=== PATIENT | male | born 2000 | race Caucasian/White ===

== ENCOUNTER 2022-10-27 12:41 | Outpatient (OUT) | payer OTHER, SELFPAY ==
[2022-10-27 12:45] VITALS: BP 128/72; PULSE 91; RESP 18; TEMP 36.8; O2SAT 96
[2022-10-27] MEDS: SODIUM CHLORIDE 0.9% IV (13:22)
[2022-10-27] MEDS: INFLIXIMAB DYYB IV (13:22)
== END 2022-10-27 12:42 | disposition home or self-care (01) ==
DX: K51.90 Ulcerative colitis, unspecified, without complications (principal); K58.9 Irritable bowel syndrome, unspecified
CPT/HCPCS: 36415; 96365; 96366; Q5103

== ENCOUNTER 2023-01-03 08:21 | Outpatient (RCR) | payer OTHER, SELFPAY ==
[2023-01-03 15:03] VITALS: BP 120/80; PULSE 80; RESP 18; TEMP 36.6
[2023-01-03 15:28] LABS: Basophils Percent Auto 0.4 % (0.2-2.0); Eosinophils Absolute Auto 0.1 10^3/uL (0.0-0.7); Eosinophils Percent Auto 1.7 % (0.9-7.0); Hematocrit 44.9 % (42.0-54.0); Hemoglobin 14.9 g/dL (14.0-18.0); Immature Granulocytes Abs Auto 0.01 10^3/uL (0.00-0.03); Immature Granulocytes Pct Auto 0.2 % (0.0-0.5); Lymphocytes Absolute Auto 1.3 10^3/uL (1.2-3.8); Lymphocytes Percent Auto 28.8 % (20.5-60.0); Mean Corpuscular HGB Conc 33.2 g/dL (29.9-35.2); Mean Corpuscular Hemoglobin 30.8 pg (25.9-34.0); Mean Corpuscular Volume 92.8 fL (80.0-94.0); Mean Platelet Volume 11.6 fL (9.5-13.5); Monocytes Absolute Auto 0.4 10^3/uL (0.3-0.8); Monocytes Percent Auto 8.8 % (1.7-12.0); Neutrophils Absolute Auto 2.8 10^3/uL (1.4-6.5); Neutrophils Percent Auto 60.1 % (43.0-75.0); Platelet Count 196 10^3/uL (150-450); Red Blood Count 4.84 10^6/uL (4.70-6.10); Red Cell Distribution Width 11.9 % (11.0-15.0); White Blood Count 4.7 10^3/uL (4.0-11.0)
[2023-01-03] MEDS: INFLIXIMAB DYYB IV (15:30)
[2023-01-03] MEDS: SODIUM CHLORIDE 0.9% IV (15:30)
[2023-01-03 15:34] LABS: Erythrocyte Sedimentation Rate 18 mm/hr (<=15)
--- NOTE | 2023-01-03 15:47 | PC.NURSE ---
patient declines premedication of tylenol, benadryl or solumedrol
[2023-01-03 15:59] VITALS: BP 124/74; PULSE 85; RESP 16; O2SAT 95
--- NOTE | 2023-01-03 16:00 | PC.NURSE ---
1555 tolerating infusion, started at 15ml/hr for vtbi of 3.75, 20 ml/hr vtbi 5ml, 40 ml/hr vtbi 10 ml, 80ml/vtbi 20 ml, 160ml for remainder of infusion. Tolerating well no itching, no shortness of breath. IV site clear.
[2023-01-03 16:06] LABS: Alanine Aminotransferase 30 U/L (16-63); Albumin Level 3.9 g/dL (3.4-5.0); Alkaline Phosphatase 97 U/L (46-116); Aspartate Amino Transferase 19 U/L (15-37); Bilirubin Direct 0.1 mg/dL (0.0-0.2); Bilirubin Total 0.4 mg/dL (0.2-1.0); Globulin 3.9 g/dL; Total Protein 7.8 g/dL (6.4-8.2)
[2023-01-03 16:08] LABS: C Reactive Protein <0.2 mg/dL (<=1.0)
[2023-01-03 16:25] VITALS: BP 119/78; PULSE 80; RESP 16; TEMP 36.3; O2SAT 96
--- NOTE | 2023-01-03 16:26 | PC.NURSE ---
tolerating infusion wihtout s/s of reaction. Eating meal at present
--- NOTE | 2023-01-03 16:41 | PC.NURSE ---
Labs faxed to Dr[facility]. Tolerating transfusion without any s/s of reaction.
--- NOTE | 2023-01-03 17:41 | PC.NURSE ---
Infusion without diffuculty. appears to be resting, eyes closed, respirations with ease
[2023-01-03 18:02] VITALS: BP 124/76; PULSE 76; RESP 16; TEMP 36.6; O2SAT 98
== END 2023-01-16 23:59 | disposition home or self-care (01) ==
LOC: INF 08:21
DX: K51.90 Ulcerative colitis, unspecified, without complications (principal)
CPT/HCPCS: 36415; 80076; 85025; 85652; 86140; 96365; 96366; Q5103

== ENCOUNTER 2023-03-16 07:30 | Outpatient (RCR) | payer OTHER, SELFPAY ==
[2023-03-16 11:04] VITALS: BP 129/71; PULSE 86; RESP 18; TEMP 36.8; O2SAT 96
[2023-03-16] MEDS: INFLIXIMAB DYYB IV (11:08)
[2023-03-16] MEDS: SODIUM CHLORIDE 0.9% IV (11:08)
[2023-03-16 11:11] LABS: Basophils Percent Auto 0.6 % (0.2-2.0); Eosinophils Absolute Auto 0.2 10^3/uL (0.0-0.7); Eosinophils Percent Auto 3.1 % (0.9-7.0); Hematocrit 47.7 % (42.0-54.0); Hemoglobin 15.8 g/dL (14.0-18.0); Immature Granulocytes Abs Auto 0.01 10^3/uL (0.00-0.03); Immature Granulocytes Pct Auto 0.2 % (0.0-0.5); Lymphocytes Absolute Auto 1.7 10^3/uL (1.2-3.8); Lymphocytes Percent Auto 32.4 % (20.5-60.0); Mean Corpuscular HGB Conc 33.1 g/dL (29.9-35.2); Mean Corpuscular Hemoglobin 30.4 pg (25.9-34.0); Mean Corpuscular Volume 91.9 fL (80.0-94.0); Mean Platelet Volume 11.1 fL (9.5-13.5); Monocytes Absolute Auto 0.6 10^3/uL (0.3-0.8); Monocytes Percent Auto 10.8 % (1.7-12.0); Neutrophils Absolute Auto 2.7 10^3/uL (1.4-6.5); Neutrophils Percent Auto 52.9 % (43.0-75.0); Platelet Count 198 10^3/uL (150-450); Red Blood Count 5.19 10^6/uL (4.70-6.10); Red Cell Distribution Width 11.8 % (11.0-15.0); White Blood Count 5.1 10^3/uL (4.0-11.0)
--- NOTE | 2023-03-16 11:14 | PC.NURSE ---
1055 Arrival ambulatory to chair 2. Alert oriented. no complaints offered, offered drink/food/blanket/pillow, patient declines at this time. seated in recliner. Iv initiated rt forearm wiht#22 on 1 attempt tolerated well. labs drawn and sent to lab. 1110 Inflectra initiated utilizing multistep function: step 1 15ml/hr for 15 mins step 2 20 ml/hr for 15 min step 3 40 ml/hr for 15 min step 4 80 ml/hr for 15 min step 5 160ml/hr for remainder of infusion Intructed to call for any type of reaction. Patient declines tylenol and benadry.
[2023-03-16 11:15] LABS: Erythrocyte Sedimentation Rate 14 mm/hr (<=15)
[2023-03-16 11:30] LABS: Alanine Aminotransferase 37 U/L (16-63); Albumin Globulin Ratio 0.9; Albumin Level 3.5 g/dL (3.4-5.0); Alkaline Phosphatase 81 U/L (46-116); Aspartate Amino Transferase 20 U/L (15-37); BUN Creatinine Ratio 10.1; Bilirubin Direct 0.1 mg/dL (0.0-0.2); Bilirubin Total 0.6 mg/dL (0.2-1.0); Calcium 9.2 mg/dL (8.5-10.1); Carbon Dioxide 31.9 mmol/L (21.0-32.0); Chloride 105 mmol/L (98-107); Estimated GFR (African America >60 (>=60); Estimated GFR (Non-African Ame >60 (>=60); Globulin 4.1 g/dL; Glucose 92 mg/dL (74-106); Potassium 3.9 mmol/L (3.5-5.1); Sodium 143 mmol/L (136-145); Total Protein 7.6 g/dL (6.4-8.2)
[2023-03-16 11:31] LABS: C Reactive Protein <0.50 mg/dL (<=0.50)
--- NOTE | 2023-03-16 11:33 | PC.NURSE ---
1130 Tolerating infusion without difficulty. no s/s of rxn
--- NOTE | 2023-03-16 13:44 | PC.NURSE ---
1145 tolerating infusion without any problems, resting quietly in recliner, eyes closed respirations with ease
--- NOTE | 2023-03-16 13:44 | PC.NURSE ---
1200 iv infusion rate is being titrated every 15 mins as documented above. tolerating well
--- NOTE | 2023-03-16 13:46 | PC.NURSE ---
1300 inusion infusing at 160 ml hr, tolerating well, reclined in recliner, eyes shut respirations with ease.
--- NOTE | 2023-03-16 13:46 | PC.NURSE ---
1330 infusion completed. tolerated well with no s/s of reaction. IV site dc'd catheter intact, cotton ball applied, pressure applied. wrapped with coban, patient tolerated well, released ambulatory.
== END 2023-03-18 23:59 | disposition home or self-care (01) ==
LOC: INF 07:30
DX: K58.9 Irritable bowel syndrome, unspecified (principal)
CPT/HCPCS: 36415; 80048; 80076; 85025; 85652; 86140; 96365; 96366; Q5103

== ENCOUNTER 2023-05-21 07:35 | Outpatient (RCR) | payer OTHER, SELFPAY ==
[2023-05-21] MEDS: INFLIXIMAB DYYB IV (09:24)
[2023-05-21] MEDS: SODIUM CHLORIDE 0.9% IV (09:24)
[2023-05-21 09:45] VITALS: BP 124/77; PULSE 82; RESP 16; TEMP 36.6; O2SAT 98
[2023-05-21 10:00] VITALS: BP 124/77; PULSE 92; RESP 14; TEMP 36.4; O2SAT 96
[2023-05-21 10:00] LABS: Basophils Percent Auto 0.6 % (0.2-2.0); Eosinophils Absolute Auto 0.2 10^3/uL (0.0-0.7); Eosinophils Percent Auto 4.4 % (0.9-7.0); Hematocrit 45.7 % (42.0-54.0); Hemoglobin 15.3 g/dL (14.0-18.0); Immature Granulocytes Abs Auto 0.02 10^3/uL (0.00-0.03); Immature Granulocytes Pct Auto 0.4 % (0.0-0.5); Lymphocytes Percent Auto 38.3 % (20.5-60.0); Mean Corpuscular HGB Conc 33.5 g/dL (29.9-35.2); Mean Corpuscular Hemoglobin 30.3 pg (25.9-34.0); Mean Corpuscular Volume 90.5 fL (80.0-94.0); Mean Platelet Volume 11.6 fL (9.5-13.5); Monocytes Absolute Auto 0.6 10^3/uL (0.3-0.8); Monocytes Percent Auto 11.4 % (1.7-12.0); Neutrophils Absolute Auto 2.3 10^3/uL (1.4-6.5); Neutrophils Percent Auto 44.9 % (43.0-75.0); Platelet Count 184 10^3/uL (150-450); Red Blood Count 5.05 10^6/uL (4.70-6.10); Red Cell Distribution Width 12.1 % (11.0-15.0); White Blood Count 5.2 10^3/uL (4.0-11.0)
[2023-05-21 10:09] LABS: Alanine Aminotransferase 26 U/L (16-63); Albumin Globulin Ratio 0.8; Albumin Level 3.4 g/dL (3.4-5.0); Alkaline Phosphatase 85 U/L (46-116); Anion Gap 10.8; Aspartate Amino Transferase 13 U/L (15-37); BUN Creatinine Ratio 10.4; Bilirubin Direct 0.1 mg/dL (0.0-0.2); Bilirubin Total 0.3 mg/dL (0.2-1.0); C Reactive Protein <0.50 mg/dL (<=0.50); Calcium 8.5 mg/dL (8.5-10.1); Carbon Dioxide 31.6 mmol/L (21.0-32.0); Chloride 104 mmol/L (98-107); Estimated GFR (African America >60 (>=60); Estimated GFR (Non-African Ame >60 (>=60); Globulin 4.1 g/dL; Glucose 89 mg/dL (74-106); Potassium 3.4 mmol/L (3.5-5.1); Sodium 143 mmol/L (136-145); Total Protein 7.5 g/dL (6.4-8.2)
[2023-05-21 10:15] VITALS: BP 112/71; PULSE 76; RESP 14; TEMP 36.1; O2SAT 96
[2023-05-21 10:27] LABS: Erythrocyte Sedimentation Rate 14 mm/hr (<=15)
[2023-05-21 10:40] VITALS: BP 124/75; PULSE 92; RESP 14; TEMP 33.3; O2SAT 96
[2023-05-21 11:15] VITALS: BP 127/71; PULSE 85; RESP 16; TEMP 36; O2SAT 98
[2023-05-21 11:40] VITALS: BP 120/74; PULSE 84; RESP 14; TEMP 36.1; O2SAT 98
--- NOTE | 2023-05-21 13:54 | PC.NURSE ---
0855: Pt. to [facility] amb. for Inflectra infusion. Seated in recliner. VSS. #22 gauge IV initiated to right ac on first attempt without difficulty. Blood drawn from IV for ordered labs. Flushes easily without redness or edema. Pt. tolerated without c/o.
--- NOTE | 2023-05-21 14:11 | PC.NURSE ---
0924: IV Inflectra initiated at this time. Pt. given OJ. Declines wanting to eat. 0945: VSS. Denies needs or c/o. 1000: Cont. to tolerate infusion without c/o. VSS. IV site remains clear. 1015: No new changes observed. Pt. resting with eyes closed. VSS. 1100: Pt. awake. Denies c/o or needs. 1140: Infusion completed without s&s of transfusion reaction. IV flushed with saline and d/c'c. 1145: D/c'd amb. to home.
== END 2023-06-17 23:59 | disposition home or self-care (01) ==
LOC: INF 07:35
DX: K58.9 Irritable bowel syndrome, unspecified (principal)
CPT/HCPCS: 36415; 80048; 80076; 85025; 85652; 86140; 96365; 96366; Q5103

== ENCOUNTER 2023-07-19 07:26 | Outpatient (RCR) | payer OTHER, SELFPAY ==
[2023-07-19 10:07] VITALS: BP 129/76; PULSE 100; TEMP 36.6; O2SAT 98
--- NOTE | 2023-07-19 10:15 | PC.NURSE ---
1000 arrival ambulatory to chair 4. alert oriented. iv initiated RACF, labs obtained. 1010 breakfast ordered.
[2023-07-19] MEDS: INFLIXIMAB DYYB IV (10:38)
[2023-07-19] MEDS: SODIUM CHLORIDE 0.9% IV (10:38)
[2023-07-19 10:46] LABS: Basophils Percent Auto 0.5 % (0.2-2.0); Eosinophils Absolute Auto 0.1 10^3/uL (0.0-0.7); Eosinophils Percent Auto 2.5 % (0.9-7.0); Hematocrit 42.9 % (42.0-54.0); Hemoglobin 14.1 g/dL (14.0-18.0); Immature Granulocytes Abs Auto 0.01 10^3/uL (0.00-0.03); Immature Granulocytes Pct Auto 0.2 % (0.0-0.5); Lymphocytes Absolute Auto 1.3 10^3/uL (1.2-3.8); Lymphocytes Percent Auto 32.7 % (20.5-60.0); Mean Corpuscular HGB Conc 32.9 g/dL (29.9-35.2); Mean Corpuscular Hemoglobin 30.2 pg (25.9-34.0); Mean Corpuscular Volume 91.9 fL (80.0-94.0); Mean Platelet Volume 11.5 fL (9.5-13.5); Monocytes Absolute Auto 0.4 10^3/uL (0.3-0.8); Neutrophils Absolute Auto 2.2 10^3/uL (1.4-6.5); Neutrophils Percent Auto 54.1 % (43.0-75.0); Platelet Count 170 10^3/uL (150-450); Red Blood Count 4.67 10^6/uL (4.70-6.10); Red Cell Distribution Width 11.9 % (11.0-15.0)
[2023-07-19 10:59] LABS: Erythrocyte Sedimentation Rate 14 mm/hr (<=15)
[2023-07-19 11:15] LABS: Alanine Aminotransferase 26 U/L (16-63); Albumin Level 3.6 g/dL (3.4-5.0); Alkaline Phosphatase 69 U/L (46-116); Anion Gap 12.6; Aspartate Amino Transferase 15 U/L (15-37); BUN Creatinine Ratio 13.3; Bilirubin Direct 0.2 mg/dL (0.0-0.2); Bilirubin Total 0.8 mg/dL (0.2-1.0); Carbon Dioxide 26.7 mmol/L (21.0-32.0); Chloride 105 mmol/L (98-107); Estimated GFR (African America >60 (>=60); Estimated GFR (Non-African Ame >60 (>=60); Globulin 3.6 g/dL; Glucose 122 mg/dL (74-106); Potassium 3.3 mmol/L (3.5-5.1); Sodium 141 mmol/L (136-145); Total Protein 7.2 g/dL (6.4-8.2)
[2023-07-19 11:20] LABS: C Reactive Protein <0.50 mg/dL (<=0.50)
[2023-07-19 11:32] VITALS: BP 147/79; PULSE 91; TEMP 36.9; O2SAT 98
--- NOTE | 2023-07-19 11:39 | PC.NURSE ---
1115 tolerating infusion without any s/s of rxn. titrated according to MAR.
--- NOTE | 2023-07-19 11:40 | PC.NURSE ---
eats 100% breakfast. ambulated to bathroom
== END 2023-07-20 15:28 | disposition home or self-care (01) ==
LOC: INF 07:26
DX: K51.00 Ulcerative (chronic) pancolitis without complications (principal); K52.9 Noninfective gastroenteritis and colitis, unspecified; D84.9 Immunodeficiency, unspecified
CPT/HCPCS: 80048; 80076; 85025; 85652; 86140; 96365; 96366; Q5103

== ENCOUNTER 2023-08-29 21:12 | Emergency (ER) | payer OTHER, SELFPAY ==
[2023-08-29 21:29] VITALS: BP 134/79; PULSE 91; TEMP 37.2; O2SAT 100; BMI 22.9
--- OUTSIDE RECORDS SUMMARY | 2023-08-29 21:30 | XMS_ITS | CCD ---
Author Organization [facility] Care Team Providers Care Applications Programmer Name Role Phone MISC, DOCTOR Admitting Unavailable MISC, DOCTOR Consulting Unavailable MISC, DOCTOR Attending Unavailable REQUEST, NONE LISTED Primary Care Unavaila ble MISC, DOCTOR Admitting Unavailable MISC, DOCTOR Consulting Unavailable MISC, DOCTOR Attending Unavailable REQUEST, NONE LISTED Primary Care Unavaila ble MISC, DOCTOR Admitting Unavailable MISC, DOCTOR Consulting Unavailable MISC, DOCTOR Attending Unavailable REQUEST, NONE LISTED Primary Care Unavaila ble MISC, DR BELLA Admitting Unavailable MISC, DR BELLA Consulting Unavailable REQUEST, NONE LISTED Primary Care Unavaila ble MISC, DOCTOR Attending Unavailable MISC, DOCTOR Attending Unavailable MISC, DR BELLA Admitting Unavailable MISC, DR BELLA Consulting Unavailable REQUEST, NONE LISTED Primary Care Unavaila ble MISC, DR BELLA Admitting Unavailable MISC, DR BELLA Consulting Unavailable MISC, DOCTOR Attending Unavailable REQUEST, NONE LISTED Primary Care Unavaila ble Juan Srinivasan MD Primary Care Provider JOSI MARIANO Attending Unavailable UNKNOWN Referring Unavailable JUAN SRINIVASAN Primary Care Unavailable JOSI MARIANO Attending Unavailable JUAN SRINIVASAN Primary Care Unavailable JUAN SRINIVASAN Referring Unavailable JOSI MARIANO Attending Unavailable JOSI MARIANO Referring Unavailable JUAN SRINIVASAN Primary Care Unavailable Provider, None Primary Care Unavailable Virginia Llanes PA-C Admitting Unavailable Virginia Llanes PA-C Attending Unavailable Provider, None Primary Care Unavailable NO FAMILY, PHYSICIAN Primary Care Provider Unava ilable DO Garrett Dominguez Jr Attending Provider [phone] DO Chad Wren Attending Provider MD Josué Kimble Referring Provider NO FAMILY, PHYSICIAN Primary Care Unavailable Chad Wren Attending Unavailable Chad Wren Admitting Unavailable NO FAMILY, PHYSICIAN Primary Care Unavailable Garrett Dominguez Jr Attending Unavailable Garrett Dominguez Jr Admitting Unavailable Garrett Dominguez Jr Admitting Unavailable Josué Kimble Referring Unavail able NO FAMILY, PHYSICIAN Primary Care Unavailable Garrett Dominguez Jr Attending Unavailable Allergies Allergy Classification Reported Allergen(s) Allergy Type Date of Onset Reaction(s) Facility (1 source) No Known Medication Allergies; Translations: [No Known Medication Allergies] Propensity to adverse reactions to drug (disorder) [facility] Repository Medications Current Medications Medication Drug Class(es) Dates Sig (Normalized) Sig (Original) inFLIXimab-dyyb 100 mg injection (1 source) Tumor Necrosis Factor Yuri Start: 03-29-2021 inFLIXimab-dyyb (INFLECTRA) 100 MG SOLR injection 400mg IV Infusion every 8 weeks 4 Each 5 03/29/2021 Active Problems Active Problems Problem Classification Problem Date Documented Da te Episodic/Chronic Deficiency and other anemia (1 source) Iron deficiency anemia due to blood loss; Translations: [Iron deficiency anemia secondary to blood loss (chronic)] Onset: 05-05-2015 Resolved: 04-24-2016 04-24-2016 Chronic Immunity disorders (1 source) Immunosuppression; Translations: [Immunodeficiency, unspecified] Onset: 11-04-2015 11-04-2015 Chronic Regional enteritis and ulcerative colitis (5 sources) Ulcerative (chronic) pancolitis without complications; Translations: [Ulcerative pancolitis] Onset: 05-13-2015 Chronic Past or Other Problems Problem Classification Problem Date Documented Da te Episodic/Chronic Abdominal pain (1 source) Abdominal pain; Translations: [Unspecified abdominal pain] Onset: 05-05-2015 Resolved: 05-05-2015 05-05-2015 Episodic Gastrointestinal hemorrhage (2 sources) Hematochezia; Translations: [Melena] Onset: 05-05-2015 Resolved: 05-09-2015 05-09-2015 Episodic Noninfectious gastroenteritis (1 source) Colitis; Translations: [Noninfective gastroenteritis and colitis, unspecified] Onset: 05-06-2015 Resolved: 04-24-2016 04-24-2016 Episodic Results Test Name Value Interpretation Reference Range Facility Alanine aminotransferase [En zymatic activity/volume] in Serum or PlasmaOrdered By: Chad Wren on 03-29-2023 ALT [Catalytic activity/Vol] 18 U/L 7-52 [facility] Albumin [Mass/volume] in Ser um or Plasma by Bromocresol green (BCG) dye binding methoOrdered By: Chad Wren on 03-29-2023 Albumin BCG dye [Mass/Vol] 4.2 g/dL 3.5-5.7 [facility] Alkaline phosphatase [Enzyma tic activity/volume] in Serum or PlasmaOrdered By: Chad Wren on 03-29-2023 ALP [Catalytic activity/Vol] 65 U/L 34-104 [facility] Aspartate aminotransferase [ Enzymatic activity/volume] in Serum or PlasmaOrdered By: Chad Wren on 03-29-2023 AST [Catalytic activity/Vol] 15 U/L 13-39 [facility] Basophils Auto (Bld) [#/Vol] Ordered By: Chad Wren on 03-29-2023 Basophils (Bld) [#/Vol] 0.0 10*3/uL 0.0-0.2 [facility] Basophils/100 WBC Auto (Bld) Ordered By: Chad Wren on 03-29-2023 Basophils/100 WBC (Bld) 0.2 % . [facility] Bilirubin.total [Mass/volume ] in Serum or PlasmaOrdered By: Chad Wren on 03-29-2023 Bilirubin [Mass/Vol] 0.8 mg/dL 0.3-1.0 [facility] Calcium [Mass/volume] in Ser um or PlasmaOrdered By: Chad Wren on 03-29-2023 Calcium [Mass/Vol] 9.4 mg/dL 8.6-10.3 [facility] Carbon dioxide, total [Moles /volume] in Serum or PlasmaOrdered By: Chad Wren on 03-29-2023 CO2 [Moles/Vol] 30.2 mmol/L 21.0-31.0 [facility] Chloride [Moles/volume] in S mitzy or PlasmaOrdered By: Chad Wren on 03-29-2023 Chloride [Moles/Vol] 106 mmol/L 98-107 [facility] Cholesterol [Mass/volume] in Serum or PlasmaOrdered By: Chad Wren on 03-29-2023 Cholesterol [Mass/Vol] 152 mg/dL 140-200 [facility] Comment on above: Chol less than 200 m g/dl low riskChol 201-239 mg/dl borderline riskChol 240 mg/dl and greater high risk Cholesterol in LDL Calc [Mas s/Vol]Ordered By: Chad Wren on 03-29-2023 Cholesterol in LDL [Mass/Vol] 89 mg/dL 0-100 [facility] Comment on above: LDL ATP III CLASSIFI CATIONLDL less than 100 mg/dL OptimalLDL 100-129 mg/dL Near or above optimalLDL 130-159 mg/dL Borderline highLDL 160-189 mg/dL HighLDL greater than 189 mg/dL Very high Cholesterol in VLDL Calc [Ma ss/Vol]Ordered By: Chad Wren on 03-29-2023 Cholesterol in VLDL [Mass/Vol] 13 mg/dL [facility] Complete Blood Count no refl exon 03-29-2023 Basophils (Bld) [#/Vol] 0.0 10*3/uL Normal 0.0-0.2 [facility] Comment on above: Result Comment: PERF ORMED BY: [facility] [address] [place] [address] PATHOLOGIST [employer] ALBERTO AGUIAR M.D. Performed By: #### C MP, CHC CBC, LIPID, TSH3, T4T #### [facility] [address] [place] [address] [place] Basophils/100 WBC (Bld) 0.2 % Normal . [facility] Comment on above: Performed By: #### C MP, CHC CBC, LIPID, TSH3, T4T #### [facility] [address] [place] [id number] [place] Eosinophils (Bld) [#/Vol] 0.1 10*3/uL Normal 0.0-0.45 [facility] Comment on above: Performed By: #### C MP, CHC CBC, LIPID, TSH3, T4T #### [facility] [address] [place] [id number] [place] Eosinophils/100 WBC (Bld) 2.1 % Normal . [facility] Comment on above: Performed By: #### C MP, CHC CBC, LIPID, TSH3, T4T #### [address] Erythrocyte distribution width (RBC) [Ratio] 12.3 % Normal 12.0-14.8 [facility] Comment on above: Performed By: #### C MP, CHC CBC, LIPID, TSH3, T4T #### [address] Hematocrit (Bld) [Volume fraction] 45.7 % Normal 38.8-50.0 [facility] Comment on above: Performed By: #### C MP, CHC CBC, LIPID, TSH3, T4T #### [address] Hemoglobin (Bld) [Mass/Vol] 15.5 g/dL Normal 13.0-17.0 [facility] Comment on above: Performed By: #### C MP, CHC CBC, LIPID, TSH3, T4T #### [address] Lymphocytes (Bld) [#/Vol] 2.2 10*3/uL Normal 1.00-4.8 [facility] Comment on above: Performed By: #### C MP, CHC CBC, LIPID, TSH3, T4T #### [address] Lymphocytes/100 WBC (Bld) 40.9 % Normal . [facility] Comment on above: Performed By: #### C MP, CHC CBC, LIPID, TSH3, T4T #### [address] MCH (RBC) [Entitic mass] 30.7 pg Normal 27.5-35.2 [facility] Comment on above: Performed By: #### C MP, CHC CBC, LIPID, TSH3, T4T #### [address] MCV (RBC) [Entitic vol] 90.5 fL Normal 83.5-101 [facility] Comment on above: Performed By: #### C MP, CHC CBC, LIPID, TSH3, T4T #### [facility] [address] [place] [address] Mean Corpuscular HGB Conc 33.9 g/dL Normal 32.5-35.6 [facility] Comment on above: Performed By: #### C MP, CHC CBC, LIPID, TSH3, T4T #### [address] Monocytes (Bld) [#/Vol] 0.4 10*3/uL Normal 0.0-0.8 [facility] Comment on above: Performed By: #### C MP, CHC CBC, LIPID, TSH3, T4T #### [address] Monocytes/100 WBC (Bld) 8.1 % Normal . [facility] Comment on above: Performed By: #### C MP, CHC CBC, LIPID, TSH3, T4T #### [address] Neutrophils (Bld) [#/Vol] 2.6 10*3/uL Normal 1.8-7.7 [facility] Comment on above: Performed By: #### C MP, CHC CBC, LIPID, TSH3, T4T #### [address] Neutrophils/100 WBC (Bld) 48.7 % Normal . [facility] Comment on above: Performed By: #### C MP, CHC CBC, LIPID, TSH3, T4T #### [place] [address] [place] NRBC% 0.2 /100{WBC} Normal 0-0.5 [facility] Comment on above: Performed By: #### C MP, CHC CBC, LIPID, TSH3, T4T #### [address] Platelet mean volume (Bld) [Entitic vol] 10.5 fL High 6.6-10.1 [facility] Comment on above: Performed By: #### C MP, CHC CBC, LIPID, TSH3, T4T #### [facility] [address] Platelets (Bld) [#/Vol] 188 10*3/uL Normal 150-450 [facility] Comment on above: Performed By: #### C MP, CHC CBC, LIPID, TSH3, T4T #### [facility] [address] RBC (Bld) [#/Vol] 5.05 10*6/uL Normal 3.90-5.60 [facility] Comment on above: Performed By: #### C MP, CHC CBC, LIPID, TSH3, T4T #### [address] WBC (Bld) [#/Vol] 5.4 10*3/uL Normal 4.1-10.5 [facility] Comment on above: Performed By: #### C MP, CHC CBC, LIPID, TSH3, T4T #### [facility] [address] [place] [address] Comprehensive Metabolic Pane rebel 03-29-2023 Albumin [Mass/Vol] 4.2 g/dL Normal 3.5-5.7 [facility] Comment on above: Performed By: #### C MP, CHC CBC, LIPID, TSH3, T4T #### [facility] [address] [place] [address] Albumin/Globulin [Mass ratio] 1.4 {ratio} Normal [facility] Comment on above: Performed By: #### C MP, CHC CBC, LIPID, TSH3, T4T #### [facility] [address] ALP [Catalytic activity/Vol] 65 U/L Normal 34-104 [facility] Comment on above: Performed By: #### C MP, CHC CBC, LIPID, TSH3, T4T #### [facility] [address] ALT [Catalytic activity/Vol] 18 U/L Normal 7-52 [facility] Comment on above: Performed By: #### C MP, CHC CBC, LIPID, TSH3, T4T #### [facility] [address] [place] [address] Anion gap [Moles/Vol] 7.9 mmol/L Normal 6.0-15.0 [facility] Comment on above: Performed By: #### C MP, CHC CBC, LIPID, TSH3, T4T #### [address] AST [Catalytic activity/Vol] 15 U/L Normal 13-39 [facility] Comment on above: Performed By: #### C MP, CHC CBC, LIPID, TSH3, T4T #### [address] Bilirubin [Mass/Vol] 0.8 mg/dL Normal 0.3-1.0 [facility] Comment on above: Performed By: #### C MP, CHC CBC, LIPID, TSH3, T4T #### [address] Calcium [Mass/Vol] 9.4 mg/dL Normal 8.6-10.3 [facility] Comment on above: Performed By: #### C MP, CHC CBC, LIPID, TSH3, T4T #### [address] Chloride [Moles/Vol] 106 mmol/L Normal 98-107 [facility] Comment on above: Performed By: #### C MP, CHC CBC, LIPID, TSH3, T4T #### [address] CO2 [Moles/Vol] 30.2 mmol/L Normal 21.0-31.0 [facility] Comment on above: Performed By: #### C MP, CHC CBC, LIPID, TSH3, T4T #### [address] Creatinine [Mass/Vol] 1.12 mg/dL Normal 0.70-1.30 [facility] Comment on above: Performed By: #### C MP, CHC CBC, LIPID, TSH3, T4T #### [address] GFR/1.73 sq M.predicted MDRD (S/P/Bld) [Vol rate/Area] mL/min/{1.73_m2} Normal [facility] Comment on above: Performed By: #### C MP, CHC CBC, LIPID, TSH3, T4T #### [facility] [address] Globulin (S) [Mass/Vol] 2.9 g/dL Normal [facility] Comment on above: Performed By: #### C MP, CHC CBC, LIPID, TSH3, T4T #### [address] Glucose [Mass/Vol] 84 mg/dL Normal 70-100 [facility] Comment on above: Result Comment: [facility] Glucose Reference Range is dependent on time and content of last meal. Glucose of more than 200 mg/dL in a nonstressed, ambulatory subject supports the diagnosis of Diabetes Mellitus. ADA recommended reference range Performed By: #### C MP, CHC CBC, LIPID, TSH3, T4T #### [address] Potassium [Moles/Vol] 4.1 mmol/L Normal 3.5-5.1 [facility] Comment on above: Performed By: #### C MP, CHC CBC, LIPID, TSH3, T4T #### [address] Protein [Mass/Vol] 7.1 g/dL Normal 6.4-8.9 [facility] Comment on above: Performed By: #### C MP, CHC CBC, LIPID, TSH3, T4T #### [address] Sodium [Moles/Vol] 140 mmol/L Normal 136-145 [facility] Comment on above: Performed By: #### C MP, CHC CBC, LIPID, TSH3, T4T #### [address] [place] [address] [place] Urea nitrogen [Mass/Vol] 13 mg/dL Normal 7-25 [facility] Comment on above: Performed By: #### C MP, CHC CBC, LIPID, TSH3, T4T #### [facility] [address] [place] [id number] [place] Creatinine [Mass/volume] in Serum or PlasmaOrdered By: Chad Wren on 03-29-2023 Creatinine [Mass/Vol] 1.12 mg/dL 0.70-1.30 [facility] Eosinophils Auto (Bld) [#/Vo l]Ordered By: Chad Wren on 03-29-2023 Eosinophils (Bld) [#/Vol] 0.1 10*3/uL 0.0-0.45 [facility] Eosinophils/100 WBC Auto (Bl d)Ordered By: Chad Wren on 03-29-2023 Eosinophils/100 WBC (Bld) 2.1 % . [facility] Erythrocyte distribution wid th Auto (RBC) [Ratio]Ordered By: Chad Wren on 03-29-2023 Erythrocyte distribution width (RBC) [Ratio] 12.3 % 12.0-14.8 [facility] Globulin Calc (S) [Mass/Vol] Ordered By: Chad Wren on 03-29-2023 Globulin (S) [Mass/Vol] 2.9 g/dL [facility] Glucose [Mass/volume] in Ser um or PlasmaOrdered By: Chad Wren on 03-29-2023 Glucose [Mass/Vol] 84 mg/dL 70-100 [facility] Comment on above: ADA recommended refe rence rangeRandom Glucose Reference Range is dependent on time and content of last meal. Glucose of more than 200 mg/dL in a nonstressed, ambulatory subject supports the diagnosis of Diabetes Mellitus. Hematocrit Auto (Bld) [Volum e fraction]Ordered By: Chad Wren on 03-29-2023 Hematocrit (Bld) [Volume fraction] 45.7 % 38.8-50.0 [facility] Hemoglobin [Mass/volume] in BloodOrdered By: Chad Wren on 03-29-2023 Hemoglobin (Bld) [Mass/Vol] 15.5 g/dL 13.0-17.0 [facility] Leukocytes [#/volume] correc ruben for nucleated erythrocytes in Blood by Automated counOrdered By: Chad Wren on 03-29-2023 WBC corrected for nucl RBC Auto (Bld) [#/Vol] 5.4 10*3/uL 4.1-10.5 [facility] Lipid Panelon 03-29-2023 Cholesterol [Mass/Vol] 152 mg/dL Normal 140-200 [facility] Comment on above: Result Comment: Chol less than 200 mg/dl low risk Chol 201-239 mg/dl borderline risk Chol 240 mg/dl and greater high risk Performed By: #### C MP, CHC CBC, LIPID, TSH3, T4T #### [facility] [address] Cholesterol in HDL [Mass/Vol] 50 mg/dL Normal 23-92 [facility] Comment on above: Result Comment: HDL CHOL ATP-III CLASSIFICATION Cardiovascular Risk HDL > or equal to 60 mg/dL LOW HDL < 40 mg/dL HIGH Performed By: #### C MP, CHC CBC, LIPID, TSH3, T4T #### [facility] [address] [place] [address] [facility] Cholesterol.total/Choles terol in HDL [Mass ratio] 3.0 {ratio} Normal <5.0 [facility] Comment on above: Performed By: #### C MP, CHC CBC, LIPID, TSH3, T4T #### [facility] [address] [place] [address] [facility] LDL Cholesterol,Calculated 89 mg/dL Normal 0-100 [facility] Comment on above: Result Comment: LDL ATP III CLASSIFICATION LDL less than 100 mg/dL Optimal LDL 100-129 mg/dL Near or above optimal LDL 130-159 mg/dL Borderline high LDL 160-189 mg/dL High LDL greater than 189 mg/dL Very high Performed By: #### C MP, CHC CBC, LIPID, TSH3, T4T #### [facility] [address] [place] [address] [facility] Triglyceride w/Reflex 65 mg/dL Normal 0-149 [facility] Comment on above: Result Comment: TRIG ATP III CLASSIFICATION TRIG less than 150 mg/dL Normal TRIG 150-199 mg/dL Borderline high TRIG 200-500 mg/dL High TRIG greater than 500 mg/dL Very high Standard traceable to the Center for Disease Conrtrol and Prevention (CDC) test method. Performed By: #### C MP, CHC CBC, LIPID, TSH3, T4T #### [facility] [address] VLDL CHOLESTEROL 13 mg/dL Normal [facility] Comment on above: Performed By: #### C MP, CHC CBC, LIPID, TSH3, T4T #### [facility] [address] Lymphocytes Auto (Bld) [#/Vo l]Ordered By: Chad Wren on 03-29-2023 Lymphocytes (Bld) [#/Vol] 2.2 10*3/uL 1.00-4.8 [facility] Lymphocytes/100 WBC Auto (Bl d)Ordered By: Chad Wren on 03-29-2023 Lymphocytes/100 WBC (Bld) 40.9 % . [facility] MCH Auto (RBC) [Entitic mass ]Ordered By: Chad Wren on 03-29-2023 MCH (RBC) [Entitic mass] 30.7 pg 27.5-35.2 [facility] MCHC Auto (RBC) [Mass/Vol]Or dered By: Chad Wren on 03-29-2023 MCHC (RBC) [Mass/Vol] 33.9 g/dL 32.5-35.6 [facility] MCV Auto (RBC) [Entitic vol] Ordered By: Chad Wren on 03-29-2023 MCV (RBC) [Entitic vol] 90.5 fL 83.5-101 [facility] Monocytes Auto (Bld) [#/Vol] Ordered By: Chad Wren on 03-29-2023 Monocytes (Bld) [#/Vol] 0.4 10*3/uL 0.0-0.8 [facility] Monocytes/100 WBC Auto (Bld) Ordered By: Chad Wren on 03-29-2023 Monocytes/100 WBC (Bld) 8.1 % . [facility] Neutrophils Auto (Bld) [#/Vo l]Ordered By: Chad Wren on 03-29-2023 Neutrophils (Bld) [#/Vol] 2.6 10*3/uL 1.8-7.7 [facility] Neutrophils/100 WBC Auto (Bl d)Ordered By: Chad Wren on 03-29-2023 Neutrophils/100 WBC (Bld) 48.7 % . [facility] No Panel InformationOrdered By: Chad Wren on 03-29-2023 Estimated GFR (CKD-EPI) > 60.0 mL/Min [facility] Creatinine Clearance (Chem N/A [facility] Nucleated erythrocytes [Pres ence] in Blood by Automated countOrdered By: Chad Wren on 03-29-2023 Nucleated RBC Auto Ql (Bld) 0.2 /100{WBC} 0-0.5 [facility] Platelet mean volume Auto (B ld) [Entitic vol]Ordered By: Chad Wren on 03-29-2023 Platelet mean volume (Bld) [Entitic vol] 10.5 fL 6.6-10.1 [facility] Platelets Auto (Bld) [#/Vol] Ordered By: Chad Wren on 03-29-2023 Platelets (Bld) [#/Vol] 188 10*3/uL 150-450 [facility] Potassium [Moles/volume] in Serum or PlasmaOrdered By: Chad Wren on 03-29-2023 Potassium [Moles/Vol] 4.1 mmol/L 3.5-5.1 [facility] Protein [Mass/volume] in Ser um or PlasmaOrdered By: Chad Wren on 03-29-2023 Protein [Mass/Vol] 7.1 g/dL 6.4-8.9 [facility] RBC Auto (Bld) [#/Vol]Ordere d By: Chad Wren on 03-29-2023 RBC (Bld) [#/Vol] 5.05 10*6/uL 3.90-5.60 [facility] Serum or plasma albumin/glob ulin mass ratioOrdered By: Chad Wren on 03-29-2023 Albumin/Globulin [Mass ratio] 1.4 {ratio} [facility] Serum or plasma anion gap de terminationOrdered By: Chad Wren on 03-29-2023 Anion gap [Moles/Vol] 7.9 mmol/L 6.0-15.0 [facility] Serum or plasma high density lipoprotein (HDL) cholesterol measurementOrdered By: Chad Wren on 03-29-2023 Cholesterol in HDL [Mass/Vol] 50 mg/dL 23-92 [facility] Comment on above: HDL CHOL ATP-III CLA SSIFICATION Cardiovascular RiskHDL > or equal to 60 mg/dL LOWHDL < 40 mg/dL HIGH Serum or plasma total choles terol/high density lipoprotein (HDL) cholesterol mass ratOrdered By: Chad Wren on 03-29-2023 Cholesterol.total/Choles terol in HDL [Mass ratio] 3.0 {ratio} <5.0 [facility] Sodium [Moles/volume] in Ser um or PlasmaOrdered By: Chad Wren on 03-29-2023 Sodium [Moles/Vol] 140 mmol/L 136-145 [facility] Thyroid Stimulating Hormoneo n 03-29-2023 TSH Qn 1.37 m[IU]/L Normal 0.45-5.33 [facility] Comment on above: Result Comment: PERF ORMED BY: [place] [address] PATHOLOGIST [employer] AGUIAR M.D. Performed By: #### C MP, CHC CBC, LIPID, TSH3, T4T #### [facility] [address] Thyrotropin [Units/volume] i n Serum or PlasmaOrdered By: Chad Wren on 03-29-2023 TSH Qn 1.37 m[IU]/L 0.45-5.33 [facility] Thyroxine (T4) Totalon 03-29 T4 [Mass/Vol] 7.37 ug/dL Normal 5.39-11.82 [facility] Comment on above: Performed By: #### C MP, CHC CBC, LIPID, TSH3, T4T #### [facility] [address] Thyroxine (T4) [Mass/volume] in Serum or PlasmaOrdered By: Chad Wren on 03-29-2023 T4 [Mass/Vol] 7.37 ug/dL 5.39-11.82 [facility] Triglyceride [Mass/volume] i n Serum or PlasmaOrdered By: Chad Wren on 03-29-2023 Triglyceride [Mass/Vol] 65 mg/dL 0-149 [facility] Comment on above: TRIG ATP III CLASSIF ICATIONTRIG less than 150 mg/dL NormalTRIG 150-199 mg/dL Borderline highTRIG 200-500 mg/dL High TRIG greater than 500 mg/dL Very highStandard traceable to the Center for Disease Conrtrol and Prevention (CDC) test method. Urea nitrogen [Mass/volume] in Serum or PlasmaOrdered By: Chad Wren on 03-29-2023 Urea nitrogen [Mass/Vol] 13 mg/dL 7-25 [facility] WBC Auto (Bld) [#/Vol]Ordere d By: Chad Wren on 03-29-2023 WBC (Bld) [#/Vol] 5.4 10*3/uL 4.1-10.5 [facility] Bilirubin Test strip Ql (U)O rdered By: Garrett Dominguez on 03-28-2023 Bilirubin Ql (U) Negative Negative [facility] Color Auto (U)Ordered By: Sukh Dominguez on 03-28-2023 Color (U) Yellow Yellow [facility] Ketones Auto test strip (U) [Mass/Vol]Ordered By: Garrett Dominguez on 03-28-2023 Ketones (U) [Mass/Vol] Negative Negative [facility] Nitrite Test strip Ql (U)Ord ered By: Garrett Dominguez on 03-28-2023 Nitrite Ql (U) Negative Negative [facility] Protein Auto test strip (U) [Mass/Vol]Ordered By: Garrett Dominguez on 03-28-2023 Protein (U) [Mass/Vol] Negative Negative [facility] Specific gravity Auto test s trip (U) [Rel density]Ordered By: Garrett Dominguez on 03-28-2023 Specific gravity (U) [Rel density] 1.005 1.001-1.030 [facility] Urinalysison 03-28-2023 Appearance (U) Clear Normal Clear [facility] Comment on above: Order Comment: Name Collection Type:: Collection Method Unknown Performed By: #### U A #### [address] Bilirubin,Urine Negative Normal Negative [facility] Comment on above: Order Comment: Name Collection Type:: Collection Method Unknown Performed By: #### U A #### [address] Color (U) Yellow Normal Yellow [facility] Comment on above: Order Comment: Name Collection Type:: Collection Method Unknown Performed By: #### U A #### [address] Glucose Ql (U) Normal Normal Normal [facility] Comment on above: Order Comment: Name Collection Type:: Collection Method Unknown Performed By: #### U A #### [address] Ketones Ql (U) Negative Normal Negative [facility] Comment on above: Order Comment: Name Collection Type:: Collection Method Unknown Performed By: #### U A #### [address] Leukocyte esterase Test strip Ql (U) Negative Normal Negative [facility] Comment on above: Order Comment: Name Collection Type:: Collection Method Unknown Performed By: #### U A #### [place] [address] [place] Nitrite,Urine Negative Normal Negative [facility] Comment on above: Order Comment: Name Collection Type:: Collection Method Unknown Performed By: #### U A #### [address] Occult Blood,Urine Negative Normal Negative [facility] Comment on above: Order Comment: Name Collection Type:: Collection Method Unknown Result Comment: PERF ORMED BY: [address] [place] [address] PATHOLOGIST [employer] MARIO ALBERTO AGUIAR M.D. Performed By: #### U A #### [facility] [address] [place] [address] [place] pH (U) 7.0 [pH] Normal 5.0-9.0 [facility] Comment on above: Order Comment: Name Collection Type:: Collection Method Unknown Performed By: #### U A #### [facility] [address] [place] [address] [place] Protein,Urine Negative Normal Negative [facility] Comment on above: Order Comment: Name Collection Type:: Collection Method Unknown Performed By: #### U A #### [facility] [address] Specificy [place],Urine 1.005 Normal 1.001-1.030 [facility] Comment on above: Order Comment: Name Collection Type:: Collection Method Unknown Performed By: #### U A #### [facility] [address] Urobilinogen,Urine Normal Normal Normal [facility] Comment on above: Order Comment: Name Collection Type:: Collection Method Unknown Performed By: #### U A #### [facility] [address] Urine clarity by refractomet ry automatedOrdered By: Garrett Dominguez on 03-28-2023 Clarity Refractometry automated (U) Clear Clear [facility] Urine glucose measurement by automated test strip (mass/volume)Ordered By: Garrett Dominguez on 03-28-2023 Glucose Auto test strip (U) [Mass/Vol] Normal mg/dL Normal [facility] Urine hemoglobin detection b y automated test stripOrdered By: Garrett Dominguez on 03-28-2023 Hemoglobin Auto test strip Ql (U) Negative Negative [facility] Urine leukocyte esterase det ection by automated test stripOrdered By: Garrett Dominguez on 03-28-2023 Leukocyte esterase Auto test strip Ql (U) Negative Negative [facility] Urobilinogen Auto test strip (U) [Mass/Vol]Ordered By: Garrett Dominguez on 03-28-2023 Urobilinogen (U) [Mass/Vol] Normal mg/dL Normal [facility] XR chest 2V*on 03-28-2023 XR chest 2V* [facility] [place] [address] XRay Report Signed Patient: Bhavesh Kwong MR#: [id number] : 2000 Acct:[id number] Age/Sex: 22 / M ADM Date: 03/28/23 Loc: [place] Room: Type: [facility] REF Attending Dr: Garrett Dominguez Jr, DO Copies to: Garrett Dominguez DO Ordering Provider: Garrett Dominguez DO Date of Service: 03/28/23 XR/XR chest 2V*: employment physical PA AND LATERAL CHEST: CLINICAL HISTORY: Employment physical COMPARISON: None There is no focal parenchymal consolidation, effusion or pneumothorax. The cardiac, hilar and mediastinal silhouettes are within normal limits. There is no vascular congestion. The visualized bony thorax is intact. XR/XR chest 2V* IMPRESSION: NO ACUTE CARDIOPULMONARY ABNORMALITY. Impression dictated by: Merry Richardson M.D.03/28/2023 3:27 PM Dictation Location: [facility]--12 Transcribed By: [facility] 03/28/23 152 Dictated By: Merry Richardson MD 03/28/231526 Signed By: 03/28/23 1527 [facility] pH Auto test strip (U)Ordere d By: Garrett Dominguez on 03-28-2023 pH (U) 7.0 [pH] 5.0-9.0 [facility] Lab - Toxicology Resultson 0 03-27-2023 Lab - Toxicology Results [id number]#1.0 [facility]2023 Miscellaneous [id number] #1.00[facility] Consultation Noteon 01-28-20 Consultation Note [id number] .00TIFF [facility] Progress Noteon 01-26-2023 Audiology Technician Authentication Interface Message Text Subjective: Patient ID: Bhavesh Kwong is a 22 y.o. male - diagnosis IBD (more consistent with UC; 05/06/15) ---History from patient ---Patient last seen 05/10/22 ---Telemedicine Video Visit done today This is not a consultation. He is unaccompanied. No lithograph printer was used. Bhavesh is a 22 y.o. male with ulcerative colitis. Colectomy status: has not had a complete colectomy Past Surgical History Past Surgical History: Procedure Laterality Date ESOPHAGOSCOPY N/A 05/06/2015 ENDOSCOPY (UPPER AND COLONOSCOPY) with biopsies performed by Josi Mariano MD at [facility] OR ESOPHAGOSCOPY N/A 02/07/2016 ENDOSCOPY (UPPER AND COLONOSCOPY) with biopsies performed by Josi Mariano MD at [facility] OR Extent of disease involvement The extent of ulcerative colitis involvement: pancolitis There has not been an episode of severe disease Current symptoms (on the worst day in past 7 days) He reports on the worst day his general well-being is normal. Limitations in daily activities were described as: no limitations. Abdominal pain: none. Stool number on the worst day in past 7 days: 3 . The number of liquid/watery stools per day was 0 . Most of the stools were described as formed. Nocturnal diarrhea: no . He reported no bloody stools . . Extraintestinal manifestations: Fever greater than 38.5C for 3 of last 7 days: no Definite arthritis: no Uveitis: no Erythema nodosum: no Pyoderma gangrenosum: no Current meds/therapies: Current Outpatient Medications: inFLIXimab-dyyb (INFLECTRA) 100 MG SOLR injection, 400mg IV Infusion every 8 weeks, Disp: 4 Each, Rfl: 5 Objective: There were no vitals taken for this visit. Based on current information, my global assessment of current disease status is his disease is quiescent. Bhavesh s growth status is satisfactory. The overall nutritional status is satisfactory. His primary survey compiler will be Josi Mariano MD Remicade: Started 06/01/15 (200mg); increased 09/07/15 to 300mg due to weight gain ---Last - 01/03/23; Now Getting at [facility]; Inflectra ---Next - q8 weeks - 400mg MTX: had stopped - non compliant and did not want to take ---but had been on >1 year previously (with Remicade) ABD pain - No issues Stooling - Doing well ---2-3x per day ---No diarrhea ---No blood ---No waking to stool UO - Doing well N/V - No issues Appetite - Doing well ---eating very well and larger amounts Growth - No weight loss, per patient Activity - Doing well ---Work - Patient has no restrictions; about to finish at [employer] Fevers - No issues Rashes - No issues Joints - No pain or swelling Mouth - No sores Eyes - No pain or swelling Currently: 12/26 (10 = well) ---Last seen = 12/26 (10 = good) Review of Systems Constitutional: Positive for weight gain. Negative for recurrent fevers, weight loss and malaise/fatigue. HENT: Negative for trouble swallowing. Eyes: Positive for wears glasses. Respiratory: Negative for coughing, wheezing and asthma. Cardiovascular: Negative for heart murmur and chest pain. Endocrine: Negative for poor growth (Previously - now resolved). Gastrointestinal: Negative for constipation, soiling underpants, diarrhea, vomiting, heartburn, blood in stool, trouble swallowing, abdominal pain, nausea and liver problems. Hx of UC Genitourinary: Negative for dysuria, hematuria and frequent urination. Neurological: Negative for developmental delays and seizures. Skin: Negative for rash. Allergy/Immune: Positive for immune problems (Immunosuppressed - on Inflectra). Negative for allergies. Hematology: Negative for no easy bleeding, no anemia (+Previously, but now resolved) and no blood transfusions. The patient's past medical, surgical history, family history, and medications were reviewed and updated in EPIC (electronic medical record). There were no vitals filed for this visit. Objective: Physical Exam Constitutional: General: He is active. Appearance: He is well-developed and well-nourished. He is not thin. Eyes: Conjunctiva/sclera: Conjunctivae normal. Pulmonary: Effort: Pulmonary effort is normal. Musculoskeletal: Cervical back: Normal range of motion. Neurological: Mental Status: He is alert. Skin: Coloration: Skin is not pale. Assessment: Bhavesh is a 22yo white male with previous issues of Change in stools - blood in stool; nocturnal BM's, Fever, Decreased appetite with weight loss (7lbs) with also signs of ESR 40, CRP 7.8, Hemoccult + (C diff Negative); with CT of ABD showing diffuse Colitis (on report - CD has been scanned in - reviewed in radiology - no small bowel pathology). ---Patient was admitted after seen on 05/05/15 - EGD/Colonoscopy on 05/06/15 - Visually showed a patchy gastritis with a pancolitis sparing the cecum (but had inflammaiton around appendiceal orrifice as well as ICV; TI was (more content not included)... Normal [facility] CBC AUTO DIFFon 06-07-2022 BASO # 0.0 103/ul Normal 0.0-0.1 [facility] Comment on above: Performed By: #### C RP, LIVER, BMP #### [facility] [address] [address] [address] Raymundo Rodriguez Basophils/100 WBC (Bld) 0.4 % Normal 0.2-2.0 [facility] Comment on above: Performed By: #### C RP, LIVER, BMP #### [facility] [address] [address] [address] Raymundo Rodriguez EO # 0.1 103/ul Normal 0.0-0.7 [facility] Comment on above: Performed By: #### C RP, LIVER, BMP #### [facility] [address] [address] [address] Raymundo Rodriguez Eosinophils/100 WBC (Bld) 1.4 % Normal 0.9-7.0 [facility] Comment on above: Performed By: #### C RP, LIVER, BMP #### [facility] [address] [address] [address] Raymundo Rodriguez Erythrocyte distribution width (RBC) [Ratio] 12.1 % Normal 11.0-15.0 [facility] Comment on above: Performed By: #### C RP, LIVER, BMP #### [facility] [address] [place] [address] Dr. Raymundo Rodriguez Hematocrit (Bld) [Volume fraction] 46.2 % Normal 42.0-54.0 [facility] Comment on above: Performed By: #### C RP, LIVER, BMP #### [facility] [address] [place] [address] Dr. Raymundo Rodriguez Hemoglobin (Bld) [Mass/Vol] 15.6 g/dL Normal 14.0-18.0 [facility] Comment on above: Performed By: #### C RP, LIVER, BMP #### [facility] [address] [place] [address] Dr. Raymnudo Rodriguez IG # 0.01 10e3/ul Normal 0.00-0.03 [facility] Comment on above: Performed By: #### C RP, LIVER, BMP #### [facility] [address] [place] [address] Dr. Raymundo Rodriguez IG % 0.2 % Normal 0.0-0.5 [facility] Comment on above: Performed By: #### C RP, LIVER, BMP #### [facility] [address] [place] [address] Dr. Raymundo Rodriguez LYMPH # 1.0 103/ul Critically low 1.2-3.8 [facility] Comment on above: Performed By: #### C RP, LIVER, BMP #### [facility] [address] [place] [address] Dr. Raymundo Rodriguez Lymphocytes/100 WBC (Bld) 17.4 % Critically low 20.5-60.0 [facility] Comment on above: Performed By: #### C RP, LIVER, BMP #### [facility] [address] [place] [address] Dr. Raymundo Rodriguez MANUAL DIFF REQ NO Normal [facility] Comment on above: Performed By: #### C RP, LIVER, BMP #### [facility] [address] [place] [address] Dr. Raymundo Rodriguez MCH (RBC) [Entitic mass] 30.2 pg Normal 25.9-34.0 [facility] Comment on above: Performed By: #### C RP, LIVER, BMP #### [facility] [address] [place] [address] Dr. Raymundo Rodriguez MCHC (RBC) [Mass/Vol] 33.8 g/dL Normal 29.9-35.2 [facility] Comment on above: Performed By: #### C RP, LIVER, BMP #### [facility] [address] [place] [address] Dr. Raymundo Rodriguez MCV (RBC) [Entitic vol] 89.5 fL Normal 80.0-94.0 [facility] Comment on above: Performed By: #### C RP, LIVER, BMP #### [facility] [address] [place] [address] Dr. Raymundo Rodriguez MONO # 0.5 103/ul Normal 0.3-0.8 [facility] Comment on above: Performed By: #### C RP, LIVER, BMP #### [facility] [address] [place] [address] Dr. Raymundo Rodriguez Monocytes/100 WBC (Bld) 8.8 % Normal 1.7-12.0 [facility] Comment on above: Performed By: #### C RP, LIVER, BMP #### [facility] [address] [place] [address] Dr. Raymundo Rodriguez NEUT # 4.0 103/ul Normal 1.4-6.5 [facility] Comment on above: Performed By: #### C RP, LIVER, BMP #### [facility] [address] [place] [address] Dr. Raymundo Rodriguez Neutrophils/100 WBC (Bld) 71.8 % Normal 43.0-75.0 [facility] Comment on above: Performed By: #### C RP, LIVER, BMP #### [facility] [address] [place] [address] Dr. Raymundo Rodriguez Platelet mean volume (Bld) [Entitic vol] 11.2 fL Normal 9.5-13.5 [facility] Comment on above: Performed By: #### C RP, LIVER, BMP #### [facility] [address] [place] [address] Dr. Raymundo Rodriguez PLT 214 103/ul Normal 150-450 [facility] Comment on above: Performed By: #### C RP, LIVER, BMP #### [facility] [address] [place] [address] Dr. Raymundo Rodriguez RBC 5.16 106/ul Normal 4.70-6.10 [facility] Comment on above: Performed By: #### C RP, LIVER, BMP #### [facility] [address] [place] [address] Dr. Raymundo Rodriguez WBC 5.6 103/ul Normal 4.0-11.0 [facility] Comment on above: Performed By: #### C RP, LIVER, BMP #### [facility] [address] [place] [address] Dr. Raymundo Rodriguez CRPon 06-07-2022 CRP [Mass/Vol] mg/L Normal <=1.0 [facility] Comment on above: Performed By: #### C RP, LIVER, BMP #### [facility] [address] [place] [address] Dr. Raymundo Rodriguez LIVER PROFILEon 06-07-2022 Albumin [Mass/Vol] 3.8 g/dL Normal 3.4-5.0 [facility] Comment on above: Performed By: #### C RP, LIVER, BMP #### [facility] [address] [place] [address] Dr. Raymundo Rodrgiuez Albumin/Globulin [Mass ratio] 1.0 {ratio} Normal [facility] Comment on above: Performed By: #### C RP, LIVER, BMP #### [facility] [address] [place] [address] Dr. Raymundo Rodriguez ALP [Catalytic activity/Vol] 83 U/L Normal 46-116 [facility] Comment on above: Performed By: #### C RP, LIVER, BMP #### [facility] [address] [place] [address] Dr. Raymundo Rodriguez ALT [Catalytic activity/Vol] 32 U/L Normal 16-63 [facility] Comment on above: Performed By: #### C RP, LIVER, BMP #### [facility] [address] [place] [address] Dr. Raymundo Rodriguez AST [Catalytic activity/Vol] 21 U/L Normal 15-37 [facility] Comment on above: Performed By: #### C RP, LIVER, BMP #### [facility] [address] [place] [address] Dr. Raymundo Rodriguez BILI, CONJUGATED 0.1 mg/dL Normal 0.0-0.[address] [facility] Comment on above: Performed By: #### C RP, LIVER, BMP #### [facility] [address] [place] [address] Dr. Raymundo Rodriguez Bilirubin [Mass/Vol] 0.7 mg/dL Normal 0.2-1.0 [facility] Comment on above: Performed By: #### C RP, LIVER, BMP #### [facility] [address] [place] [address] Dr. Raymundo Rodriguez Globulin (S) [Mass/Vol] 3.9 g/dL Normal T [facility] Comment on above: Performed By: #### C RP, LIVER, BMP #### [facility] [address] [place] [address] Dr. Raymundo Rodriguez Protein [Mass/Vol] 7.7 g/dL Normal 6.4-8.2 [facility] Comment on above: Performed By: #### C RP, LIVER, BMP #### [facility] [address] [place] [address] Dr. Raymundo Rodriguez PROF CHEM 8 (BAS METB)on Anion gap [Moles/Vol] 10.8 mmol/L Normal [facility] Comment on above: Performed By: #### C RP, LIVER, BMP #### [facility] [address] [place] [address] Dr. Raymundo Rodriguez Calcium [Mass/Vol] 9.1 mg/dL Normal 8.5-10.1 [facility] Comment on above: Performed By: #### C RP, LIVER, BMP #### [facility] [address] [place] [address] Dr. Raymundo Rodriguez Chloride [Moles/Vol] 103 mmol/L Normal 98-107 [facility] Comment on above: Performed By: #### C RP, LIVER, BMP #### [facility] [address] [address] [address] Raymundo Rodriguez CO2 [Moles/Vol] 32.1 mmol/L Critically high 21.0-32.0 [facility] Comment on above: Performed By: #### C RP, LIVER, BMP #### [facility] [address] [place] [address] Dr. Raymundo Rodriguez Creatinine [Mass/Vol] 1.10 mg/dL Normal 0.70-1.30 [facility] Comment on above: Performed By: #### C RP, LIVER, BMP #### [facility] [address] [place] [address] Dr. Raymundo Rodriguez EGFR-AF ZIMBABWEAN >60 Normal >=[address] [facility] Comment on above: Performed By: #### C RP, LIVER, BMP #### [facility] [address] [place] [address] Dr. Raymundo Rodriguez EGFR-NON AF ZIMBABWEAN >60 Normal >=60 [facility] Comment on above: Performed By: #### C RP, LIVER, BMP #### [facility] [address] [place] [address] Dr. Raymundo Rodriguez Glucose [Mass/Vol] 116 mg/dL Critically high 74-106 [facility] Comment on above: Performed By: #### C RP, LIVER, BMP #### [facility] [address] [place] [address] Dr. Raymundo Rodriguez Potassium [Moles/Vol] 3.9 mmol/L Normal 3.5-5.1 [facility] Comment on above: Performed By: #### C RP, LIVER, BMP #### [facility] [address] [place] [address] Dr. Raymundo Rodriguez Sodium [Moles/Vol] 142 mmol/L Normal 136-145 [facility] Comment on above: Performed By: #### C RP, LIVER, BMP #### [facility] [address] [place] [address] Dr. Raymundo Rodriguez Urea nitrogen [Mass/Vol] 14.0 mg/dL Normal 7.0-18.0 [facility] Comment on above: Performed By: #### C RP, LIVER, BMP #### [facility] [id number] Raymundo Rodriguez Urea nitrogen/Creatinine [Mass ratio] 12.7 mg/mg Normal [facility] Comment on above: Performed By: #### C RP, LIVER, BMP #### [facility] [address] [address] [address] Raymundo [facility] mm/hr Normal <=15 [facility] Comment on above: Performed By: #### C RP, LIVER, BMP #### [facility] [address] [address] [address] Raymundo Rodriguez Consultation Noteon 05-24-19 Consultation Note [id number] .[id number]:127 Normal [facility] Coding Summaryon 05-15-2022 Coding Summary HTMLBase 64 AeleiikkGVv6gCz+PGhlY WQ+DC8KJPGhE29hiCCjlZ 5TD7tGWI2XPLVDHGYADQ4 RLE3xjOI3RWsxK4DwwfHb SowxdZVbCF84ALz1DSN5s KatWNabkL7atLHtX6t9Zv XwLU86zU20DLaxQKRzRiQ 3LjZpbjsgbWFy Y2pnPfKogTCiYia+PHRhY mxlIHdpZHRoPScxMDAlJy EdhZkwMC2yFu6kBKOuBMS vbGxhcHNlOiBj b2kaHSIcVSzoLD8hmIhdS 1JzlVK3XIFrk7r6Rd23qL I+OMUtIPH7xIcbNIigl47 2MyGay2zbHUE5 hBHaFHexESS5W17hq7Q1X WJvEKYiRWT9bLC1sI9bmV dfolbhK9DrfVGgDpD4IXW 3gTLcyN9saYfq bxkbcH2uKhr+V62BAY4IK VNMNG4ZIgc6Y1NzVhtvlJ I+UB80NUXlYS04mSTtkJQ an1yrmQb2IvXq DGMyJHS9nAmiCUnns0SqT QScI53arBEch6E4EAWmkX pujRRhJvMrmUS6rH2aSHj isbsfq9cacflr Zblce6ivbk54oK36D55xN BihTPLoKQM9TBKjJSKopM kywz7ovE8oUk4+VCwjk1l vn5saiYt6AbKd RGVzodUruRxjSDO0h4NkG v20Z4KbwUnhw0PrKoa6li 42bYGlz6E1wZZ3WCrmUIV diY3tMGoiBdN0 ZBEzHtWfmP17eBLkFZnyJ f5xoGbcsDfoYE6tPBIfuw svCDNtdP4qYGVaqAKsfDo iPB1xSSPuexpu i093QhXnDGD1UZOkmOGgN 4McmK0mGyTsLPUmBAAtI9 AatDWkWXjzX452ODjlWmM 9KCXxcgGyP8We OLYegUtcEyA0j0O5Kx6Rz 9AkowsbHKT3EVifSSQlLz D8VpKsWtX7Z3QlHsu2JGR ymYmdWK2jM2Vt WTPhjmtryrkrxRS6USYgQ DLtxO50kVYrROoqLb7nc1 T6g144DHAqJXHodH78Bd6 udDogMTBwdCBU mH1rpecxc0jxknmpYwQgS JUkPFf5FJc6TYFzdUzuQm AoXCH0ZqY9WQI4rSIzbV6 ldAsuhkcbgF2z Oyc+G36qmE8xREJ2MHW6l ohcQHIrimByQF57ZS41Q5 RyPjwvdGFibGU+PGRpdiB unTkgJG6oJnBq w1sgj4OlHTbqR7VzDXRmY IjsHej8ADOwFBG3aBZ6jY 2kOFNlQEgnm7Z4cUY1W9C lqzQywy1at8dn OYGbPJouT82cuYWhl8Z6N FRknBL9PRMxjNcrTtSwdN 93Oyc+ZGRrhQult4RqEuq cf1cql4awcHz4 CyGmLBFyxbStwOvpDZV6r 0SqOx34S75qALnkBOSqZX TpKVQeJFXxqIfcro0qyS3 wIi8+PGNvbCB3 nNS0gE9yYSCaGwG7YSfeN 594TmSprEDbJkcmy8rcu1 kcbMg2ZmArVCPbgfIywGx iMPO1i4RtGs86 T65mMWfhAYFlVLDqSLEbA DMpuBpvvc2zaN8uLt7+PC 6gt8dfyf05vL86cVO+PHR uMGU4gNueKGnq RESjuR8jBBfoAaB9YZTpN gIjtT83sBVnPXhkTc3pkJ txlZwuCU0xWKDkwumrf68 9MmDwi6cqXPBy pZCkHSygCPG2Y15ud2X4H WGhUGQaMCB7mLH8rT4yyS lnbjogbGVmdDsgdmVydGl sJWovITtmC030 IHRvcDsnPlBhdGllbnQgT eEpRZt0J3GcPpo0CYHzdA fyDR5swDQeMAzhRk0fdDz rrZadGX6nYXDi xscfl517DjVyl9fuTHLyj GBdXRxkIUY1Q28jb2Y1KJ JeWEZuZDP0kKH9lH9iyYi nbjogbGVmdDsg ruYgrIsrNWmrRLccF757F HRvcDsnPkJpcnRoIERhdG Z4ZO60QG62tRPix5W4yHY 4R8NlBVOlumje oanibVJ0ZIPuGJLawS54O x4hbVyhWf9hBIAfESG0ER RvfVOdG9TvxR0fEgNiUBT cEMDxP6CplHCy JBznI265WTnaKiS3TTMaz rUzD5FbFRZxvAasHtQ8a0 N4Oe7CP9N2DB50FZ18jIE ka2C9tCM4D0Tg PHTfqdpexybuqOG3FBBwG ZRhuW22Ls2ajFidEj2qVA ScLBU3CLYoqCYdE7DmqV8 yOiAjMDAwMDAw P9WirVUjBGgjK255PIxwI aJ7MGWfrwKtW6DiVRCneZ gfEdP1w9E0Kj1CEQd9FG0 0IA86nSJqx2K8 eNS8I9LbMVAjicuezczwn PI2QDZoNQGezW19Bk0dsJ kbBd5rACLjJOI7TQJpwCE eS2NdkE3yVtOc FRYeGKZiA6XbvMIaJCxlK 764IUuoAfR7ZBSqvmHkB5 UjYCFyhLroVwT4g0D7Lb0 KTASaPM67BVH5 vHK8CD50MM15J7CyPkdgh GFibGU+PHRhYmxlIHdpZH RoPScxMDAlJyBzdHlsZT0 oYa7zPPYvGLAk wTbwjWZtQcJft4onLAIyN WxiBU6qrHuzU9ZebGZ0XP Gbc7m0Mk40X39hM7ElmOI +PRMkcDT1kVW8 mY2tOcFuSgH9KTwaT931A pLimTDlThdnt3zlf7jrbL q2FmR5WERaslDwmMnhDFF 6l5WsFx96Q22c IHdpZHRoPSIxNSUiIHZhb Obrua7gcI4iVh2+PGNvbC Y8gJF8vT9vLaXcQlQ2MUe zO543CcWtnWBo Klhyt2lio8fktFr2GeMrK SQrkoKawCkhCVZ4a8FhQs 54W4XfnPobp4HdHdy0ks6 4hPNtj4J0lTR6 B4SeGNPzssmkpACyiPegJ Y6dEPCwqjakSVMrlT1tNC EnY3o9ToEuXwT5EPrbA3Y haqB9SLGynXLc UTjkHEY8N02vt6Q3LIEjD NMgMHJ1vIQ3gM1etRojhi ogbGVmdDsgdmVydGljYWw zQExsS157MFKb hFgjVLIgsQ6xWWMmxRBtx UkdQJ3sOUBydnwpAjDMGK dBQiwgQlJBWURFTiBTVEF LVMFPWE59TG71 dSVlt8C3nLZ2Q9LrNJFsg yffshfvySF8ORCwUPUxhN 65oNRyLSflHx5dl2A6f91 8ZNJdIEMjkA63 Jo1vvBtvXEAdvHGKcI4ir jzzf3npczoxAjJfBODmTB z6RUa1PDWxxVndAjAmKVR 0VaP5PWD0tOVw gO0orDvoavsakE9vKov+M DEvMTcvMjAwMzwvdGQ+PH IkCEU3bBsyIUwiCEYtcA3 jMGZaN2z7XxXc RdL9QAlnH9KfBURsljetJ o75rJ1tOqKfRtH7YWggO0 XcjbM5EMTjfMDnOIiaVCP 6J32th9L7JDJo AASmUPR6gLK3mW2aeJycj jogbGVmdDsgdmVydGljYW ygLGutM184EYResOdnHrE vJGudDUWxNQ15 FE27aGJtj0D5nMF4O1FwF CGryzygvqsewMB3ZYCbMY QdkT43pDZzNMkzIi0of4V 7a883LKGeAYZx rZ81Zi4taVpnOJAbiKOUs A4nhtrza5fnxwemHjLeTU UpTNi0VBy6UVZrpRgoOuT aAIY4WdA5YSZ0 jNJodS9ggHkcummxeA9yL yc+TUFMRTwvdGQ+PHRkIH F9mAwrWIkiFCJtqU0fYJD xV1i7AuRmUeX2 TLopA0EwPSSgmsvyOg64k H2gNoOqBmB2FDjyQ4Boez N4MLTxfUAmLGbaKWL7U00 fb5K5ONWkZFJa GVA7xMU0lX5grIidvxaqw GVmdDsgdmVydGljYWwtYW piU891TOYeeNoxRt0IVF5 5AI39N7BcOiay dGFibGU+PHRhYmxlIHdpZ HRoPScxMDAlJyBzdHlsZT 7pRh5tAIXnKUJskJnqkQD dNbBov2chUDIf IAygJZ4hkUtjE7ZezFO5C ZQys5x8Kd60P37zA3HzwI A+CKXhmHD6uJJ8oI9yAjT kSkS3NHrzV080 EnZjqAGaYcajx3nfu0guk Rt3QxPrQYHzbfFtoHipSK V7d1JmUo42M14qZUxzWEM oPSIyMCUiIHZh rPujsb6caL9uUv7+PGNvb OU4wXS8mN0vXpCvBgL0VM loC304UgFofAEyTadeP32 hZ5YzcGZ+PHRy Xie4BEGteUbgBC5miEYwC KyvPr2oNQY1IdXqVoZnST xkS9SuZIDwywkazahqdYI 7FQXzWHQlnX30 Kj1ykFeeNg8wHNYbZBE4M TPmrAGsT7HxoZ7wYrCoKI DfDQRqF3HijUPtKIdiR77 0LNnaGtF9WIEh tzNuC9VfFURkfWhcZnV0f 7Z7Iz1CxGtjbAQlQM6qWi FtBBh8B0YtLrs1EGOefOc dDU2thGLnQBzs Iv2rkYavrAznPE0hWOTyf ptag855CdGpk5hdJLWrjQ UbAZozENP3H42ma5N1QSX bVFGvLJD6uOE3 eX8puPtaszumjYVqqLggd yGsiGftWWmsGCkxM946CS AlwAvkQaWNAao9V3UfFfj 8BKFdqGfgZR6j qTGfSGvaFo8tuObtoRthQ W3nEEYsxqgtd751UbMcg8 mzEDEcqLXoWTbaINL9R32 hg9V3GCIzOIFz NUL1vYW8tS1dxNsybmspu GVmdDsgdmVydGljYWwtYW mzP617YQFozVpqQc5DKqh 5M7ToUok8GGPh mMbhVX7htWMuFFtlOb5cb MzojFkfXS3uGGAoobqjv5 62EeJbt4zkJOLiqXRjMBv aEUR6H19vg2N0 XWPeEEWcKAB3uUC0wL2xk GlnbjogbGVmdDsgdmVydG jeCUreTAgbO513KYKwaBw nPlBheWVyOjwv dGQ+LP69gt46W4OrVlqvG ta4NWGsYFW3iEK2lM2wTX CnUAcih4V0xXH9X3UkstX [id number] ZTo (more content not included)... Normal [facility] ED Clinical Summaryon 2022 ED Clinical Summary [facility] ? Urgent Care [address] [place] [address] Clinical Summary PERSON INFORMATION Name: BHAVESH KWONG Age: 22 Years Sex: MALE : 2000 MRN: Acct#: Visit Reason: UC - Ear Problem; LEFT EAR PROBLEM Arrival: 05/12/2022 10:40:34 Discharge: 05/12/2022 12:08:00 LOS: 000 01:28 Check In: 05/12/2022 10:40:34 Checkout: 05/12/2022 12:08:00 Address: [address] [place] [id number] PCP: Provider, None PROVIDER INFORMATION Provider Role Assigned Unassigned Virginia Llanes PA-C, ED 05/12/2022 10:45:10 Mandeep RN, Sindy Perkins ED Nurse 05/12/2022 10:57:29 VITALS INFORMATION Vital Sign Triage Latest Temperature Tympanic Temperature Temporal Artery Pulse Rate O2 Sat 97 % 97 % Respiratory Rate Blood Pressure /73 mmHg /73 mmHg MEDICAL INFORMATION Medications Given: Allergy Information: No Known Medication Allergies PHYSICIAN DOCUMENTATION Patient: BHAVESH KWONG Age: 22 years Sex: MALE : 2000 Associated Diagnoses: Impacted cerumen of both ears Author: Virginia Llanes PA-C Basic Information Time seen: Date & time 05/12/2022 11:02:00. History source: Patient. Arrival mode: Private vehicle. History limitation: None. History of Present Illness 22-year-old male presents with left ear discomfort for the past 4 days. Denies fever or upper respiratory symptoms. Review of Systems Additional review of systems information: All other systems reviewed and otherwise negative. Health Status Allergies: No active allergies have been recorded.. Past Medical/ Family/ Social History Medical history: No active or resolved past medical history items have been selected or recorded.. Surgical history: No active procedure history items have been selected or recorded.. Family history: No family history items have been selected or recorded.. Social history: Social & Psychosocial Habits No Data Available . Problem list: No qualifying data available . Physical Examination Vital Signs Vital Signs 05/12/2022 10:52 EST Temperature Oral 37 DegC Peripheral Pulse Rate 87 bpm Respiratory Rate 14 br/min Systolic Blood Pressure 134 mmHg Diastolic Blood Pressure 73 mmHg SpO2 97 % Oxygen Therapy Room air BP Method Automatic . General: Alert, no acute distress. Skin: Warm, dry, intact. Head: Normocephalic, atraumatic. Neck: Supple, trachea midline. Eye: Extraocular movements are intact. Ears, nose, mouth and throat: Oral mucosa moist, Bilateral cerumen impaction. Cardiovascular Respiratory: Respirations are non-labored, Symmetrical chest wall expansion. Musculoskeletal: Normal ROM. Neurological: Alert and oriented to person, place, time, and situation, normal speech observed. Psychiatric: Cooperative, appropriate mood & affect. Medical Decision Making Rationale: Bilateral ear irrigation for cerumen impaction. He did require me to personally use a curette in his right ear. Successful irrigation and he can follow-up with family doctor. Afebrile, not tachycardic, tolerating PO and ambulating at baseline and hemodynamically stable at time of discharge. educated on when to return to ER. if any new or worsening sx, needs rechecked. answered all questions. pt in agreement with tx.. Orders Launch Orders Patient Care: Ear Lavage (Order): 05/12/2022 11:03 EST, b/l. Impression and Plan Diagnosis Impacted cerumen of both ears ([id number] H61.23, Discharge, Medical) Plan Condition: Stable. Disposition: Discharged: Time 05/12/2022 12:04:00, to home. Patient was given the following educational materials: Earwax Buildup, Adult, Earwax Buildup, Adult. Follow up with: ; Follow up with primary care provider Within 2 to 4 days Return if symptoms worsen Call for follow up appointment. Counseled: Patient, Regarding diagnosis, Regarding treatment plan, Patient indicated understanding of instructions. DISCHARGE INFORMATION: Discharge Disposition: Home Discharge Location: Home PATIENT EDUCATION INFORMATION Instructions: Earwax Buildup, Adult Follow-Up: With: Address: When: Follow up with primary care provider Within 2 to 4 days Comments: Return if symptoms worsen Call for follow up appointment DIAGNOSIS: Impacted cerumen of both ears Patient Understands: Yes - Patient/family/caregi bhakti verbalizes understanding of instructions given Comment: [facility] ED Note - Provideron 023 ED Note - Provider Patient: BHAVESH KWONG Age: 22 years Sex: MALE : 2000 Associated Diagnoses: Impacted cerumen of both ears Author: Virginia Llanes PA-C Basic Information Time seen: Date & time 05/12/2022 11:02:00. History source: Patient. Arrival mode: Private vehicle. History limitation: None. History of Present Illness 22-year-old male presents with left ear discomfort for the past 4 days. Denies fever or upper respiratory symptoms. Review of Systems Additional review of systems information: All other systems reviewed and otherwise negative. Health Status Allergies: No active allergies have been recorded.. Past Medical/ Family/ Social History Medical history: No active or resolved past medical history items have been selected or recorded.. Surgical history: No active procedure history items have been selected or recorded.. Family history: No family history items have been selected or recorded.. Social history: Social & Psychosocial Habits No Data Available . Problem list: No qualifying data available . Physical Examination Vital Signs Vital Signs 05/12/2022 10:52 EST Temperature Oral 37 DegC Peripheral Pulse Rate 87 bpm Respiratory Rate 14 br/min Systolic Blood Pressure 134 mmHg Diastolic Blood Pressure 73 mmHg SpO2 97 % Oxygen Therapy Room air BP Method Automatic . General: Alert, no acute distress. Skin: Warm, dry, intact. Head: Normocephalic, atraumatic. Neck: Supple, trachea midline. Eye: Extraocular movements are intact. Ears, nose, mouth and throat: Oral mucosa moist, Bilateral cerumen impaction. Cardiovascular Respiratory: Respirations are non-labored, Symmetrical chest wall expansion. Musculoskeletal: Normal ROM. Neurological: Alert and oriented to person, place, time, and situation, normal speech observed. Psychiatric: Cooperative, appropriate mood & affect. Medical Decision Making Rationale: Bilateral ear irrigation for cerumen impaction. He did require me to personally use a curette in his right ear. Successful irrigation and he can follow-up with family doctor. Afebrile, not tachycardic, tolerating PO and ambulating at baseline and hemodynamically stable at time of discharge. educated on when to return to ER. if any new or worsening sx, needs rechecked. answered all questions. pt in agreement with tx.. Orders Launch Orders Patient Care: Ear Lavage (Order): 05/12/2022 11:03 EST, b/l. Impression and Plan Diagnosis Impacted cerumen of both ears ([id number] H61.23, Discharge, Medical) Plan Condition: Stable. Disposition: Discharged: Time 05/12/2022 12:04:00, to home. Patient was given the following educational materials: Earwax Buildup, Adult, Earwax Buildup, Adult. Follow up with: ; Follow up with primary care provider Within 2 to 4 days Return if symptoms worsen Call for follow up appointment. Counseled: Patient, Regarding diagnosis, Regarding treatment plan, Patient indicated understanding of instructions. [Electronically Signed on: 05/12/2022 12:05 EST] Virginia Llanes PA-C [Verified on: 05/12/2022 12:05 EST] Virginia Llanes PA-C Normal [facility] ED Patient Summaryon 023 ED Patient Summary [facility] ? Urgent Care [address] [place] [id number] PATIENT DISCHARGE INSTRUCTIONS Patient Information Name: BHAVESH KWONG Age: 22 Years Date of : 2000 Reason For Visit: UC - Ear Problem; LEFT EAR PROBLEM Arrival Time: 05/12/2022 10:40:34 Primary Care Physician: Marino, Yael Attending Physician: Virginia Llanes PA-C Comment: Patient Education With: Address: When: Follow up with primary care provider Within 2 to 4 days Comments: Return if symptoms worsen Call for follow up appointment Earwax Buildup, Adult The ears produce a substance called earwax that helps keep bacteria out of the ear and protects the skin in the ear canal. Occasionally, earwax can build up in the ear and cause discomfort or hearing loss. What are the causes? This condition is caused by a buildup of earwax. Ear canals are self-cleaning. Ear wax is made in the outer part of the ear canal and generally falls out in small amounts over time. When the self-cleaning mechanism is not working, earwax builds up and can cause decreased hearing and discomfort. Attempting to clean ears with cotton swabs can push the earwax deep into the ear canal and cause decreased hearing and pain. What increases the risk? This condition is more likely to develop in people who: ? Clean their ears often with cotton swabs. ? Pick at their ears. ? Use earplugs or in-ear headphones often, or wear hearing aids. The following factors may also make you more likely to develop this condition: ? Being male. ? Being of older age. ? Naturally producing more earwax. ? Having narrow ear canals. ? Having earwax that is overly thick or sticky. ? Having excess hair in the ear canal. ? Having eczema. ? Being dehydrated. What are the signs or symptoms? Symptoms of this condition include: ? Reduced or muffled hearing. ? A feeling of fullness in the ear or feeling that the ear is plugged. ? Fluid coming from the ear. ? Ear pain or an itchy ear. ? Ringing in the ear. ? Coughing. ? Balance problems. ? An obvious piece of earwax that can be seen inside the ear canal. How is this diagnosed? This condition may be diagnosed based on: ? Your symptoms. ? Your medical history. ? An ear exam. During the exam, your health care provider will look into your ear with an instrument called an otoscope. You may have tests, including a hearing test. How is this treated? This condition may be treated by: ? Using ear drops to soften the earwax. ? Having the earwax removed by a health care provider. The health care provider may: ? Flush the ear with water. ? Use an instrument that has a loop on the end (curette). ? Use a suction device. ? Having surgery to remove the wax buildup. This may be done in severe cases. Follow these instructions at home: ? Take [id number] and prescription medicines only as told by your health care provider. ? Do not put any objects, including cotton swabs, into your ear. You can clean the opening of your ear canal with a washcloth or facial tissue. ? Follow instructions from your health care provider about cleaning your ears. Do not overclean your ears. ? Drink enough fluid to keep your urine pale yellow. This will help to thin the earwax. ? Keep all follow-up visits as told. If earwax builds up in your ears often or if you use hearing aids, consider seeing your health care provider for routine, preventive ear cleanings. Ask your health care provider how often you should schedule your cleanings. ? If you have hearing aids, clean them according to instructions from the manager of school and your health care provider. Contact a health care provider if: ? You have ear pain. ? You develop a fever. ? You have pus or other fluid coming from your ear. ? You have hearing loss. ? You have ringing in your ears that does not go away. ? You feel like the room is spinning (vertigo). ? Your symptoms do not improve with treatment. Get help right away if: ? You have bleeding from the affected ear. ? You have severe ear pain. Summary ? Earwax can build up in the ear and cause discomfort or hearing loss. ? The most common symptoms of this condition include reduced or muffled hearing, a feeling of fullness in the ear, or feeling that the ear is plugged. ? This condition may be diagnosed based on your symptoms, your medical history, and an ear exam. ? This condition may be treated by using ear drops to soften the earwax or by having the earwax removed by a health care provider. ? Do not put any objects, including cotton swabs, into your ear. You can clean the opening of your ear canal with a washcloth or facial tissue. This information is not intended to replace advice given to you by your health care provider. Make sure you discuss any questions you have with your health care provider. (more content not included)... Normal [facility] Urgent Care [address] 023 Urgent Care Record [facility] ? Urgent Care [address] [place] [address] PATIENT DISCHARGE INSTRUCTIONS Patient Information Name: BHAVESH KWONG Age: 22 Years Date of : 2000 Reason For Visit: UC - Ear Problem; LEFT EAR PROBLEM Arrival Time: 05/12/2022 10:40:34 Primary Care Physician: Provider, None Attending Physician: Virginia Llanes PA-C Comment: Visit Diagnosis: Diagnoses This Visit Impacted cerumen of both ears (H61.23) UC - Ear Problem ([id number]) If you received any narcotics, sedation, or any other medication that causes drowsiness for the next 24 hours, unless otherwise directed: ? Do not drive a car. ? Do not operate machinery such as power tools, lawn mowers, drills, sewing machines, or stoves ? Avoid alcoholic beverages and drugs for allergies, nerves, or sleep ? Do not make important personal or business decisions or sign any legal documents With: Address: When: Follow up with primary care provider Within 2 to 4 days Comments: Return if symptoms worsen Call for follow up appointment Medication Information: The exam and treatment you received today in the [facility] were for an urgent problem and are not intended as complete care. It is important for you to follow up with a doctor, nurse practitioner, or physician?s patient care assistant for ongoing care. If your symptoms become worse or you do not improve as expected and you are unable to reach your usual health care provider, you should return to the Emergency Department, we are available 24 hours a day. For those patients who have received Radiology results, the interpretation of your X-ray as given to you by our Urgent Care physician is only a preliminary report. The Radiologist will review your films and if there is a change in the diagnosis you will be notified by phone. Please make sure you have provided a working phone number so we can reach you if necessary. In the event that you had a lab culture while you were a patient in the Urgent Care, you will be notified by phone if there is a need to change your antibiotic. Please make sure you have provided a working phone number so we can reach you if necessary. [facility] has provided you with a complete list of medications post discharge. Please inform your apprenticeship representative/provider of your visit and for further instruction on these medications. Any specific questions regarding your chronic medications and dosages should be discussed with your primary care physician(s) and/or pharmacist. Additional medications on your home medication list not specifically addressed. Please contact the ordering physician if you have questions about these medications. inFLIXimab (Inflectra 100 mg additive) Visit Information Allergies: Substance Reaction Symptoms Type Comments No Known Medication Allergies Drug Vital Signs: Vitals and Measurements this Visit (last charted value for your 05/12/2022 visit) Vital Signs This Visit Temperature Oral: 37 DegC Peripheral Pulse Rate: 87 bpm Respiratory Rate: 14 br/min Systolic Blood Pressure: 134 mmHg Diastolic Blood Pressure: 73 mmHg SpO2: 97 % Oxygen Therapy: Room air Blood Pressure Method: Automatic Measurements This Visit Height/Length Measured: 175.26 cm Weight Measured: 68.04 kg Body Mass Index: 22.15 kg/m2 BSA Measured: 1.82 m2 Problems List: Problem Onset Comments No Problems found Patient Education Earwax Buildup, Adult The ears produce a substance called earwax that helps keep bacteria out of the ear and protects the skin in the ear canal. Occasionally, earwax can build up in the ear and cause discomfort or hearing loss. What are the causes? This condition is caused by a buildup of earwax. Ear canals are self-cleaning. Ear wax is made in the outer part of the ear canal and generally falls out in small amounts over time. When the self-cleaning mechanism is not working, earwax builds up and can cause decreased hearing and discomfort. Attempting to clean ears with cotton swabs can push the earwax deep into the ear canal and cause decreased hearing and pain. What increases the risk? This condition is more likely to develop in people who: ? Clean their ears often with cotton swabs. ? Pick at their ears. ? Use earplugs or in-ear headphones often, or wear hearing aids. The following factors may also make you more likely to develop this condition: ? Being male. ? Being of older age. ? Naturally producing more earwax. ? Having narrow ear canals. ? Having earwax that is overly thick or sticky. ? Having excess hair in the ear canal. ? Having eczema. ? Being dehydrated. What are the signs or symptoms? Symptoms of this condition include: ? Reduced or muffled hearing. ? A feeling of fullness in the ear or feeling that the ear is plugged. ? Fluid coming from the ear. ? Ear pain or an itchy (more content not included)... [facility] Progress Noteon 05-10-2022 Audiology Technician Authentication Interface Message Text Subjective: Patient ID: Bhavesh Kwong is a 22 y.o. male - diagnosis IBD (more consistent with UC; 05/06/15) ---History mainly from patient, but also from parent (mother) ---Patient last seen 04/14/21 (Telemedicine) This is not a consultation. He is accompanied by his mother. No lithograph printer was used. Bhavesh is a 22 y.o. male with ulcerative colitis. Colectomy status: has not had a complete colectomy Past Surgical History Past Surgical History: Procedure Laterality Date ESOPHAGOSCOPY N/A 05/06/2015 ENDOSCOPY (UPPER AND COLONOSCOPY) with biopsies performed by Josi Mariano MD at [facility] OR ESOPHAGOSCOPY N/A 02/07/2016 ENDOSCOPY (UPPER AND COLONOSCOPY) with biopsies performed by Josi Mariano MD at [facility] OR Extent of disease involvement The extent of ulcerative colitis involvement: pancolitis There has not been an episode of severe disease Current symptoms (on the worst day in past 7 days) He reports on the worst day his general well-being is . Limitations in daily activities were described as: . Abdominal pain: . Stool number on the worst day in past 7 days: . The number of liquid/watery stools per day was . Most of the stools were described as . Nocturnal diarrhea: . He . . Extraintestinal manifestations: Fever greater than 38.5C for 3 of last 7 days: Definite arthritis: Uveitis: Erythema nodosum: Pyoderma gangrenosum: Current meds/therapies: Current Outpatient Medications: inFLIXimab-dyyb (INFLECTRA) 100 MG SOLR injection, 400mg IV Infusion every 8 weeks, Disp: 4 Each, Rfl: 5 REMICADE 100 MG injection, INFUSE 400 MG EVERY 8 WEEKS (DISCARD UNUSED PORTION) (Patient not taking: Reported on 05/10/2022), Disp: 4 Each, Rfl: 5 REMICADE 100 MG injection, 400mg, IV infusion, every 8 weeks (Patient not taking: Reported on 05/10/2022), Disp: 4 mL, Rfl: 2 Objective: Temp 36.2 C (97.2 F) (Temporal) Ht 175.6 cm Wt 67.3 kg BMI 21.83 kg/m Based on current information, my global assessment of current disease status is his disease is . Bhavesh s growth status is . The overall nutritional status is . His primary survey compiler will be Remicade: Started 06/01/15 (200mg); increased 09/07/15 to 300mg due to weight gain ---Last - ? Early Mar 2022; Now Getting at [facility]; Inflectra ---Next - q8 weeks - 400mg (? next week) MTX: had stopped - non compliant and did not want to take ---but had been on >1 year previously (with Remicade) ABD pain - No issues Stooling - Doing well ---1-2x per day ---No diarrhea ---No blood ---No waking to stool UO - Doing well N/V - No issues Appetite - Doing well ---eating very well and larger amounts Growth - No weight loss ---BMI - 21.8 Activity - Doing well ---Work - [employer] Fevers - No issues Rashes - No issues Joints - No pain or swelling Mouth - No sores Eyes - No pain or swelling Currently: 12/26 (10 = well) ---Last seen = 12/26 (10 = good) Review of Systems Constitutional: Positive for weight gain. Negative for recurrent fevers, weight loss and malaise/fatigue. HENT: Negative for trouble swallowing. Eyes: Positive for wears glasses. Respiratory: Negative for coughing, wheezing and asthma. Cardiovascular: Negative for heart murmur and chest pain. Endocrine: Negative for poor growth (Previously - now resolved). Gastrointestinal: Negative for constipation, soiling underpants, diarrhea, vomiting, heartburn, blood in stool, trouble swallowing, abdominal pain, nausea and liver problems. Hx of UC Genitourinary: Negative for dysuria, hematuria and frequent urination. Neurological: Negative for developmental delays and seizures. Skin: Negative for rash. Allergy/Immune: Positive for immune problems (Immunosuppressed - on Inflectra). Negative for allergies. Hematology: Negative for no easy bleeding, no anemia (+Previously, but now resolved) and no blood transfusions. The patient's past medical, surgical history, family history, and medications were reviewed and updated in EPIC (electronic medical record). Vitals: 05/10/22 1640 Temp: 36.2 C (97.2 F) TempSrc: Temporal Weight: 67.3 kg Height: 175.6 cm Objective: Physical Exam Vitals reviewed. Constitutional: General: He is active. Appearance: He is well-developed and well-nourished. He is not overweight and not thin. HENT: Mouth/Throat: Mouth: Mucous membranes are moist. Eyes: Conjunctiva/sclera: Conjunctivae normal. Cardiovascular: Heart sounds: No murmur heard. Pulmonary: Effort: Pulmonary effort is normal. Breath sounds: Normal breath sounds. Abdominal: General: Bowel sounds are normal. There is no distension. Palpations: Abdomen is soft. Abdomen is not rigid. There is no hepatosplenomegaly. Tenderness: There is no abdominal tenderness. There is no CVA tenderness, guarding or rebound. Musculoskeletal: Cervical back: Normal range of motion. Neurological: Ment (more content not included)... Normal [facility] CBC AUTO DIFFon 03-16-2022 BASO # 0.0 103/ul Normal 0.0-0.1 [facility] Comment on above: Performed By: #### C RP, LIVER, BMP #### [facility] [address] [place] [address] Dr. Raymundo Rodriguez Basophils/100 WBC (Bld) 0.5 % Normal 0.2-2.0 [facility] Comment on above: Performed By: #### C RP, LIVER, BMP #### [facility] [address] [place] [address] Dr. Raymundo Rodriguez EO # 0.1 103/ul Normal 0.0-0.7 [facility] Comment on above: Performed By: #### C RP, LIVER, BMP #### [facility] [address] [place] [address] Dr. Raymundo Rodriguez Eosinophils/100 WBC (Bld) 2.5 % Normal 0.9-7.0 [facility] Comment on above: Performed By: #### C RP, LIVER, BMP #### [facility] [address] [place] [address] Dr. Raymundo Rodriguez Erythrocyte distribution width (RBC) [Ratio] 11.9 % Normal 11.0-15.0 [facility] Comment on above: Performed By: #### C RP, LIVER, BMP #### [facility] [address] [place] [address] Dr. Raymundo Rodriguez Hematocrit (Bld) [Volume fraction] 45.4 % Normal 42.0-54.0 [facility] Comment on above: Performed By: #### C RP, LIVER, BMP #### [facility] [address] [place] [address] Dr. Raymundo Rodriguez Hemoglobin (Bld) [Mass/Vol] 15.3 g/dL Normal 14.0-18.0 [facility] Comment on above: Performed By: #### C RP, LIVER, BMP #### [facility] [address] [place] [address] Dr. Raymundo Rodriguez IG # 0.01 10e3/ul Normal 0.00-0.03 [facility] Comment on above: Performed By: #### C RP, LIVER, BMP #### [facility] [address] [address] [address] Raymundo Rodriguez IG % 0.3 % Normal 0.0-0.5 [facility] Comment on above: Performed By: #### C RP, LIVER, BMP #### [facility] [address] [place] [address] Dr. Raymundo Rodriguez LYMPH # 1.2 103/ul Normal 1.2-3.8 [facility] Comment on above: Performed By: #### C RP, LIVER, BMP #### [facility] [address] [place] [address] Dr. Raymundo Rodriguez Lymphocytes/100 WBC (Bld) 29.1 % Normal 20.5-60.0 [facility] Comment on above: Performed By: #### C RP, LIVER, BMP #### [facility] [address] [place] [address] Dr. Raymundo Rodriguez MANUAL DIFF REQ NO Normal [facility] Comment on above: Performed By: #### C RP, LIVER, BMP #### [facility] [address] [place] [address] Dr. Raymundo Rodriguez MCH (RBC) [Entitic mass] 30.3 pg Normal 25.9-34.0 [facility] Comment on above: Performed By: #### C RP, LIVER, BMP #### [facility] [address] [place] [address] Dr. Raymundo Rodriguez MCHC (RBC) [Mass/Vol] 33.7 g/dL Normal 29.9-35.2 [facility] Comment on above: Performed By: #### C RP, LIVER, BMP #### [facility] [address] [place] [address] Dr. Raymundo Rodriguez MCV (RBC) [Entitic vol] 89.9 fL Normal 80.0-94.0 [facility] Comment on above: Performed By: #### C RP, LIVER, BMP #### [facility] [address] [place] [address] Dr. Raymundo Rodriguez MONO # 0.4 103/ul Normal 0.3-0.8 [facility] Comment on above: Performed By: #### C RP, LIVER, BMP #### [facility] [address] [place] [address] Dr. Raymundo Rodriguez Monocytes/100 WBC (Bld) 9.5 % Normal 1.7-12.0 [facility] Comment on above: Performed By: #### C RP, LIVER, BMP #### [facility] [address] [place] [address] Dr. Raymundo Rodriguez NEUT # 2.3 103/ul Normal 1.4-6.5 [facility] Comment on above: Performed By: #### C RP, LIVER, BMP #### [facility] [address] [place] [address] Dr. Raymundo Rodriguez Neutrophils/100 WBC (Bld) 58.1 % Normal 43.0-75.0 [facility] Comment on above: Performed By: #### C RP, LIVER, BMP #### [facility] [address] [place] [address] Dr. Raymundo Rodriguez Platelet mean volume (Bld) [Entitic vol] 11.0 fL Normal 9.5-13.5 [facility] Comment on above: Performed By: #### C RP, LIVER, BMP #### [facility] [address] [place] [address] Dr. Raymundo Rodriguez PLT 179 103/ul Normal 150-450 [facility] Comment on above: Performed By: #### C RP, LIVER, BMP #### [facility] [address] [place] [address] Dr. Raymundo Rodriguez RBC 5.05 106/ul Normal 4.70-6.10 [facility] Comment on above: Performed By: #### C RP, LIVER, BMP #### [facility] [address] [place] [address] Dr. Raymundo Rodriguez WBC 4.0 103/ul Normal 4.0-11.0 [facility] Comment on above: Performed By: #### C RP, LIVER, BMP #### [facility] [address] [place] [address] [address] Raymundo Rodriguez CRPon 03-16-2022 CRP [Mass/Vol] mg/L Normal <=1.[address] [facility] Comment on above: Performed By: #### C RP, LIVER, BMP #### [facility] [address] [place] [address] [address] Raymundo Rodriguez LIVER PROFILEon 03-16-2022 Albumin [Mass/Vol] 3.5 g/dL Normal 3.4-5.0 [facility] Comment on above: Performed By: #### C RP, LIVER, BMP #### [facility] [address] [place] [address] [address] Rayumndo Rodriguez Albumin/Globulin [Mass ratio] 0.9 {ratio} Normal [facility] Comment on above: Performed By: #### C RP, LIVER, BMP #### [facility] [address] [place] [address] Dr. Raymundo Rodriguez ALP [Catalytic activity/Vol] 77 U/L Normal 46-116 [facility] Comment on above: Performed By: #### C RP, LIVER, BMP #### [facility] [address] [place] [address] [address] Raymundo Rodriguez ALT [Catalytic activity/Vol] 21 U/L Normal 16-63 [facility] Comment on above: Performed By: #### C RP, LIVER, BMP #### [facility] [address] [place] [address] [address] Raymundo Rodriguez AST [Catalytic activity/Vol] 18 U/L Normal 15-37 [facility] Comment on above: Performed By: #### C RP, LIVER, BMP #### [facility] [address] [place] [address] Dr. Raymundo Rodriguez BILI, CONJUGATED 0.1 mg/dL Normal 0.0-0.[address] [facility] Comment on above: Performed By: #### C RP, LIVER, BMP #### [facility] [address] [place] [address] [address] Raymundo Rodriguez Bilirubin [Mass/Vol] 0.6 mg/dL Normal 0.2-1.0 [facility] Comment on above: Performed By: #### C RP, LIVER, BMP #### [facility] [address] [place] [address] [address] Raymundo Rodriguez Globulin (S) [Mass/Vol] 3.8 g/dL Normal [facility] Comment on above: Performed By: #### C RP, LIVER, BMP #### [facility] [address] [place] [address] Dr. Raymundo Rodriguez Protein [Mass/Vol] 7.3 g/dL Normal 6.4-8.2 [facility] Comment on above: Performed By: #### C RP, LIVER, BMP #### [facility] [address] [place] [address] Dr. Raymundo Rodriguez PROF CHEM 8 (BAS METB)on Anion gap [Moles/Vol] 9.3 mmol/L Normal [facility] Comment on above: Performed By: #### C RP, LIVER, BMP #### [facility] [address] [place] [address] Dr. Raymundo Rodriguez Calcium [Mass/Vol] 8.7 mg/dL Normal 8.5-10.1 [facility] Comment on above: Performed By: #### C RP, LIVER, BMP #### [facility] [address] [place] [address] Dr. Raymundo Rodriguez Chloride [Moles/Vol] 102 mmol/L Normal 98-107 [facility] Comment on above: Performed By: #### C RP, LIVER, BMP #### [facility] [address] [place] [address] Dr. Raymundo Rodriguez CO2 [Moles/Vol] 32.3 mmol/L Critically high 21.0-32.0 [facility] Comment on above: Performed By: #### C RP, LIVER, BMP #### [facility] [address] [place] [address] Dr. Raymunod Rodriguez Creatinine [Mass/Vol] 1.14 mg/dL Normal 0.70-1.30 [facility] Comment on above: Performed By: #### C RP, LIVER, BMP #### [facility] [address] [place] [address] [address] Raymundo Rodriguez EGFR-AF ZIMBABWEAN >60 Normal >=60 [facility] Comment on above: Performed By: #### C RP, LIVER, BMP #### [facility] [address] [place] [address] [address] Raymundo Rodriguez EGFR-NON AF ZIMBABWEAN >60 Normal >=60 [facility] Comment on above: Performed By: #### C RP, LIVER, BMP #### [facility] [address] [place] [address] [address] Raymundo Rodriguez Glucose [Mass/Vol] 92 mg/dL Normal 74-106 [facility] Comment on above: Performed By: #### C RP, LIVER, BMP #### [facility] [address] [place] [address] Dr. Raymundo Rodriguez Potassium [Moles/Vol] 3.6 mmol/L Normal 3.5-5.1 [facility] Comment on above: Performed By: #### C RP, LIVER, BMP #### [facility] [address] [place] [address] Dr. Raymundo Rodriguez Sodium [Moles/Vol] 140 mmol/L Normal 136-145 [facility] Comment on above: Performed By: #### C RP, LIVER, BMP #### [facility] [address] [place] [address] Dr. Raymundo Rodriguez Urea nitrogen [Mass/Vol] 14.0 mg/dL Normal 6.4-19.3 [facility] Comment on above: Performed By: #### C RP, LIVER, BMP #### [facility] [address] [place] [address] Dr. Raymundo Rodriguez Urea nitrogen/Creatinine [Mass ratio] 12.3 mg/mg Normal [facility] Comment on above: Performed By: #### C RP, LIVER, BMP #### [facility] [address] [place] [address] Dr. Raymundo Rodrgiuez SED RATE [facility] 2021 SED RATE 11 mm/hr Normal <=15 [facility] Comment on above: Performed By: #### S EDR #### [facility] [address] [place] [address] Dr. Raymundo Rodriguez CBC AUTO DIFFon 01-12-2022 BASO # 0.0 103/ul Normal 0.0-0.1 [facility] Comment on above: Performed By: #### C RP, LIVER, BMP #### [facility] [address] [place] [address] Dr. Raymundo Rodriguez Basophils/100 WBC (Bld) 0.6 % Normal 0.2-2.0 [facility] Comment on above: Performed By: #### C RP, LIVER, BMP #### [facility] [address] [place] [address] Dr. Raymundo Rodriguez EO # 0.1 103/ul Normal 0.0-0.7 [facility] Comment on above: Performed By: #### C RP, LIVER, BMP #### [facility] [address] [place] [address] Dr. Raymundo Rodriguez Eosinophils/100 WBC (Bld) 2.6 % Normal 0.9-7.0 [facility] Comment on above: Performed By: #### C RP, LIVER, BMP #### [facility] [address] [place] [address] Dr. Raymundo Rodriguez Erythrocyte distribution width (RBC) [Ratio] 12.4 % Normal 11.0-15.0 [facility] Comment on above: Performed By: #### C RP, LIVER, BMP #### [facility] [address] [place] [address] Dr. Raymundo Rodriguez Hematocrit (Bld) [Volume fraction] 45.0 % Normal 42.0-54.0 [facility] Comment on above: Performed By: #### C RP, LIVER, BMP #### [facility] [address] [place] [address] Dr. Ramyundo Rodriguez Hemoglobin (Bld) [Mass/Vol] 15.3 g/dL Normal 14.0-18.0 [facility] Comment on above: Performed By: #### C RP, LIVER, BMP #### [facility] [address] [place] [address] Dr. Raymundo Rodriguez IG # 0.02 10e3/ul Normal 0.00-0.03 [facility] Comment on above: Performed By: #### C RP, LIVER, BMP #### [facility] [address] [place] [address] Dr. Raymundo Rodriguez IG % 0.4 % Normal 0.0-0.5 [facility] Comment on above: Performed By: #### C RP, LIVER, BMP #### [facility] [address] [place] [address] Dr. Raymundo Rodriguez LYMPH # 1.3 103/ul Normal 1.2-3.8 [facility] Comment on above: Performed By: #### C RP, LIVER, BMP #### [facility] [address] [place] [address] Dr. Raymundo Rodriguez Lymphocytes/100 WBC (Bld) 23.7 % Normal 20.5-60.0 [facility] Comment on above: Performed By: #### C RP, LIVER, BMP #### [facility] [address] [place] [address] Dr. Raymundo Rodriguez MANUAL DIFF REQ NO Normal [facility] Comment on above: Performed By: #### C RP, LIVER, BMP #### [facility] [address] [place] [address] Dr. Raymundo Rodriguez MCH (RBC) [Entitic mass] 30.5 pg Normal 25.9-34.0 [facility] Comment on above: Performed By: #### C RP, LIVER, BMP #### [facility] [address] [place] [address] Dr. Raymundo Rodriguez MCHC (RBC) [Mass/Vol] 34.0 g/dL Normal 29.9-35.2 [facility] Comment on above: Performed By: #### C RP, LIVER, BMP #### [facility] [address] [place] [address] Dr. Raymundo Rodriguez MCV (RBC) [Entitic vol] 89.6 fL Normal 80.0-94.0 [facility] Comment on above: Performed By: #### C RP, LIVER, BMP #### [facility] [address] [place] [address] Dr. Raymundo Rodriguez MONO # 0.5 103/ul Normal 0.3-0.8 [facility] Comment on above: Performed By: #### C RP, LIVER, BMP #### [facility] [address] [place] [address] Dr. Raymundo Rodriguez Monocytes/100 WBC (Bld) 9.0 % Normal 1.7-12.0 [facility] Comment on above: Performed By: #### C RP, LIVER, BMP #### [facility] [address] [place] [address] Dr. Raymundo Rodriguez NEUT # 3.4 103/ul Normal 1.4-6.5 [facility] Comment on above: Performed By: #### C RP, LIVER, BMP #### [facility] [address] [place] [address] Dr. Raymundo Rodriguez Neutrophils/100 WBC (Bld) 63.7 % Normal 43.0-75.0 [facility] Comment on above: Performed By: #### C RP, LIVER, BMP #### [facility] [address] [place] [address] Dr. Raymundo Rodriguez Platelet mean volume (Bld) [Entitic vol] 11.9 fL Normal 9.5-13.5 [facility] Comment on above: Performed By: #### C RP, LIVER, BMP #### [facility] [address] [place] [address] Dr. Raymundo Rodriguez PLT 184 103/ul Normal 150-450 [facility] Comment on above: Performed By: #### C RP, LIVER, BMP #### [facility] [address] [place] [address] Dr. Raymundo Rodriguez RBC 5.02 106/ul Normal 4.70-6.10 [facility] Comment on above: Performed By: #### C RP, LIVER, BMP #### [facility] [address] [place] [address] Dr. Raymundo Rodriguez WBC 5.3 103/ul Normal 4.0-11.0 [facility] Comment on above: Performed By: #### C RP, LIVER, BMP #### [facility] [address] [place] [address] [address] Raymundo Rodriguez CRPon 01-12-2022 CRP [Mass/Vol] mg/L Normal <=1.[address] [facility] Comment on above: Performed By: #### C RP, LIVER, BMP #### [facility] [address] [place] [address] [address] Raymundo Rodriguez LIVER PROFILEon 01-12-2022 Albumin [Mass/Vol] 3.4 g/dL Normal 3.4-5.0 [facility] Comment on above: Performed By: #### C RP, LIVER, BMP #### [facility] [address] [place] [address] [address] Raymundo Rodriguez Albumin/Globulin [Mass ratio] 0.9 {ratio} Normal [facility] Comment on above: Performed By: #### C RP, LIVER, BMP #### [facility] [address] [place] [address] [address] Raymundo Rodriguez ALP [Catalytic activity/Vol] 95 U/L Normal 46-116 [facility] Comment on above: Performed By: #### C RP, LIVER, BMP #### [facility] [address] [place] [address] Dr. Raymundo Rodriguez ALT [Catalytic activity/Vol] 25 U/L Normal 16-63 [facility] Comment on above: Performed By: #### C RP, LIVER, BMP #### [facility] [address] [place] [address] [address] Raymundo Rodriguez AST [Catalytic activity/Vol] 23 U/L Normal 15-37 [facility] Comment on above: Performed By: #### C RP, LIVER, BMP #### [facility] [address] [place] [address] [address] Raymundo Rodriguez BILI, CONJUGATED 0.1 mg/dL Normal 0.0-0.[address] [facility] Comment on above: Performed By: #### C RP, LIVER, BMP #### [facility] [address] [place] [address] [address] Raymundo Rodriguez Bilirubin [Mass/Vol] 0.5 mg/dL Normal 0.2-1.0 [facility] Comment on above: Performed By: #### C RP, LIVER, BMP #### [facility] [address] [place] [address] Dr. Raymundo Rodriguez Globulin (S) [Mass/Vol] 3.8 g/dL Normal T [facility] Comment on above: Performed By: #### C RP, LIVER, BMP #### [facility] [address] [place] [address] Dr. Raymundo Rodriguez Protein [Mass/Vol] 7.2 g/dL Normal 6.4-8.2 [facility] Comment on above: Performed By: #### C RP, LIVER, BMP #### [facility] [address] [place] [address] Dr. Raymundo Rodriguez PROF CHEM 8 (BAS METB)on Anion gap [Moles/Vol] 11.5 mmol/L Normal [facility] Comment on above: Performed By: #### C RP, LIVER, BMP #### [facility] [address] [place] [address] Dr. Raymundo Rodriguez Calcium [Mass/Vol] 8.4 mg/dL Critically low 8.5-10.1 [facility] Comment on above: Performed By: #### C RP, LIVER, BMP #### [facility] [address] [place] [address] Dr. Raymundo Rodriguez Chloride [Moles/Vol] 106 mmol/L Normal 98-107 [facility] Comment on above: Performed By: #### C RP, LIVER, BMP #### [facility] [address] [place] [address] Dr. Raymundo Rodriguez CO2 [Moles/Vol] 28.3 mmol/L Normal 21.0-32.[address] [facility] Comment on above: Performed By: #### C RP, LIVER, BMP #### [facility] [address] [place] [address] Dr. Raymundo Rodriguez Creatinine [Mass/Vol] 1.01 mg/dL Normal 0.70-1.30 [facility] Comment on above: Performed By: #### C RP, LIVER, BMP #### [facility] [address] [address] [address] Raymundo Rodriguez EGFR-AF ZIMBABWEAN >60 Normal >=60 [facility] Comment on above: Performed By: #### C RP, LIVER, BMP #### [facility] [address] [address] [address] Raymundo Rodriguez EGFR-NON AF ZIMBABWEAN >60 Normal >=60 [facility] Comment on above: Performed By: #### C RP, LIVER, BMP #### [facility] [address] [address] [address] Raymundo Rodriguez Glucose [Mass/Vol] 80 mg/dL Normal 74-106 [facility] Comment on above: Performed By: #### C RP, LIVER, BMP #### [facility] [address] [address] [address] Raymundo Rodriguez Potassium [Moles/Vol] 3.8 mmol/L Normal 3.5-5.1 [facility] Comment on above: Performed By: #### C RP, LIVER, BMP #### [facility] [address] [address] [address] Raymundo Rodriguez Sodium [Moles/Vol] 142 mmol/L Normal 136-145 [facility] Comment on above: Performed By: #### C RP, LIVER, BMP #### [facility] [address] [address] [address] Raymundo Rodriguez Urea nitrogen [Mass/Vol] 12.0 mg/dL Normal 6.4-19.3 [facility] Comment on above: Performed By: #### C RP, LIVER, BMP #### [facility] [address] [address] [address] Raymundo Rodriguez Urea nitrogen/Creatinine [Mass ratio] 11.9 mg/mg Normal [facility] Comment on above: Performed By: #### C RP, LIVER, BMP #### [facility] [address] [address] [address] Raymundo Rodriguez SED RATE [facility] 2021 SED RATE 11 mm/hr Normal <=15 [facility] Comment on above: Performed By: #### C RP, LIVER, BMP #### [facility] [address] [address] [address] Raymundo Rodriguez CBC AUTO DIFFon 11-10-2021 BASO # 0.0 103/ul Normal 0.0-0.1 [facility] Comment on above: Performed By: #### C BC #### [facility] [address] [address] [address] Raymundo Rodriguez Basophils/100 WBC (Bld) 0.5 % Normal 0.2-2.0 [facility] Comment on above: Performed By: #### C BC #### [facility] [address] [place] [address] Dr. Raymundo Rodriguez EO # 0.1 103/ul Normal 0.0-0.7 [facility] Comment on above: Performed By: #### C BC #### [facility] [address] [place] [address] Dr. Raymundo Rodriguez Eosinophils/100 WBC (Bld) 2.3 % Normal 0.9-7.0 [facility] Comment on above: Performed By: #### C BC #### [facility] [address] [place] [address] Dr. Raymundo Rodriguez Erythrocyte distribution width (RBC) [Ratio] 11.8 % Normal 11.0-15.0 [facility] Comment on above: Performed By: #### C BC #### [facility] [address] [place] [address] Dr. Raymundo Rodriguez Hematocrit (Bld) [Volume fraction] 45.2 % Normal 42.0-54.0 [facility] Comment on above: Performed By: #### C BC #### [facility] [address] [place] [address] Dr. Raymundo Rodriguez Hemoglobin (Bld) [Mass/Vol] 15.3 g/dL Normal 14.0-18.0 [facility] Comment on above: Performed By: #### C BC #### [facility] [address] [place] [address] Dr. Raymundo Rodriguez IG # 0.01 10e3/ul Normal 0.00-0.03 [facility] Comment on above: Performed By: #### C BC #### [facility] [address] [place] [address] Dr. Raymundo Rodriguez IG % 0.2 % Normal 0.0-0.5 [facility] Comment on above: Performed By: #### C BC #### [facility] [address] [place] [address] Dr. Raymundo Rodriguez LYMPH # 1.6 103/ul Normal 1.2-3.8 [facility] Comment on above: Performed By: #### C BC #### [facility] [address] [place] [address] Dr. Raymundo Rodriguez Lymphocytes/100 WBC (Bld) 36.2 % Normal 20.5-60.0 [facility] Comment on above: Performed By: #### C BC #### [facility] [address] [place] [address] Dr. Raymundo Rodriguez MANUAL DIFF REQ NO Normal [facility] Comment on above: Performed By: #### C BC #### [facility] [address] [place] [address] Dr. Raymundo Rodriguez MCH (RBC) [Entitic mass] 30.9 pg Normal 25.9-34.0 [facility] Comment on above: Performed By: #### C BC #### [facility] [address] [place] [address] Dr. Raymundo Rodriguez MCHC (RBC) [Mass/Vol] 33.8 g/dL Normal 29.9-35.2 [facility] Comment on above: Performed By: #### C BC #### [facility] [address] [place] [address] Dr. Raymundo Rodriguez MCV (RBC) [Entitic vol] 91.3 fL Normal 80.0-94.0 [facility] Comment on above: Performed By: #### C BC #### [facility] [address] [place] [address] Dr. Raymundo Rodriguez MONO # 0.4 103/ul Normal 0.3-0.8 [facility] Comment on above: Performed By: #### C BC #### [facility] [address] [place] [address] Dr. Raymundo Rodriguez Monocytes/100 WBC (Bld) 8.9 % Normal 1.7-12.0 [facility] Comment on above: Performed By: #### C BC #### [facility] [address] [place] [address] Dr. Raymundo Rodriguez NEUT # 2.3 103/ul Normal 1.4-6.5 [facility] Comment on above: Performed By: #### C BC #### [facility] [address] [place] [address] Dr. Raymundo Rodriguez Neutrophils/100 WBC (Bld) 51.9 % Normal 43.0-75.0 [facility] Comment on above: Performed By: #### C BC #### [facility] [address] [place] [address] Dr. Raymundo Rodriguez Platelet mean volume (Bld) [Entitic vol] 11.5 fL Normal 9.5-13.5 [facility] Comment on above: Performed By: #### C BC #### [facility] [address] [place] [address] Dr. Raymundo Rodriguez PLT 157 103/ul Normal 150-450 [facility] Comment on above: Performed By: #### C BC #### [facility] [address] [place] [address] Dr. Raymundo Rodriguez RBC 4.95 106/ul Normal 4.70-6.10 [facility] Comment on above: Performed By: #### C BC #### [facility] [address] [place] [address] Dr. Raymundo Rodriguez WBC 4.4 103/ul Normal 4.0-11.0 [facility] Comment on above: Performed By: #### C BC #### [facility] [address] [place] [address] Dr. Raymundo Rodriguez CRPon 11-10-2021 CRP [Mass/Vol] mg/L Normal <=1.[address] [facility] Comment on above: Performed By: #### C RP, LIVER, BMP #### [facility] [address] [address] [address] Raymundo Rodriguez LIVER PROFILEon 11-10-2021 Albumin [Mass/Vol] 3.5 g/dL Normal 3.4-5.0 [facility] Comment on above: Performed By: #### C RP, LIVER, BMP #### [facility] [address] [address] [address] Raymundo Rodriguez Albumin/Globulin [Mass ratio] 1.0 {ratio} Normal [facility] Comment on above: Performed By: #### C RP, LIVER, BMP #### [facility] [address] [address] [address] Raymundo Rodriguez ALP [Catalytic activity/Vol] 83 U/L Normal 46-116 [facility] Comment on above: Performed By: #### C RP, LIVER, BMP #### [facility] [address] [place] [address] Dr. Raymundo Rodriguez ALT [Catalytic activity/Vol] 22 U/L Normal 16-63 [facility] Comment on above: Performed By: #### C RP, LIVER, BMP #### [facility] [address] [address] [address] Raymundo Rodriguez AST [Catalytic activity/Vol] 16 U/L Normal 15-37 [facility] Comment on above: Performed By: #### C RP, LIVER, BMP #### [facility] [address] [address] [address] Raymundo Rodriguez BILI, CONJUGATED 0.1 mg/dL Normal 0.0-0.[address] [facility] Comment on above: Performed By: #### C RP, LIVER, BMP #### [facility] [address] [address] [address] Raymundo Rodriguez Bilirubin [Mass/Vol] 0.3 mg/dL Normal 0.2-1.0 [facility] Comment on above: Performed By: #### C RP, LIVER, BMP #### [facility] [address] [address] [address] Raymundo Rodriguez Globulin (S) [Mass/Vol] 3.5 g/dL Normal T [facility] Comment on above: Performed By: #### C RP, LIVER, BMP #### [facility] [address] [address] [address] Raymundo Rodriguez Protein [Mass/Vol] 7.0 g/dL Normal 6.4-8.2 [facility] Comment on above: Performed By: #### C RP, LIVER, BMP #### [facility] [address] [address] [address] Raymundo Rodriguez PROF CHEM 8 (BAS METB)on Anion gap [Moles/Vol] 11.8 mmol/L Normal [facility] Comment on above: Performed By: #### C RP, LIVER, BMP #### [facility] [address] [place] [address] Dr. Raymundo Rodriguez Calcium [Mass/Vol] 8.5 mg/dL Normal 8.5-10.1 [facility] Comment on above: Performed By: #### C RP, LIVER, BMP #### [facility] [address] [place] [address] Dr. Raymundo Rodirguez Chloride [Moles/Vol] 106 mmol/L Normal 98-107 [facility] Comment on above: Performed By: #### C RP, LIVER, BMP #### [facility] [address] [place] [address] Dr. Raymundo Rodriguez CO2 [Moles/Vol] 27.9 mmol/L Normal 21.0-32.0 [facility] Comment on above: Performed By: #### C RP, LIVER, BMP #### [facility] [address] [place] [address] Dr. Raymundo Rodriguez Creatinine [Mass/Vol] 1.22 mg/dL Normal 0.70-1.30 [facility] Comment on above: Performed By: #### C RP, LIVER, BMP #### [facility] [address] [place] [address] Dr. Raymundo Rodriguez EGFR-AF ZIMBABWEAN >60 Normal >=60 [facility] Comment on above: Performed By: #### C RP, LIVER, BMP #### [facility] [address] [place], [place] [id number] Dr. Raymundo Rodriguez EGFR-NON AF ZIMBABWEAN >60 Normal >=60 [facility] Comment on above: Performed By: #### C RP, LIVER, BMP #### [facility] [address] [place] [address] Dr. Raymundo Rodriguez Glucose [Mass/Vol] 108 mg/dL Critically high 74-106 T [facility] Comment on above: Performed By: #### C RP, LIVER, BMP #### [facility] [address] [place] [address] Dr. Raymundo Rodriguez Potassium [Moles/Vol] 3.7 mmol/L Normal 3.5-5.1 [facility] Comment on above: Performed By: #### C RP, LIVER, BMP #### [facility] [address] [place] [address] Dr. Raymundo Rodriguez Sodium [Moles/Vol] 142 mmol/L Normal 136-145 [facility] Comment on above: Performed By: #### C RP, LIVER, BMP #### [facility] [address] [place] [address] Dr. Raymundo Rodriguez Urea nitrogen [Mass/Vol] 15.0 mg/dL Normal 6.4-19.3 [facility] Comment on above: Performed By: #### C RP, LIVER, BMP #### [facility] [address] [place] [address] Dr. Raymundo Rodriguez Urea nitrogen/Creatinine [Mass ratio] 12.3 mg/mg Normal [facility] Comment on above: Performed By: #### C RP, LIVER, BMP #### [facility] [address] [place] [address] Dr. Raymundo Rodriguez SED RATE WESTERGRENon 2021 SED RATE 8 mm/hr Normal <=15 [facility] Comment on above: Performed By: #### S EDR #### [facility] [address] [place] [address] Dr. Raymundo Rodriguez CBC AUTO DIFFon 09-08-2021 BASO # 0.0 103/ul Normal 0.0-0.1 [facility] Comment on above: Performed By: #### C RP, LIVER, BMP #### [facility] [address] [place] [address] Dr. Raymundo Rodriguez Basophils/100 WBC (Bld) 0.5 % Normal 0.2-2.0 [facility] Comment on above: Performed By: #### C RP, LIVER, BMP #### [facility] [address] [place] [address] Dr. Raymundo Rodriguez EO # 0.1 103/ul Normal 0.0-0.7 [facility] Comment on above: Performed By: #### C RP, LIVER, BMP #### [facility] [address] [place] [address] Dr. Raymundo Rodriguez Eosinophils/100 WBC (Bld) 1.6 % Normal 0.9-7.0 [facility] Comment on above: Performed By: #### C RP, LIVER, BMP #### [facility] [address] [place] [address] Dr. Raymundo Rodriguez Erythrocyte distribution width (RBC) [Ratio] 12.4 % Normal 11.0-15.0 [facility] Comment on above: Performed By: #### C RP, LIVER, BMP #### [facility] [address] [place] [address] Dr. Raymundo Rodriguez Hematocrit (Bld) [Volume fraction] 49.0 % Normal 42.0-54.0 [facility] Comment on above: Performed By: #### C RP, LIVER, BMP #### [facility] [address] [place] [address] Dr. Raymundo Rodriguez Hemoglobin (Bld) [Mass/Vol] 16.1 g/dL Normal 14.0-18.0 [facility] Comment on above: Performed By: #### C RP, LIVER, BMP #### [facility] [address] [place] [address] Dr. Raymundo Rodriguez IG # 0.01 10e3/ul Normal 0.00-0.03 [facility] Comment on above: Performed By: #### C RP, LIVER, BMP #### [facility] [address] [place] [address] Dr. Raymundo Rodriguez IG % 0.2 % Normal 0.0-0.5 [facility] Comment on above: Performed By: #### C RP, LIVER, BMP #### [facility] [address] [place] [address] Dr. aRymundo Rodriguez LYMPH # 0.9 103/ul Critically low 1.2-3.[address] [facility] Comment on above: Performed By: #### C RP, LIVER, BMP #### [facility] [address] [place] [address] Dr. Raymundo Rodriguez Lymphocytes/100 WBC (Bld) 20.9 % Normal 20.5-60.0 [facility] Comment on above: Performed By: #### C RP, LIVER, BMP #### [facility] [address] [place] [address] Dr. Raymundo Rodriguez MANUAL DIFF REQ NO Normal [facility] Comment on above: Performed By: #### C RP, LIVER, BMP #### [facility] [address] [place] [address] Dr. Raymundo Rodriguez MCH (RBC) [Entitic mass] 30.7 pg Normal 25.9-34.0 [facility] Comment on above: Performed By: #### C RP, LIVER, BMP #### [facility] [address] [place] [address] Dr. Raymundo Rodriguez MCHC (RBC) [Mass/Vol] 32.9 g/dL Normal 29.9-35.2 [facility] Comment on above: Performed By: #### C RP, LIVER, BMP #### [facility] [address] [place] [address] Dr. Raymundo Rodriguez MCV (RBC) [Entitic vol] 93.5 fL Normal 80.0-94.0 [facility] Comment on above: Performed By: #### C RP, LIVER, BMP #### [facility] [address] [place] [address] Dr. Raymundo Rodriguez MONO # 0.5 103/ul Normal 0.3-0.8 [facility] Comment on above: Performed By: #### C RP, LIVER, BMP #### [facility] [address] [address] [address] Raymundo Rodriguez Monocytes/100 WBC (Bld) 11.2 % Normal 1.7-12.0 [facility] Comment on above: Performed By: #### C RP, LIVER, BMP #### [facility] [address] [address] [address] Ramyundo Rodriguez NEUT # 2.9 103/ul Normal 1.4-6.5 [facility] Comment on above: Performed By: #### C RP, LIVER, BMP #### [facility] [address] [place] [address] Dr. Raymundo Rodriguez Neutrophils/100 WBC (Bld) 65.6 % Normal 43.0-75.0 [facility] Comment on above: Performed By: #### C RP, LIVER, BMP #### [facility] [address] [place] [address] Dr. Raymundo Rodriguez Platelet mean volume (Bld) [Entitic vol] 11.2 fL Normal 9.5-13.5 [facility] Comment on above: Performed By: #### C RP, LIVER, BMP #### [facility] [address] [place] [address] Dr. Raymundo Rodriguez PLT 174 103/ul Normal 150-450 [facility] Comment on above: Performed By: #### C RP, LIVER, BMP #### [facility] [address] [place] [address] Dr. Raymundo Rodriguez RBC 5.24 106/ul Normal 4.70-6.10 [facility] Comment on above: Performed By: #### C RP, LIVER, BMP #### [facility] [address] [place] [address] Dr. Raymundo Rodriguez WBC 4.4 103/ul Normal 4.0-11.0 [facility] Comment on above: Performed By: #### C RP, LIVER, BMP #### [facility] [address] [place] [address] Dr. Raymundo Rodriguez CRPon 09-08-2021 CRP [Mass/Vol] mg/L Normal <=1.[address] [facility] Comment on above: Performed By: #### C RP, LIVER, BMP #### [facility] [address] [place] [address] Dr. Raymundo Rodriguez LIVER PROFILEon 09-08-2021 Albumin [Mass/Vol] 4.0 g/dL Normal 3.4-5.0 [facility] Comment on above: Performed By: #### C RP, LIVER, BMP #### [facility] [address] [place] [address] Dr. Raymundo Rodriguez Albumin/Globulin [Mass ratio] 1.0 {ratio} Normal [facility] Comment on above: Performed By: #### C RP, LIVER, BMP #### [facility] [address] [place] [address] Dr. Raymundo Rodriguez ALP [Catalytic activity/Vol] 104 U/L Normal 46-116 [facility] Comment on above: Performed By: #### C RP, LIVER, BMP #### [facility] [address] [place] [address] Dr. Raymundo Rodriguez ALT [Catalytic activity/Vol] 33 U/L Normal 16-63 [facility] Comment on above: Performed By: #### C RP, LIVER, BMP #### [facility] [address] [place] [address] Dr. Raymundo Rodriguez AST [Catalytic activity/Vol] 19 U/L Normal 15-37 [facility] Comment on above: Performed By: #### C RP, LIVER, BMP #### [facility] [address] [place] [address] Dr. Raymundo Rodriguez BILI, CONJUGATED 0.1 mg/dL Normal 0.0-0.[address] [facility] Comment on above: Performed By: #### C RP, LIVER, BMP #### [facility] [address] [place] [address] Dr. Raymundo Rodriguez Bilirubin [Mass/Vol] 0.4 mg/dL Normal 0.2-1.0 [facility] Comment on above: Performed By: #### C RP, LIVER, BMP #### [facility] [address] [place] [address] Dr. Raymundo Rodriguez Globulin (S) [Mass/Vol] 3.9 g/dL Normal T [facility] Comment on above: Performed By: #### C RP, LIVER, BMP #### [facility] [address] [place] [address] Dr. Raymundo Rodriguez Protein [Mass/Vol] 7.9 g/dL Normal 6.4-8.2 [facility] Comment on above: Performed By: #### C RP, LIVER, BMP #### [facility] [address] [address] [address] Raymundo Rodriguez PROF CHEM 8 (BAS METB)on Anion gap [Moles/Vol] 12.9 mmol/L Normal [facility] Comment on above: Performed By: #### C RP, LIVER, BMP #### [facility] [address] [place] [address] Dr. Raymundo Rodriguez Calcium [Mass/Vol] 9.1 mg/dL Normal 8.5-10.1 [facility] Comment on above: Performed By: #### C RP, LIVER, BMP #### [facility] [address] [place] [address] Dr. Raymundo Rodriguez Chloride [Moles/Vol] 106 mmol/L Normal 98-107 [facility] Comment on above: Performed By: #### C RP, LIVER, BMP #### [facility] [address] [place] [address] Dr. Raymundo Rodriguez CO2 [Moles/Vol] 27.9 mmol/L Normal 21.0-32.[address] [facility] Comment on above: Performed By: #### C RP, LIVER, BMP #### [facility] [address] [place] [address] Dr. Raymundo Rodriguez Creatinine [Mass/Vol] 1.20 mg/dL Normal 0.70-1.30 [facility] Comment on above: Performed By: #### C RP, LIVER, BMP #### [facility] [address] [place] [address] Dr. Raymundo Rodriguez EGFR-AF ZIMBABWEAN >60 Normal >=60 [facility] Comment on above: Performed By: #### C RP, LIVER, BMP #### [facility] [address] [address] [address] Raymundo Rodriguez EGFR-NON AF ZIMBABWEAN >60 Normal >=60 [facility] Comment on above: Performed By: #### C RP, LIVER, BMP #### [facility] [address] [address] [address] Raymundo Rodriguez Glucose [Mass/Vol] 64 mg/dL Critically low 74-106 [facility] Comment on above: Performed By: #### C RP, LIVER, BMP #### [facility] [address] [address] [address] Raymundo Rodriguez Potassium [Moles/Vol] 3.8 mmol/L Normal 3.5-5.1 [facility] Comment on above: Performed By: #### C RP, LIVER, BMP #### [facility] [address] [place] [address] Dr. Raymundo Rodriguez Sodium [Moles/Vol] 143 mmol/L Normal 136-145 [facility] Comment on above: Performed By: #### C RP, LIVER, BMP #### [facility] [address] [address] [address] Raymundo Rodriguez Urea nitrogen [Mass/Vol] 13.0 mg/dL Normal 6.4-19.3 [facility] Comment on above: Performed By: #### C RP, LIVER, BMP #### [facility] [address] [place] [address] Dr. Raymundo Rodriguze Urea nitrogen/Creatinine [Mass ratio] 10.8 mg/mg Normal [facility] Comment on above: Performed By: #### C RP, LIVER, BMP #### [facility] [address] [place] [address] Dr. Raymundo Rodriguez SED RATE [facility] 2021 SED RATE 6 mm/hr Normal <=15 [facility] Comment on above: Performed By: #### C RP, LIVER, BMP #### [facility] [address] [place] [address] Dr. Raymundo Rodriguez BILIRUBIN CONJUGATED (DIRECT )on 07-07-2021 BILI, CONJUGATED 0.1 mg/dL Normal 0.0-0.[address] [facility] Comment on above: Performed By: #### C RP, LIVER, BMP #### [facility] [address] [place] [address] Dr. Raymundo Rodriguez CBC AUTO DIFFon 07-07-2021 BASO # 0.0 103/ul Normal 0.0-0.1 [facility] Comment on above: Performed By: #### C BC #### [facility] [address] [place] [address] Dr. Raymundo Rodriguez Basophils/100 WBC (Bld) 0.4 % Normal 0.2-2.0 [facility] Comment on above: Performed By: #### C BC #### [facility] [address] [place] [address] Dr. Raymundo Rodriguez EO # 0.1 103/ul Normal 0.0-0.7 [facility] Comment on above: Performed By: #### C BC #### [facility] [address] [place] [address] Dr. Raymundo Rodriguez Eosinophils/100 WBC (Bld) 1.1 % Normal 0.9-7.0 [facility] Comment on above: Performed By: #### C BC #### [facility] [address] [place] [address] Dr. Raymundo Rodriguez Erythrocyte distribution width (RBC) [Ratio] 12.2 % Normal 11.0-15.0 [facility] Comment on above: Performed By: #### C BC #### [facility] [address] [place] [address] Dr. Raymundo Rodriguez Hematocrit (Bld) [Volume fraction] 46.7 % Normal 42.0-54.0 [facility] Comment on above: Performed By: #### C BC #### [facility] [address] [place] [address] Dr. Raymundo Rodriguez Hemoglobin (Bld) [Mass/Vol] 15.5 g/dL Normal 14.0-18.0 [facility] Comment on above: Performed By: #### C BC #### [facility] [address] [place] [address] Dr. Raymundo Rodriguez IG # 0.01 10e3/ul Normal 0.00-0.03 [facility] Comment on above: Performed By: #### C BC #### [facility] [address] [place] [address] Dr. Raymundo Rodriguez IG % 0.2 % Normal 0.0-0.5 [facility] Comment on above: Performed By: #### C BC #### [facility] [address] [place] [address] Dr. Raymundo Rodriguez LYMPH # 0.9 103/ul Critically low 1.2-3.[address] [facility] Comment on above: Performed By: #### C BC #### [facility] [address] [place] [address] Dr. Raymundo Rodriguez Lymphocytes/100 WBC (Bld) 17.2 % Critically low 20.5-60.0 [facility] Comment on above: Performed By: #### C BC #### [facility] [address] [place] [address] Dr. Raymundo Rodriguez MANUAL DIFF REQ NO Normal [facility] Comment on above: Performed By: #### C BC #### [facility] [address] [place] [address] Dr. Raymundo Rodriguez MCH (RBC) [Entitic mass] 30.7 pg Normal 25.9-34.0 [facility] Comment on above: Performed By: #### C BC #### [facility] [address] [place] [address] Dr. Raymundo Rodriguez MCHC (RBC) [Mass/Vol] 33.2 g/dL Normal 29.9-35.2 [facility] Comment on above: Performed By: #### C BC #### [facility] [address] [place] [address] Dr. Raymundo Rodriguez MCV (RBC) [Entitic vol] 92.5 fL Normal 80.0-94.0 [facility] Comment on above: Performed By: #### C BC #### [facility] [address] [place] [address] Dr. Raymundo Rodriguez MONO # 0.5 103/ul Normal 0.3-0.8 [facility] Comment on above: Performed By: #### C BC #### [facility] [address] [place] [address] Dr. Raymundo Rodriguez Monocytes/100 WBC (Bld) 9.1 % Normal 1.7-12.0 [facility] Comment on above: Performed By: #### C BC #### [facility] [address] [place] [address] Dr. Raymundo Rodriguez NEUT # 3.9 103/ul Normal 1.4-6.5 [facility] Comment on above: Performed By: #### C BC #### [facility] [address] [place] [address] Dr. Raymundo Rodriguez Neutrophils/100 WBC (Bld) 72.0 % Normal 43.0-75.0 [facility] Comment on above: Performed By: #### C BC #### [facility] [address] [place] [address] Dr. Raymundo Rodriguez Platelet mean volume (Bld) [Entitic vol] 11.2 fL Normal 9.5-13.5 [facility] Comment on above: Performed By: #### C BC #### [facility] [address] [place] [address] Dr. Raymundo Rodriguez PLT 179 103/ul Normal 150-450 [facility] Comment on above: Performed By: #### C BC #### [facility] [address] [place] [address] Dr. Raymundo Rodriguez RBC 5.05 106/ul Normal 4.70-6.10 [facility] Comment on above: Performed By: #### C BC #### [facility] [address] [place] [address] Dr. Raymundo Rodriguez WBC 5.4 103/ul Normal 4.0-11.0 [facility] Comment on above: Performed By: #### C BC #### [facility] [address] [place] [address] Dr. Raymundo Rodriguez CRPon 07-07-2021 CRP [Mass/Vol] mg/L Normal <=1.[address] [facility] Comment on above: Performed By: #### C RP, LIVER, BMP #### [facility] [address] [address] [address] Raymundo Rodriguez PROF 14(COMP METB)on 022 Albumin [Mass/Vol] 3.6 g/dL Normal 3.4-5.0 [facility] Comment on above: Performed By: #### C RP, LIVER, BMP #### [facility] [address] [address] [address] Raymundo Rodriguez Albumin/Globulin [Mass ratio] 1.0 {ratio} Normal [facility] Comment on above: Performed By: #### C RP, LIVER, BMP #### [facility] [address] [place] [address] Dr. Raymundo Rodriguez ALP [Catalytic activity/Vol] 97 U/L Normal 46-116 [facility] Comment on above: Performed By: #### C RP, LIVER, BMP #### [facility] [address] [place] [address] Dr. Raymundo Rodriguez ALT [Catalytic activity/Vol] 26 U/L Normal 16-63 [facility] Comment on above: Performed By: #### C RP, LIVER, BMP #### [facility] [address] [place] [address] Dr. Raymundo Rodriguez Anion gap [Moles/Vol] 12.4 mmol/L Normal [facility] Comment on above: Performed By: #### C RP, LIVER, BMP #### [facility] [address] [place] [address] Dr. Raymundo Rodriguez AST [Catalytic activity/Vol] 17 U/L Normal 15-37 [facility] Comment on above: Performed By: #### C RP, LIVER, BMP #### [facility] [address] [place] [address] Dr. Raymundo Rodriguez Bilirubin [Mass/Vol] 0.3 mg/dL Normal 0.2-1.3 [facility] Comment on above: Performed By: #### C RP, LIVER, BMP #### [facility] [address] [place] [address] Dr. Raymundo Rodriguez Calcium [Mass/Vol] 8.4 mg/dL Critically low 8.5-10.1 [facility] Comment on above: Performed By: #### C RP, LIVER, BMP #### [facility] [address] [address] [address] Raymundo Rodriguez Chloride [Moles/Vol] 104 mmol/L Normal 98-107 [facility] Comment on above: Performed By: #### C RP, LIVER, BMP #### [facility] [address] [address] [address] Raymundo Rodriguez CO2 [Moles/Vol] 29.9 mmol/L Normal 22.0-30.[address] [facility] Comment on above: Performed By: #### C RP, LIVER, BMP #### [facility] [address] [place] [address] Dr. Raymundo Rodriguez Creatinine [Mass/Vol] 1.16 mg/dL Normal 0.66-1.25 [facility] Comment on above: Performed By: #### C RP, LIVER, BMP #### [facility] [address] [place] [address] Dr. Raymundo Rodriguez EGFR-AF ZIMBABWEAN >60 Normal >=[address] [facility] Comment on above: Performed By: #### C RP, LIVER, BMP #### [facility] [address] [place] [address] Dr. Raymundo Rodriguez EGFR-NON AF ZIMBABWEAN >60 Normal >=60 [facility] Comment on above: Performed By: #### C RP, LIVER, BMP #### [facility] [address] [place] [address] Dr. Raymundo Rodriguez Globulin (S) [Mass/Vol] 3.6 g/dL Normal [facility] Comment on above: Performed By: #### C RP, LIVER, BMP #### [facility] [address] [address] [address] Raymundo Rodriguez Glucose [Mass/Vol] 88 mg/dL Normal 74-106 [facility] Comment on above: Performed By: #### C RP, LIVER, BMP #### [facility] [address] [address] [address] Raymundo Rodriguez Potassium [Moles/Vol] 4.3 mmol/L Normal 3.4-5.0 [facility] Comment on above: Performed By: #### C RP, LIVER, BMP #### [facility] [address] [place] [address] Dr. Raymundo Rodriguez Protein [Mass/Vol] 7.2 g/dL Normal 6.1-8.2 [facility] Comment on above: Performed By: #### C RP, LIVER, BMP #### [facility] [address] [address] [address] Raymundo Rodriguez Sodium [Moles/Vol] 142 mmol/L Normal 137-145 [facility] Comment on above: Performed By: #### C RP, LIVER, BMP #### [facility] [address] [address] [address] Raymundo Rodriguez Urea nitrogen [Mass/Vol] 15.0 mg/dL Normal 6.4-19.3 [facility] Comment on above: Performed By: #### C RP, LIVER, BMP #### [facility] [address] [address] [address] Raymundo Rodriguez Urea nitrogen/Creatinine [Mass ratio] 12.9 mg/mg Normal [facility] Comment on above: Performed By: #### C RP, LIVER, BMP #### [facility] [address] [place] [address] Dr. Raymundo Rodriguez SED RATE [facility] 2021 SED RATE 5 mm/hr Normal <=15 [facility] Comment on above: Performed By: #### C RP, LIVER, BMP #### [facility] [address] [place] [address] Dr. Raymundo Rodriguez Encounters Encounter Date Encounter Type Care Provider Facility Start: 03-30-2023 End: 03-30-2023 ambulatory Garrett Dominguez Jr Facility:[facility] Start: 03-30-2023 End: 03-30-2023 ambulatory PHYSICIAN JOSE ALEXANDRE [facility] Work Phone: Start: 03-30-2023 End: 03-30-2023 Departed Referred PHYSICIAN NO [facility] Work Phone: Start: 03-29-2023 End: 03-29-2023 ambulatory PHYSICIAN NO FAMILY Facility:[facility] Start: 03-29-2023 End: 03-29-2023 ambulatory PHYSICIAN NO [facility] Work Phone: Start: 03-29-2023 End: 03-29-2023 Departed Referred PHYSICIAN NO [facility] [address] Work Phone: Start: 03-28-2023 End: 03-28-2023 ambulatory PHYSICIAN NO FAMILY Facility:[facility] Start: 03-28-2023 End: 03-28-2023 ambulatory PHYSICIAN NO [facility] Work Phone: Start: 03-28-2023 End: 03-28-2023 Departed Referred PHYSICIAN NO [facility] [address] Work Phone: Start: 03-26-2023 End: 03-27-2023 ambulatory None Provider Facility:[facility] Start: 03-15-2023 End: 03-16-2023 ambulatory [facility] Start: 03-15-2023 End: 03-15-2023 Subsequent hospital visit by physician Josi Mariano MD Work Phone: [facility] Comment on above: Arrived Start: 01-26-2023 End: 01-26-2023 ambulatory JOSI Samayoa [facility] Start: 06-07-2022 End: 06-07-[address] DOCTOR WILKINS Facility:[facility] Start: 05-12-2022 End: 05-12-2022 ambulatory None Provider Facility:[facility] Start: 05-10-2022 End: 05-10-2022 ambulatory JOSI Samayoa [facility] Start: 03-15-2022 End: 03-16-[address] DOCTOR WILKINS Facility:[facility] Start: 01-12-2022 End: 01-12-[address] DOCTOR WILKINS Facility:[facility] Start: 11-10-2021 End: 11-10-[address] DOCTOR WILKINS Facility:[facility] Start: 09-08-2021 End: 09-08-[address] DOCTOR WILKINS Facility:[facility] Start: 07-07-2021 End: 07-07-[address] DOCTOR WILKINS Facility:[facility] Procedures Date Procedure Procedure Detail Performing Clinician Start: 03-28-2023 Plain chest X-ray PHYSI MONTY NO FAMILY Plan of Treatment Date Care Activity Detail Author Start: 11-17-2022 FLU (#1) FLU (#1) [facility] Start: 2020 Hearing Screening Hearing Screening [facility] Start: 2020 PATH Education 18+ Years PATH Educat ion 18+ Years [facility] Start: 2018 MenB (1 of 2 - MenB 2-Dose Series Bexsero) MenB (1 of 2 - MenB 2-Dose Series Bexsero) [facility] Start: 2017 PATH Education 15-17 + Years PATH Education 15-17+ Years [facility] Start: 2017 Vision Screening Vision Screening [facility] Start: 2014 PATH Education 12-14 + Years PATH Education 12-14+ Years [facility] Start: 2014 PATH Transitional Assessment PATH Transitional Assessment [facility] Start: 2013 HPV (1 - Male 2-dose series) HPV (1 - Male 2-dose series) [facility] Start: 2009 Tetanus Diphtheria a nd Pertussis Vaccines (1 - Tdap) Tetanus Diphtheria and Pertussis Vaccines (1 - Tdap) [facility] Start: 2007 COVID-19 (#1) COVID-19 (#1) [facility] Start: 2003 MMR (1 of 1 - Standa rd series) MMR (1 of 1 - Standard series) [facility] Start: 2003 Varicella (1 of 2 - 2-dose childhood series) Varicella (1 of 2 - 2-dose childhood series) [facility] Start: 2002 Hepatitis B (1 of 3 - 3-dose series) Hepatitis B (1 of 3 - 3-dose series) [facility] End: 03-15-2023 Genetic Sendout Genetic Sendout Lab Routine For lab collect this frequency defaults to the next routine lab draw time. Routine times: 0600; 1100; 1400; 1900; 2200 for 1 Occurrences starting 03/15/2023 until 03/15/2023 [facility] Work Phone: Comment on above: For lab collect this frequency defaults to the next routine lab draw time. Routine times: 0600; 1100; 1400; 1900; 2200 for 1 Occurrences starting 03/15/2023 until 03/15/2023 Genetic Sendout: Genetic Sendout : Lab Routine 03/15/2023 12:00 PM EST [facility] Payers Date Payer Category Payer Self-pay 2015 Private Health Insurance [employer] A ETNA CHOICE POS [id number] 2015-Present [address] [place] [address] [id number] 2002 Unknown [id number]. 2.593 2002 Unknown [id number] [id number]. 2.593 2002 Unknown [id number] 2.16.840.1.173715.3.579. 2.593 2002 Unknown [id number] 2.16.840.1.945845.3.579. 2.593 2002 Unknown [id number] 2.16.840.1.653380.3.579. 2.593 2002 Unknown [id number] 2.16.840.1.671577.3.579. 2.593 2002 Unknown [id number] 2.16.840.1.383591.3.579. 2.479 2002 Unknown [id number] 2.16.840.1.217609.3.579. 2.479 2002 Unknown [id number] 2.16.840.1.684006.3.579. 2.718 1974 Unknown [id number] 2.16.840.1.635173.3.579. 2.479 1959 Private Health Insurance [id number] Private Health Insurance [employer] [id number] Unknown [id number] [id number]. 2.531 Unknown [id number] 2.16.840.1.575411.3.579. 2.531 Unknown [id number] 2.16.840.1.798011.3.579. 2.531 Social History Date Type Detail Facility [facility] Start: 01-23-2019 Tobacco use and exposure Smokeless tobacco non-user [facility] Start: 01-26-2023 Alcohol intake Current non-dr resistance brazer of alcohol (finding) [facility] Start: 01-26-2023 Alcohol intake [facility] Start: 01-26-2023 Tobacco use panel [facility] Start: 2002 Sex Assigned At Not on file A [facility] Start: 2002 Sex Assigned At Male F [facility] Procedure note 03-30-2023 Note Date & Type Note Facility 03-30-2023 Procedure note [facility] Clinical Note 05-12-2022 Note Date & Type Note Facility 05-12-2022 Note Patient Education Ma terials Follows: Earwax Buildup, Adult The ears produce a substance called earwax that helps keep bacteria out of the ear and protects the skin in the ear canal. Occasionally, earwax can build up in the ear and cause discomfort or hearing loss. What are the causes? This condition is caused by a buildup of earwax. Ear canals are self-cleaning. Ear wax is made in the outer part of the ear canal and generally falls out in small amounts over time. When the self-cleaning mechanism is not working, earwax builds up and can cause decreased hearing and discomfort. Attempting to clean ears with cotton swabs can push the earwax deep into the ear canal and cause decreased hearing and pain. What increases the risk? This condition is more likely to develop in people who: ? Clean their ears often with cotton swabs. ? Pick at their ears. ? Use earplugs or in-ear headphones often, or wear hearing aids. The following factors may also make you more likely to develop this condition: ? Being male. ? Being of older age. ? Naturally producing more earwax. ? Having narrow ear canals. ? Having earwax that is overly thick or sticky. ? Having excess hair in the ear canal. ? Having eczema. ? Being dehydrated. What are the signs or symptoms? Symptoms of this condition include: ? Reduced or muffled hearing. ? A feeling of fullness in the ear or feeling that the ear is plugged. ? Fluid coming from the ear. ? Ear pain or an itchy ear. ? Ringing in the ear. ? Coughing. ? Balance problems. ? An obvious piece of earwax that can be seen inside the ear canal. How is this diagnosed? This condition may be diagnosed based on: ? Your symptoms. ? Your medical history. ? An ear exam. During the exam, your health care provider will look into your ear with an instrument called an otoscope. You may have tests, including a hearing test. How is this treated? This condition may be treated by: ? Using ear drops to soften the earwax. ? Having the earwax removed by a health care provider. The health care provider may: ? Flush the ear with water. ? Use an instrument that has a loop on the end (curette). ? Use a suction device. ? Having surgery to remove the wax buildup. This may be done in severe cases. Follow these instructions at home: ? Take rxox-feh-lsxkses and prescription medicines only as told by your health care provider. ? Do not put any objects, including cotton swabs, into your ear. You can clean the opening of your ear canal with a washcloth or facial tissue. ? Follow instructions from your health care provider about cleaning your ears. Do not overclean your ears. ? Drink enough fluid to keep your urine pale yellow. This will help to thin the earwax. ? Keep all follow-up visits as told. If earwax builds up in your ears often or if you use hearing aids, consider seeing your health care provider for routine, preventive ear cleanings. Ask your health care provider how often you should schedule your cleanings. ? If you have hearing aids, clean them according to instructions from the manager of school and your health care provider. Contact a health care provider if: ? You have ear pain. ? You develop a fever. ? You have pus or other fluid coming from your ear. ? You have hearing loss. ? You have ringing in your ears that does not go away. ? You feel like the room is spinning (vertigo). ? Your symptoms do not improve with treatment. Get help right away if: ? You have bleeding from the affected ear. ? You have severe ear pain. Summary ? Earwax can build up in the ear and cause discomfort or hearing loss. ? The most common symptoms of this condition include reduced or muffled hearing, a feeling of fullness in the ear, or feeling that the ear is plugged. ? This condition may be diagnosed based on your symptoms, your medical history, and an ear exam. ? This condition may be treated by using ear drops to soften the earwax or by having the earwax removed by a health care provider. ? Do not put any objects, including cotton swabs, into your ear. You can clean the opening of your ear canal with a washcloth or facial tissue. This information is not intended to replace advice given to you by your health care provider. Make sure you discuss any questions you have with your health care provider. Document Revised: 06/22/2020 Document Reviewed: 06/22/2020 Elsevier Patient Education ? 2021 [employer] [facility] Evaluation note Note Date & Type Note Facility Evaluation note No assessment information availa [facility] Work Phone: Summary Purpose Family History No Family History Records FoundNo Family History Records FoundNo Family History Records FoundNo Family History Records FoundNo Family History Records Found Advance Directives No Advanced Directives Records FoundNo Advanced Directives Records FoundNo Advanced Directives Records FoundNo Advanced Directives Records FoundNo Advanced Directives Records Found Chief Complaint and Reason for Visit Chief Complaint [place] police/ff pre emp pe Chief Complaint [place] police/ff pre emp pe pre emp labs Chief Complaint [place] police/ff pre emp pe pre emp labs FF/Police pre emp [facility] Additional Source Comments (unrecognized sect ion and content) No Status Records FoundNo Status Records FoundNo Status Records FoundNo Status Records FoundNo Status Records Found INFORMATION SOURCE (unrecogn ized section and content) DATE CREATED AUTHOR 06/24/2022 [facility] DATE CREATED AUTHOR AUTHOR'S ORGANIZ ATION 01/28/2023 [facility] DATE CREATED AUTHOR AUTHOR'S ORGANIZ ATION 03/20/2023 [facility] DATE CREATED AUTHOR AUTHOR'S ORGANIZ ATION 03/27/2023 [facility] DATE CREATED AUTHOR AUTHOR'S ORGANIZ ATION 04/01/2023 [facility] Care Teams (unrecognized sec tion and content) Applications Programmer Relationship Specialty Start Date End Date Juan Srinivasan MD [address] [place], [place] [address] [place] [address] [place] [address] PCP - General Pediatrics 05/04/15 Team Status: Active Member Role Status Dates PHYSICIAN NO FAMILY Primary Care Provider Active Team Status: Inactive Member Role Status Dates PHYSICIAN NO FAMILY Primary Care Provider Active Garrett Dominguez Jr, DO Attending Provider Active Team Status: Inactive Member Role Status Dates PHYSICIAN NO FAMILY Primary Care Provider Active Chad Wren DO [facility] Attending Provider Active Team Status: Inactive Member Role Status Dates Garrett Dominguez Jr, DO Attending Provider Active Josué Kimble MD Referring Provider Active PHYSICIAN NO FAMILY Primary Care Provider Active Goals (unrecognized section and content) Goals may be documented in a n alternate sectionGoals may be documented in an alternate sectionGoals may be documented in an alternate section FOR RECORDS PERTAINING TO PATIENTS WHO ARE OR HAVE BEEN ENROLLED IN A CHEMICAL DEPENDENCY/SUBSTANCEABUSE PROGRAM, SOME INFORMATION MAY BE OMITTED. This clinical summary was aggregated from multiple sources. Caution should be exercised in using it in the provision of clinical care. This summary normalizes information from multiple sources, and as a consequence, information in this document may materially change the coding, format and clinical context of patient data. In addition, data may be omitted in some cases. CLINICAL DECISIONS SHOULD BE BASED ON THE PRIMARY CLINICAL RECORDS. [facility] [employer] [facility]. provides no warranty or guarantee of the accuracy or completeness of information in this document.
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
--- NOTE | 2023-08-29 22:29 | PC.NURSE ---
Pain to left knee, slight swelling to area. Skin to left leg pink and warm and pulses present.
[2023-08-29] MEDS: IBUPROFEN 600 MG TABLET PO (22:50)
[2023-08-29] MEDS: ACETAMINOPHEN 325 MG TABLET 650 MG PO (22:51)
[2023-08-29] MEDS: ADACEL DIPH,PERTUSS(ACELL),TET VAC/PF 0.5 ML ADULT SYRINGE IM (22:51)
== END 2023-08-29 23:43 | disposition home or self-care (01) ==
PROVIDERS: Emergency Provider Emergency Medicine
DX: S83.92XA Sprain of unspecified site of left knee, initial encounter (principal); S70.312A Abrasion, left thigh, initial encounter; S80.212A Abrasion, left knee, initial encounter; S80.12XA Contusion of left lower leg, initial encounter; V27.49XA Other motorcycle driver injured in collision with fixed or stationary object in traffic accident, initial encounter; Z23 Encounter for immunization
CPT/HCPCS: 73552; 73564; 90471; 90715; 99283

== ENCOUNTER 2023-09-28 07:21 | Outpatient (RCR) | payer OTHER, SELFPAY ==
[2023-09-28 12:05] VITALS: BP 138/83; PULSE 89; TEMP 37; O2SAT 98
[2023-09-28] MEDS: INFLIXIMAB DYYB IV (12:20)
[2023-09-28] MEDS: SODIUM CHLORIDE 0.9% IV (12:20)
--- NOTE | 2023-09-28 12:27 | PC.NURSE ---
1205: Pt. to [facility] amb. Seated in recliner. VSS. IV initiated to right AC, see documentation. Pt. tolerated without c/o. Blood drawn from IV for ordered labs. 1220: IV Inflectra initiated at this time. Pt. declines wanting food or beverage.
[2023-09-28 12:39] VITALS: BP 138/83; PULSE 86; TEMP 36.6; O2SAT 98
--- NOTE | 2023-09-28 12:40 | PC.NURSE ---
1235: Pt. tolerating infusion without c/o. VSS. Denies needs.
[2023-09-28 12:48] LABS: Basophils Percent Auto 0.6 % (0.2-2.0); Eosinophils Absolute Auto 0.2 10^3/uL (0.0-0.7); Eosinophils Percent Auto 3.6 % (0.9-7.0); Hematocrit 45.5 % (42.0-54.0); Hemoglobin 15.5 g/dL (14.0-18.0); Immature Granulocytes Abs Auto 0.01 10^3/uL (0.00-0.03); Immature Granulocytes Pct Auto 0.2 % (0.0-0.5); Lymphocytes Absolute Auto 1.5 10^3/uL (1.2-3.8); Lymphocytes Percent Auto 31.6 % (20.5-60.0); Mean Corpuscular HGB Conc 34.1 g/dL (29.9-35.2); Mean Corpuscular Hemoglobin 30.7 pg (25.9-34.0); Mean Corpuscular Volume 90.1 fL (80.0-94.0); Mean Platelet Volume 11.8 fL (9.5-13.5); Monocytes Absolute Auto 0.5 10^3/uL (0.3-0.8); Monocytes Percent Auto 11.3 % (1.7-12.0); Neutrophils Absolute Auto 2.5 10^3/uL (1.4-6.5); Neutrophils Percent Auto 52.7 % (43.0-75.0); Platelet Count 187 10^3/uL (150-450); Red Blood Count 5.05 10^6/uL (4.70-6.10); White Blood Count 4.8 10^3/uL (4.0-11.0)
[2023-09-28 12:50] VITALS: BP 128/90; PULSE 89; O2SAT 99
--- NOTE | 2023-09-28 12:51 | PC.NURSE ---
1250: Pt. without change. VSS. Denies needs or c/o.
[2023-09-28 13:04] VITALS: BP 122/88; PULSE 83; TEMP 36.6; O2SAT 99
[2023-09-28 13:20] VITALS: BP 119/70; PULSE 80; O2SAT 99
--- NOTE | 2023-09-28 13:21 | PC.NURSE ---
1320: Pt. without change. VSS. IV site clear. Denies needs.
--- NOTE | 2023-09-28 14:07 | PC.NURSE ---
Cont.to decline food or drink. Tolerating infusion without c/o.
[2023-09-28 14:12] LABS: Erythrocyte Sedimentation Rate 17 mm/hr (<=15)
[2023-09-28 14:32] LABS: Alanine Aminotransferase 23 U/L (16-63); Albumin Level 3.7 g/dL (3.4-5.0); Alkaline Phosphatase 111 U/L (46-116); Anion Gap 13.8; Aspartate Amino Transferase 11 U/L (15-37); BUN Creatinine Ratio 15.2; Bilirubin Direct 0.1 mg/dL (0.0-0.2); Bilirubin Total 0.2 mg/dL (0.2-1.0); C Reactive Protein <0.50 mg/dL (<=0.50); Carbon Dioxide 27.2 mmol/L (21.0-32.0); Chloride 105 mmol/L (98-107); Estimated GFR (African America >60 (>=60); Estimated GFR (Non-African Ame >60 (>=60); Globulin 3.8 g/dL; Glucose 70 mg/dL (74-106); Sodium 142 mmol/L (136-145); Total Protein 7.5 g/dL (6.4-8.2)
--- NOTE | 2023-09-28 14:47 | PC.NURSE ---
1447: Inflectra infusion maintained and pt. without c/o. IV site clear. Denies needs.
[2023-09-28 14:58] VITALS: BP 117/70; PULSE 91; TEMP 37.3; O2SAT 99
--- NOTE | 2023-09-28 15:03 | PC.NURSE ---
1458: Infusion complete without s&s of adverse reaction. IV d/c'd pressure to site. VSS. 1501: Pt. d/c'd amb. to home.
== END 2023-09-28 16:30 | disposition home or self-care (01) ==
LOC: INF 07:21
PROVIDERS: Visit Provider Pediatrics
DX: K51.90 Ulcerative colitis, unspecified, without complications (principal)
CPT/HCPCS: 36415; 80048; 80076; 85025; 85652; 86140; 96365; 96366; Q5103

== ENCOUNTER 2023-12-07 07:33 | Outpatient (RCR) | payer OTHER, SELFPAY ==
[2023-12-07 12:00] VITALS: BP 110/72; PULSE 72; TEMP 36.4; O2SAT 99
[2023-12-07 12:40] LABS: Basophils Percent Auto 0.7 % (0.2-2.0); Eosinophils Absolute Auto 0.2 10^3/uL (0.0-0.7); Hematocrit 47.6 % (42.0-54.0); Hemoglobin 16.4 g/dL (14.0-18.0); Immature Granulocytes Abs Auto 0.01 10^3/uL (0.00-0.03); Immature Granulocytes Pct Auto 0.2 % (0.0-0.5); Lymphocytes Absolute Auto 1.7 10^3/uL (1.2-3.8); Lymphocytes Percent Auto 29.2 % (20.5-60.0); Mean Corpuscular HGB Conc 34.5 g/dL (29.9-35.2); Mean Corpuscular Hemoglobin 30.7 pg (25.9-34.0); Mean Platelet Volume 11.7 fL (9.5-13.5); Monocytes Absolute Auto 0.6 10^3/uL (0.3-0.8); Monocytes Percent Auto 10.7 % (1.7-12.0); Neutrophils Absolute Auto 3.1 10^3/uL (1.4-6.5); Neutrophils Percent Auto 55.2 % (43.0-75.0); Platelet Count 222 10^3/uL (150-450); Red Blood Count 5.35 10^6/uL (4.70-6.10); Red Cell Distribution Width 11.7 % (11.0-15.0); White Blood Count 5.7 10^3/uL (4.0-11.0)
[2023-12-07] MEDS: SODIUM CHLORIDE 0.9% IV (12:42)
[2023-12-07] MEDS: INFLIXIMAB DYYB IV (12:42)
[2023-12-07 12:52] LABS: Anion Gap 9.5; BUN Creatinine Ratio 12.1; Calcium 9.1 mg/dL (8.5-10.1); Carbon Dioxide 30.6 mmol/L (21.0-32.0); Chloride 103 mmol/L (98-107); Estimated GFR (African America >60 (>=60); Estimated GFR (Non-African Ame >60 (>=60); Glucose 90 mg/dL (74-106); Potassium 4.1 mmol/L (3.5-5.1); Sodium 139 mmol/L (136-145)
[2023-12-07 12:53] LABS: Erythrocyte Sedimentation Rate 15 mm/hr (<=15)
[2023-12-07 12:55] LABS: Alanine Aminotransferase 32 U/L (16-63); Albumin Level 3.8 g/dL (3.4-5.0); Alkaline Phosphatase 84 U/L (46-116); Aspartate Amino Transferase 18 U/L (15-37); Bilirubin Direct 0.1 mg/dL (0.0-0.2); Bilirubin Total 0.7 mg/dL (0.2-1.0); Globulin 3.8 g/dL; Total Protein 7.6 g/dL (6.4-8.2)
[2023-12-07 13:01] LABS: C Reactive Protein <0.50 mg/dL (<=0.50)
--- NOTE | 2023-12-19 07:56 | PC.NURSE ---
Tolerated infusion without any issues. see mar for titration
== END 2023-12-17 23:59 | disposition home or self-care (01) ==
LOC: INF 07:33
DX: K51.00 Ulcerative (chronic) pancolitis without complications (principal)
CPT/HCPCS: 36415; 80048; 80053; 80076; 85025; 85652; 86140; 96365; 96366; Q5103

== ENCOUNTER 2024-02-13 07:39 | Outpatient (RCR) | payer OTHER, SELFPAY ==
[2024-02-13 11:44] VITALS: PULSE 96; TEMP 36.7; O2SAT 98
[2024-02-13 12:13] LABS: Basophils Percent Auto 0.7 % (0.2-2.0); Eosinophils Absolute Auto 0.2 10^3/uL (0.0-0.7); Eosinophils Percent Auto 3.3 % (0.9-7.0); Hematocrit 44.6 % (42.0-54.0); Hemoglobin 14.8 g/dL (14.0-18.0); Immature Granulocytes Abs Auto 0.01 10^3/uL (0.00-0.03); Immature Granulocytes Pct Auto 0.2 % (0.0-0.5); Lymphocytes Absolute Auto 1.4 10^3/uL (1.2-3.8); Lymphocytes Percent Auto 30.4 % (20.5-60.0); Mean Corpuscular HGB Conc 33.2 g/dL (29.9-35.2); Mean Corpuscular Hemoglobin 30.2 pg (25.9-34.0); Mean Platelet Volume 11.2 fL (9.5-13.5); Monocytes Absolute Auto 0.5 10^3/uL (0.3-0.8); Monocytes Percent Auto 10.8 % (1.7-12.0); Neutrophils Absolute Auto 2.5 10^3/uL (1.4-6.5); Neutrophils Percent Auto 54.6 % (43.0-75.0); Platelet Count 192 10^3/uL (150-450); Red Cell Distribution Width 11.9 % (11.0-15.0); White Blood Count 4.5 10^3/uL (4.0-11.0)
[2024-02-13] MEDS: SODIUM CHLORIDE 0.9% IV (12:13)
[2024-02-13] MEDS: INFLIXIMAB DYYB IV (12:13)
[2024-02-13 12:26] LABS: Erythrocyte Sedimentation Rate 5 mm/hr (<=15)
[2024-02-13 12:34] LABS: Alanine Aminotransferase 29 U/L (16-63); Albumin Globulin Ratio 0.9; Albumin Level 3.2 g/dL (3.4-5.0); Alkaline Phosphatase 90 U/L (46-116); Anion Gap 12.6; Aspartate Amino Transferase 12 U/L (15-37); BUN Creatinine Ratio 9.5; Bilirubin Direct 0.1 mg/dL (0.0-0.2); Bilirubin Total 0.4 mg/dL (0.2-1.0); Calcium 9.1 mg/dL (8.5-10.1); Chloride 106 mmol/L (98-107); Estimated GFR (African America >60 (>=60 mL/min/1.73m^2); Estimated GFR (Non-African Ame >60 (>=60 mL/min/1.73m^2); Globulin 3.5 g/dL; Glucose 92 mg/dL (74-106); Potassium 3.6 mmol/L (3.5-5.1); Sodium 143 mmol/L (136-145); Total Protein 6.7 g/dL (6.4-8.2)
[2024-02-13 12:39] LABS: C Reactive Protein <0.50 mg/dL (<=0.50)
== END 2024-02-13 14:18 | disposition home or self-care (01) ==
LOC: INF 07:39
PROVIDERS: Visit Provider Pediatrics
DX: K51.00 Ulcerative (chronic) pancolitis without complications (principal)
CPT/HCPCS: 36415; 80048; 80076; 85025; 85652; 86140; 96365; 96366; Q5103

== ENCOUNTER 2024-12-22 09:11 | Outpatient (OUT) | payer OTHER, SELFPAY ==
--- OUTSIDE RECORDS SUMMARY | 2024-12-22 09:29 | XMS_ITS | CCD ---
Author Organization [facility] Care Team Providers Care Linux Architect Name Role Phone MISC, DOCTOR Admitting Unavailable MISC, DOCTOR Consulting Unavailable MISC, DOCTOR Attending Unavailable REQUEST, DR NONE LISTED Primary Care Unavaila ble MISC, DOCTOR Admitting Unavailable MISC, DOCTOR Consulting Unavailable MISC, DOCTOR Attending Unavailable REQUEST, NONE LISTED Primary Care Unavaila ble MISC, DOCTOR Admitting Unavailable MISC, DR BELLA Consulting Unavailable [...] Unavaila ble MISC, DOCTOR Admitting Unavailable MISC, DR BELLA Consulting Unavailable MISC, DOCTOR Attending Unavailable REQUEST, NONE LISTED Primary Care Unavaila ble Juan Pierre MD Primary Care Provider [phone] Provider, None Primary Care Unavailable Shraddha PA-C, Virginia E Admitting Unavailable Shraddha PA-C, Virginia E Attending Unavailable Provider, None Primary Care Unavailable NO FAMILY, PHYSICIAN Primary Care Provider Unava ilable DO Garrett Dominguez Jr Attending Provider DO Chad Wren Attending Provider MD Josué Kimble Referring Provider NO FAMILY, PHYSICIAN Primary Care Unavailable Chad Wren Attending Unavailable Chad Wren Admitting Unavailable NO FAMILY, PHYSICIAN Primary Care Unavailable Garrett Dominguez Jr Attending Unavailable Garrett Dominguez Jr Admitting Unavailable Garrett Dominguez Jr Admitting Unavailable Josué Kimble Referring Unavail able NO FAMILY, PHYSICIAN Primary Care Unavailable Garrett Dominguez Jr Attending Unavailable Juan Pierre MD Primary Care Provider JOSI MARIANO Attending Unavailable REFERRED, SELF Referring Unavailable JUAN PIERRE Primary Care Unavailable JOSI MARIANO Attending Unavailable REFERRED, SELF Referring Unavailable JUAN PIERRE Primary Care Unavailable JOSI MARIANO Attending Unavailable JOSI MARIANO Referring Unavailable JUAN PIERRE Primary Care Unavailable Allergies Allergy Classification Reported Allergen(s) Allergy Type Date of Onset Reaction(s) Facility (1 source) No Known Medication Allergies; Translations: [No Known Medication Allergies] Propensity to adverse reactions to drug (disorder) Repository Medications Current Medications Medication Drug Class(es) Dates Sig (Normalized) Sig (Original) inFLIXimab-dyyb 100 mg injection (2 sources) Tumor Necrosis Factor Yuri Start: 07-29-2024 inFLIXimab-dyyb (INFLECTRA) 100 MG SOLR injection 700mg IV Infusion every 8 weeks 7 Each 5 07/29/2024 Active Start: 03-29-2021 inFLIXimab-dyy b (INFLECTRA) 100 MG SOLR injection 400mg IV Infusion every 8 weeks 4 Each 5 03/29/2021 Active Problems Active Problems Problem Classification Problem Date Documented Date Episodic/Chronic Deficiency and other anemia (2 sources) Iron deficiency anemia due to blood loss; Translations: [Iron deficiency anemia secondary to blood loss (chronic)] Onset: 05-05-2015 Resolved: 04-24-2016 04-24-2016 Chronic Immunity disorders (3 sources) Immunosuppression; Translations: [Immunodeficiency, unspecified] Onset: 11-04-2015 11-04-2015 Chronic Noninfectious gastroenteritis (3 sources) Colitis; Translations: [Noninfective gastroenteritis and colitis, unspecified] Onset: 05-06-2015 Resolved: 04-24-2016 04-24-2016 Episodic Regional enteritis and ulcerative colitis (7 sources) Ulcerative (chronic) pancolitis without complications; Translations: [Ulcerative pancolitis] Onset: 05-13-2015 Chronic Past or Other Problems Problem Classification Problem Date Documented Da te Episodic/Chronic Abdominal pain (2 sources) Abdominal pain; Translations: [Unspecified abdominal pain] Onset: 05-05-2015 Resolved: 05-05-2015 05-05-2015 Episodic Gastrointestinal hemorrhage (4 sources) Hematochezia; Translations: [Melena] Onset: 05-05-2015 Resolved: 05-09-2015 05-09-2015 Episodic Results Test Name Value Interpretation Reference Range Facility BASIC METABOLIC PANELon 10-17 Calcium [Mass/Vol] 9.5 mg/dL Normal 7.6-11.0 [facility] Comment on above: Order Comment: Relea se to patient->Automatic Result Comment: Veri fied By: [id number] Chloride [Moles/Vol] 104 mmol/L Normal 96-108 [facility] Comment on above: Order Comment: Relea se to patient->Automatic Result Comment: Veri fied By: [id number] CO2 [Moles/Vol] 26.6 mmol/L Normal 22.0-29.0 [facility] Comment on above: Order Comment: Relea se to patient->Automatic Result Comment: Veri fied By: [id number] Creatinine [Mass/Vol] 1.08 mg/dL Normal 0.70-1.20 [facility] Comment on above: Order Comment: Relea se to patient->Automatic Result Comment: Veri fied By: [id number] GFR/1.73 sq M.predicted among non-blacks MDRD (S/P/Bld) [Vol rate/Area] mL/min/{1.73_m2} Normal >=60 [facility] Comment on above: Order Comment: Relea se to patient->Automatic Glucose [Mass/Vol] 84 mg/dL Normal 70-99 [facility] Comment on above: Order Comment: Relea se to patient->Automatic Result Comment: Sparkle muñoz for Diagnosis of Diabetes: Fasting Specimen (no caloric intake for at least 8 hours): <100 mg/dL Normal 100-125 mg/dL Increased risk for Diabetes >125 mg/dL Diagnostic for Diabetes Random Glucose (any time of day without regard to last meal): > or = 200 mg/dL plus Classic Symptoms of Diabetes Verified By: [id number] Potassium [Moles/Vol] 4.2 mmol/L Normal 3.3-5.1 [facility] Comment on above: Order Comment: Relea se to patient->Automatic Result Comment: Veri fied By: [id number] Sodium [Moles/Vol] 141 mmol/L Normal 133-145 [facility] Comment on above: Order Comment: Relea se to patient->Automatic Result Comment: Veri fied By: [id number] Urea nitrogen [Mass/Vol] 10 mg/dL Normal - [facility] Comment on above: Order Comment: Relea se to patient->Automatic Result Comment: Veri fied By: [id number] Basic Metabolic Panelon 10-17 Calcium [Mass/Vol] 9.5 mg/dL 7.6 - 11. 0 mg/dL [facility] Comment on above: Verified By: [id number] Chloride [Moles/Vol] 104 mmol/L 96 - 10 8 mmol/L [facility] Comment on above: Verified By: [id number] Creatinine [Mass/Vol] 1.08 mg/dL 0.70 - 1.20 mg/dL [facility] Comment on above: Verified By: [id number] eGFR - PINF [facility] Glucose [Mass/Vol] 84 mg/dL 70 - 99 mg/dL [facility] Comment on above: Criteria for Diagnos is of Diabetes: Fasting Specimen (no caloric intake for at least 8 hours): <100 mg/dL Normal 100-125 mg/dL Increased risk for Diabetes >125 mg/dL Diagnostic for Diabetes Random Glucose (any time of day without regard to last meal): > or = 200 mg/dL plus Classic Symptoms of Diabetes Verified By: [id number] HCO3 (P) [Moles/Vol] 26.6 mmol/L 22.0 - 29.0 mmol/L [facility] Comment on above: Verified By: [id number] Potassium (BldA) [Moles/Vol] 4.2 mmol/L 3.3 - 5.1 mmol/L [facility] Comment on above: Verified By: [id number] Sodium [Moles/Vol] 141 mmol/L 133 - 145 mmol/L [facility] Comment on above: Verified By: [id number] Urea nitrogen [Mass/Vol] 10 mg/dL 4 - 19 mg/dL [facility] Comment on above: Verified By: [id number] C-REACTIVE PROTEINon 025 CRP [Mass/Vol] mg/L Normal <=1.0 [facility] Comment on above: Order Comment: Relea se to patient->Automatic Result Comment: CRP determinations in neonates should be interpreted with caution. CRP may be elevated in circumstances not associated with inflammation (e.g. difficult delivery, pneumothorax). In premature neonates CRP levels may not rise to abnormal levels even if sepsis is present; some speculate that immature liver function decreases the ability to generate a CRP response. Verified By: [id number] C-reactive proteinon CRP [Mass/Vol] [facility] Comment on above: CRP determinations i n neonates should be interpreted with caution. CRP may be elevated in circumstances not associated with inflammation (e.g. difficult delivery, pneumothorax). In premature neonates CRP levels may not rise to abnormal levels even if sepsis is present; some speculate that immature liver function decreases the ability to generate a CRP response. Verified By: [id number] COMPLETE BLOOD COUNT WITHOUT DIFFERENTIALon 11-04-2024 Erythrocyte distribution width (RBC) [Ratio] 12.6 % Normal 11.9-13.5 [facility] Comment on above: Order Comment: Relea se to patient->Automatic Hematocrit (Bld) [Volume fraction] 46.6 % Normal 40.6-50.2 [facility] Comment on above: Order Comment: Relea se to patient->Automatic Hemoglobin (Bld) [Mass/Vol] 15.9 g/dL Normal 13.5-17.0 [facility] Comment on above: Order Comment: Relea se to patient->Automatic MCH (RBC) [Entitic mass] 30.5 pg Normal 27.3-31.2 [facility] Comment on above: Order Comment: Relea se to patient->Automatic MCHC 34.1 % Normal 32.1-34.8 [facility] Comment on above: Order Comment: Relea se to patient->Automatic MCV (RBC) [Entitic vol] 89.4 fL Normal 80.0-100.0 [facility] Comment on above: Order Comment: Relea se to patient->Automatic Nucleated RBC/100 WBC (Bld) [Ratio] 0.0 % Normal 0.0-0.0 [facility] Comment on above: Order Comment: Relea se to patient->Automatic Platelet mean volume (Bld) [Entitic vol] 11.9 fL High 9.6-11.8 [facility] Comment on above: Order Comment: Relea se to patient->Automatic Platelets 189 10E3/???L Normal 150-400 [facility] Comment on above: Order Comment: Relea se to patient->Automatic RBC 5.21 10E6/???L Normal 4.59-5.58 [facility] Comment on above: Order Comment: Relea se to patient->Automatic WBC 7.1 10E3/???L Normal 4.5-9.6 [facility] Comment on above: Order Comment: Relea se to patient->Automatic Complete Blood Count without Differential (Hemogram)Ordered By: Zoila Haynes on 11-04-2024 Erythrocyte distribution width (RBC) [Ratio] 12.6 % 11.9 - 13.5 % [facility] Hematocrit (Bld) [Volume fraction] 46.6 % 40.6 - 50.2 % [facility] Hemoglobin (Bld) [Mass/Vol] 15.9 g/dL 13.5 - 17.0 g/dL [facility] Interpretation and review of laboratory results Abnormal [facility] MCH (RBC) [Entitic mass] 30.5 pg 27.3 - 31.2 pg [facility] MCHC (RBC) [Mass/Vol] 34.1 % 32.1 - 34.8 % [facility] MCV (RBC) [Entitic vol] 89.4 fL 80.0 - 100.0 fL [facility] Nucleated RBC/100 WBC (Bld) [Ratio] 0.0 % 0.0 - 0.0 % [facility] Platelet mean volume (Bld) [Entitic vol] 11.9 fL High 9.6 - 11.8 fL [facility] Platelets (Bld) [#/Vol] 189 10*3/uL [facility] RBC (Bld) [#/Vol] 5.21 10*6/uL [facility] WBC (Bld) [#/Vol] 7.1 10*3/uL [facility] GGTon 11-04-2024 Gamma glutamyl transferase [Catalytic activity/Vol] 36 U/L 7 - 51 U/L [facility] Interpretation and review of laboratory results Normal [facility] Gamma glutamyl transferase [Catalytic activity/Vol] 36 U/L Normal 7-51 [facility] Comment on above: Order Comment: Relea se to patient->Automatic HEPATIC FUNCTION PANELon Albumin [Mass/Vol] 4.3 g/dL Normal 3.5-5.0 [facility] Comment on above: Order Comment: Relea se to patient->Automatic Result Comment: Veri fied By: [id number] ALP [Catalytic activity/Vol] 95 U/L Normal 40-129 [facility] Comment on above: Order Comment: Relea se to patient->Automatic Result Comment: Veri fied By: [id number] ALT [Catalytic activity/Vol] 49 U/L High <=46 [facility] Comment on above: Order Comment: Relea se to patient->Automatic Result Comment: Veri fied By: [id number] AST [Catalytic activity/Vol] 41 U/L High <=37 [facility] Comment on above: Order Comment: Relea se to patient->Automatic Result Comment: Veri fied By: [id number] BILI,TOTAL 0.3 mg/dL Normal <=1.0 [facility] Comment on above: Order Comment: Relea se to patient->Automatic Result Comment: Veri fied By: [id number] Bilirubin.indirect [Mass/Vol] mg/dL Normal <=0.7 [facility] Comment on above: Order Comment: Relea se to patient->Automatic Result Comment: Veri fied By: [id number] Protein [Mass/Vol] 7.6 g/dL Normal 5.9-8.4 [facility] Comment on above: Order Comment: Relea se to patient->Automatic Result Comment: Veri fied By: [id number] HEPATITIS ACUTE PANELon 10-17 Hep B Core Ab, IgM Non-Reactive Normal NonReactive [facility] Comment on above: Order Comment: Relea se to patient->Automatic Result Comment: Refe rence value: Non-reactive IgM antibodies to HBc were not detected. Does not exclude the possibility of exposure to HBV. Verified By: [id number] Hepatitis A Ab, IgM Non-Reactive Normal NonReactive [facility] Comment on above: Order Comment: Relea se to patient->Automatic Result Comment: Refe rence value: Non-reactive Result does not exclude the possibility of exposure to Hepatitis A virus. Antibody level during early infection stage may be below the limit of detection of the assay. Verified By: [id number] Hepatitis B Surface AG Non-Reactive Normal NonReactive [facility] Comment on above: Order Comment: Relea se to patient->Automatic Result Comment: Refe rence value: Non-reactive HBsAg not detected. Does not exclude the possibility of exposure to HBV. Verified By: [id number] Hepatitis C Ab Non-Reactive Normal NonReactive [facility] Comment on above: Order Comment: Relea se to patient->Automatic Result Comment: Refe rence value: Non-reactive Antibodies to HCV were not detected. Does not exclude the possibility of exposure to HCV. Verified By: [id number] Hepatic function panelon Albumin BCG dye [Mass/Vol] 4.3 g/dL 3.5 - 5.0 g/dL [facility] Comment on above: Verified By: [id number] ALP [Catalytic activity/Vol] 95 U/L 40 - 129 U/L [facility] Comment on above: Verified By: [id number] ALT With P-5'-P [Catalytic activity/Vol] 49 U/L High [facility] - 46 U/L [facility] Comment on above: Verified By: [id number] AST With P-5'-P [Catalytic activity/Vol] 41 U/L High [facility] - 37 U/L [facility] Comment on above: Verified By: [id number] Bilirubin [Mass/Vol] 0.3 mg/dL [facility] - 1.0 mg/dL [facility] Comment on above: Verified By: [id number] Bilirubin.direct [Mass/Vol] mg/dL NINF - 0.7 mg/dL [facility] Comment on above: Verified By: [id number] Interpretation and review of laboratory results Abnormal [facility] Protein [Mass/Vol] 7.6 g/dL 5.9 - 8.4 g/dL [facility] Comment on above: Verified By: [id number] Hepatitis Acute Panelon 10-17 HAV IgM Ql (S) Non-Reactive NonReactive [facility] Comment on above: Reference value: Non -reactive Result does not exclude the possibility of exposure to Hepatitis A virus. Antibody level during early infection stage may be below the limit of detection of the assay. Verified By: [id number] HBV core IgM IA Ql Non-Reactive NonReactive [facility] Comment on above: Reference value: Non -reactive IgM antibodies to HBc were not detected. Does not exclude the possibility of exposure to HBV. Verified By: [id number] HBV surface Ag Ql (S) Non-Reactive NonReactive [facility] Comment on above: Reference value: Non -reactive HBsAg not detected. Does not exclude the possibility of exposure to HBV. Verified By: [id number] HCV Ab Ql (S) Non-Reactive NonReactive [facility] Comment on above: Reference value: Non -reactive Antibodies to HCV were not detected. Does not exclude the possibility of exposure to HCV. Verified By: [id number] Interpretation and review of laboratory results Normal [facility] No Panel Informationon 11-04 Interpretation and review of laboratory results Normal [facility] Progress Noteon 11-04-2024 Work Order Clerk Authentication Interface Message Text Assessment Bhavesh is a 24 y.o. 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 ---Last seen 06/24/24 ---History from patient and parent ---Patient was admitted 05/05/15 - EGD/Colonoscopy on 05/06/15 - Visually showed a patchy gastritis with a pancolitis sparing the cecum (but had inflammaiton around appendiceal orrifice as well as ICV; TI was normal appearing). Biopsies confirm gastritis (no granulomas), as well as Chronic Colitis from Rectum through Transverse Colon (but biopsies from TI, Cecum and Ascending colon were negative); no granulomas. Findings more consistent with IC/UC. ---Patient was started on Remicade and MTX VZV immune. Hep B immune. TB test placed on 05/06/15 and read on 04/28/15 as being negative. TPMT Genetics - normal enzyme activity. Remicade: Started 06/01/15 (200mg); increased 09/07/15 to 300mg due to weight gain ---Last - Jan 2024; Now Getting at [facility]; Inflectra ---Next - ?; q8 weeks - 700mg; Overdue now MTX: Has been off for years, now Remicade Levels ([facility]): 09/01/15: Infliximab 8.9; Negative (0) Antibodies Remicade Levels ([place], 1st Gen); 06/07/18 - 7.0; Antibodies not checked due to levels >5 ---Increased to 400mg (from 300mg) Remicade Levels ([facility]): 05/31/19: Infliximab 22; Negative (0) Antibodies ---Kept at 400mg q8 weeks ---Had multiple issues trying to get levels done at outside infusion center for some time Remicade Levels ([facility]): Feb 2023: Infliximab 3.9; Negative (0) Antibodies ---Increased to 700mg q8 weeks Repeat EGD/Colon on 02/07/16 (8 months after start of Remicade) - didn't really show any active disease (other than mild in rectum) 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 IBD (inflammatory bowel disease) 3. Immunosuppressed status Currently - Overall, patient has been having mild GI issues - intermittent ABD pain and change in stool. Patient was ordered to re-start infusions, but then ? related to insurance issues, has been overdue now for infusion for about 9 months. Plan Reviewed labs From June 2024 IBD is a chronic medical condition that if not kept under control/In Remission, can cause increased morbidity/threat to daily function for patients. Due to this, well will proceed with this plan: Inflectra - continue 700mg (mg/kg), q 8 weeks - ideally, would like to be back on ---will Check with [employer] and see what we are allowed to have Covered ---Do not really care which infliximab biosimilar we're allowed to have ---Alt: Humira (or Biosimilar) vs. Entyvio vs. Skyrizi vs. Rinvoq Labs - with each infusion: CBC,LFT/BMP, ESR/CRP ---Once per year - Quant Gold, Acute Hep, GGT, Vit D (Unsure when last done - will repeat with labs today) ------Need for intensive therapeutic monitoring of drug levels to help prevent toxicity as well as maintain optimal levels to maintain remission ---Need to get infusions going again before we can check levels ---Discussed next EGD/Colonoscopy due 8-10yrs after initial diagnosis ([id number]), as long as patient doesn't want to change therapy ---Have to hold for now, as would like patient to be back on Therapy Discussed, patient now starting to have mild issues, but does not sound completley out of control ---However, being off all therapy worries me that he is at much higher risk that he may flare and have complications ---Would like to have him be back on Biologic therapy RAFFAELE Follow up 3 months ---Depending on which medication we are allowed to start Subjective Chief Complaint: Inflammatory Bowel Disease This is not a consultation. He is accompanied by his mother. No structural engineering project manager was used. Remicade: Started 06/01/15 (200mg); increased 09/07/15 to 300mg due to weight gain ---Last - Jan 2024; 700mg; [facility]; Inflectra ---Next - q8 weeks - 700mg; Overdue 9-10 months MTX: had stopped - non compliant and did not want to take ---but had been on >1 year previously (with Remicade) Current Symptoms ABD pain - No issues now ---Intermittently has had mild ABD pain Stooling - not exactly normal ---4x per day -5x per day ---Stool variable consistency - can be looser on occasion ---No blood ---No waking to stool UO - Doing well N/V - No issues Appetite - Doing well Growth - Down about 1.3kg from last seen ---BMI - 21.8 (was 21.8, when last seen) Activity - Doing well ---Work - Patient has no restrictions; 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 Negative for recurrent fevers and weight gain. HENT: Negative for trouble swallowing. Eyes: Positive for we (more content not included)... Normal [facility] QUANTIFERON TB GOLDon 2024 Mitogen minus NIL >9.89 Normal [facility] Comment on above: Order Comment: Quant iFERON-TB Gold Plus is a qualitative indirect chemiluminescence immunoassay test for M tuberculosis infection and is intended for use in conjunction with risk assessment, radiography, and other medical and diagnostic evaluations. The QuantiFERON-TB Gold Plus result is determined by subtracting the Nil value from either TB antigen value. The Mitogen tube serves as a control for the test. The TB1-NIL tube specifically detects CD4+ lymphocyte reactivity; the TB2-NIL tube can detect both CD4+ and CD8+ lymphocyte reactivity. An overall Negative result does not completely rule out TB infection. A false-positive result in the absence of other clinical evidence of TB infection is not uncommon and may be due to infection from some nontuberculosis mycobacteria (M. kansasii, M szulgai, or M. marinum). Clinical research suggests a QuantiFERON-TB Gold Plus interpretation of Positive with TB1 minus Nil and TB2 minus Nil values <1.00 may represent a false-positive in the absence of other clinical evidence, especially in low-risk individuals. An overall indeterminate result is inconclusive and should not be viewed as low or intermediate infection. Indeterminate results can be caused by low Mitogen or high Nil values. Low mitogen results may occur due to a low lymphocyte count, reduced lymphocyte activity, inability of the patient's lymphocytes to generate IFN-gamma, or inappropriate handling of the tubes. High values for the Nil tube may occur due to heterophile antibody effects of nonspecific, circulating IFN-gamma in the patient's blood sample. When clinically indicated, indeterminate tests should be repeated on a new specimen. Testing Performed: [address] [id number] Release to patient->Automatic Quantiferon TB Gold Negative Normal Negative [facility] Comment on above: Order Comment: Quant iFERON-TB Gold Plus is a qualitative indirect chemiluminescence immunoassay test for M tuberculosis infection and is intended for use in conjunction with risk assessment, radiography, and other medical and diagnostic evaluations. The QuantiFERON-TB Gold Plus result is determined by subtracting the Nil value from either TB antigen value. The Mitogen tube serves as a control for the test. The TB1-NIL tube specifically detects CD4+ lymphocyte reactivity; the TB2-NIL tube can detect both CD4+ and CD8+ lymphocyte reactivity. An overall Negative result does not completely rule out TB infection. A false-positive result in the absence of other clinical evidence of TB infection is not uncommon and may be due to infection from some nontuberculosis mycobacteria (M. kansasii, M szulgai, or M. marinum). Clinical research suggests a QuantiFERON-TB Gold Plus interpretation of Positive with TB1 minus Nil and TB2 minus Nil values <1.00 may represent a false-positive in the absence of other clinical evidence, especially in low-risk individuals. An overall indeterminate result is inconclusive and should not be viewed as low or intermediate infection. Indeterminate results can be caused by low Mitogen or high Nil values. Low mitogen results may occur due to a low lymphocyte count, reduced lymphocyte activity, inability of the patient's lymphocytes to generate IFN-gamma, or inappropriate handling of the tubes. High values for the Nil tube may occur due to heterophile antibody effects of nonspecific, circulating IFN-gamma in the patient's blood sample. When clinically indicated, indeterminate tests should be repeated on a new specimen. Testing Performed: [address] [address] Release to patient->Automatic TB1 minus NIL 0.00 IU/mL Normal -0.50-0.34 [facility] Comment on above: Order Comment: Quant iFERON-TB Gold Plus is a qualitative indirect chemiluminescence immunoassay test for M tuberculosis infection and is intended for use in conjunction with risk assessment, radiography, and other medical and diagnostic evaluations. The QuantiFERON-TB Gold Plus result is determined by subtracting the Nil value from either TB antigen value. The Mitogen tube serves as a control for the test. The TB1-NIL tube specifically detects CD4+ lymphocyte reactivity; the TB2-NIL tube can detect both CD4+ and CD8+ lymphocyte reactivity. An overall Negative result does not completely rule out TB infection. A false-positive result in the absence of other clinical evidence of TB infection is not uncommon and may be due to infection from some nontuberculosis mycobacteria (M. kansasii, M szulgai, or M. marinum). Clinical research suggests a QuantiFERON-TB Gold Plus interpretation of Positive with TB1 minus Nil and TB2 minus Nil values <1.00 may represent a false-positive in the absence of other clinical evidence, especially in low-risk individuals. An overall indeterminate result is inconclusive and should not be viewed as low or intermediate infection. Indeterminate results can be caused by low Mitogen or high Nil values. Low mitogen results may occur due to a low lymphocyte count, reduced lymphocyte activity, inability of the patient's lymphocytes to generate IFN-gamma, or inappropriate handling of the tubes. High values for the Nil tube may occur due to heterophile antibody effects of nonspecific, circulating IFN-gamma in the patient's blood sample. When clinically indicated, indeterminate tests should be repeated on a new specimen. Testing Performed: [address] [address] Release to patient->Automatic TB2 minus NIL 0.08 IU/mL Normal -0.50-0.34 [facility] Comment on above: Order Comment: Quant iFERON-TB Gold Plus is a qualitative indirect chemiluminescence immunoassay test for M tuberculosis infection and is intended for use in conjunction with risk assessment, radiography, and other medical and diagnostic evaluations. The QuantiFERON-TB Gold Plus result is determined by subtracting the Nil value from either TB antigen value. The Mitogen tube serves as a control for the test. The TB1-NIL tube specifically detects CD4+ lymphocyte reactivity; the TB2-NIL tube can detect both CD4+ and CD8+ lymphocyte reactivity. An overall Negative result does not completely rule out TB infection. A false-positive result in the absence of other clinical evidence of TB infection is not uncommon and may be due to infection from some nontuberculosis mycobacteria (M. kansasii, M szulgai, or M. marinum). Clinical research suggests a QuantiFERON-TB Gold Plus interpretation of Positive with TB1 minus Nil and TB2 minus Nil values <1.00 may represent a false-positive in the absence of other clinical evidence, especially in low-risk individuals. An overall indeterminate result is inconclusive and should not be viewed as low or intermediate infection. Indeterminate results can be caused by low Mitogen or high Nil values. Low mitogen results may occur due to a low lymphocyte count, reduced lymphocyte activity, inability of the patient's lymphocytes to generate IFN-gamma, or inappropriate handling of the tubes. High values for the Nil tube may occur due to heterophile antibody effects of nonspecific, circulating IFN-gamma in the patient's blood sample. When clinically indicated, indeterminate tests should be repeated on a new specimen. Testing Performed: [address] [address] Release to patient->Automatic VITAMIN D 25 HYDROXY(VITAMIN D DEFICIENCY)on 11-04-2024 25 [place] Vitamin D 47 ng/mL Normal 30-100 [facility] Comment on above: Order Comment: Relea se to patient->Automatic Result Comment: Refe rence ranges provided by [facility] are based on Endocrine Society Guidelines: Level: Characterization < 21 ng/mL: Vitamin D deficiency 21-29 ng/mL: Suboptimal Vitamin D status 30-100 ng/mL: Optimal Vitamin D status >100 ng/mL: Potentially toxic Vitamin D effects Vitamin D 25 hydroxyon 11-04 Interpretation and review of laboratory results Normal [facility] Vitamin D+Metabolites [Mass/Vol] 47 ng/mL 30 - 100 ng/mL [facility] Comment on above: Reference ranges pro vided by [facility] are based on Endocrine Society Guidelines: Level: Characterization < 21 ng/mL: Vitamin D deficiency 21-29 ng/mL: Suboptimal Vitamin D status 30-100 ng/mL: Optimal Vitamin D status >100 ng/mL: Potentially toxic Vitamin D effects [facility] Progress Noteon 06-24-2024 Work Order Clerk Authentication Interface Message Text Assessment Bhavesh is a 24 y.o. 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 ---Last seen 01/26/23 (Telemedicine) ---History from patient and parent ---Patient was admitted 05/05/15 - EGD/Colonoscopy on 05/06/15 - Visually showed a patchy gastritis with a pancolitis sparing the cecum (but had inflammaiton around appendiceal orrifice as well as ICV; TI was normal appearing). Biopsies confirm gastritis (no granulomas), as well as Chronic Colitis from Rectum through Transverse Colon (but biopsies from TI, Cecum and Ascending colon were negative); no granulomas. Findings more consistent with IC/UC. ---Patient was started on Remicade and MTX VZV immune. Hep B immune. TB test placed on 05/06/15 and read on 04/28/15 as being negative. TPMT Genetics - normal enzyme activity. Remicade: Started 06/01/15 (200mg); increased 09/07/15 to 300mg due to weight gain ---Last - 02/13/24; Now Getting at [facility]; Inflectra ---Next - q8 weeks - 700mg; Overdue now - has not had infusion in ?3-4 months MTX: Has been off for years, now Remicade Levels ([facility]): 09/01/15: Infliximab 8.9; Negative (0) Antibodies Remicade Levels ([place], 1st Gen); 06/07/18 - 7.0; Antibodies not checked due to levels >5 ---Increased to 400mg (from 300mg) Remicade Levels ([facility]): 05/31/19: Infliximab 22; Negative (0) Antibodies ---Kept at 400mg q8 weeks ---Had multiple issues trying to get levels done at outside infusion center for some time Remicade Levels ([facility]): Feb 2023: Infliximab 3.9; Negative (0) Antibodies ---Increased to 700mg q8 weeks Repeat EGD/Colon on 02/07/16 (8 months after start of Remicade) - didn't really show any active disease (other than mild in rectum) 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 IBD (inflammatory bowel disease) 3. Immunosuppressed status Currently - Overall, patient has been feeling fine with no issues at all. However, due to job and just being busy, patient's last infusion was in Jan 2024, and is overdue 3-4 months now. Plan Reviewed labs Feb 2023 and Jan 2024 IBD is a chronic medical condition that if not kept under control/In Remission, can cause increased morbidity/threat to daily function for patients. Due to this, well will proceed with this plan: Now on Inflectra - continue 700mg (mg/kg), q 8 weeks ---Monitor for growth over time, depending on weight ---Will get orders together, as we have to re-start infusions ---Given he is doing well, we will just re-start q8 weeks, but if having more issues, may need to re-start induction ---Patient very interested in changing to [place] dosing ---Discussed we have to get him back on schedule and make sure infusion levels are good before we transfer to [place], but likely would be good option for him Labs - with each infusion: CBC,LFT/BMP, ESR/CRP ---Once per year - Quant Gold, Acute Hep, GGT, Vit D (Unsure when last done - will need with next infusion) ------Need for intensive therapeutic monitoring of drug levels to help prevent toxicity as well as maintain optimal levels to maintain remission ---Orders Need to Re-check Levels with next infusion ([facility]) ---Mainly making sure there is no rejection ---Discussed next EGD/Colonoscopy due 8-10yrs after initial diagnosis ([id number]), as long as patient doesn't want to change therapy ---Likely plan for 2025, as long as we can check levels and make sure they are therapeutic Discussed patient is 24yo ---Discussed need to transition when out of school, turning [age], getting or having children or if involved in illegal drugs ---patient has decided to keep care at [facility] for now, but is aware of transition protocol ---If we can get labs/levels and scope done and patient is in remission, then this would be a good time to transition ---Discussed with patient to start calling insurance, to see who he is allowed to see for Adult GI Follow up 3-4 months if doing well ---OK for Telemedicine If doing well Subjective Chief Complaint: Inflammatory Bowel Disease This is not a consultation. He is accompanied by his mother. No structural engineering project manager was used. Remicade: Started 06/01/15 (200mg); increased 09/07/15 to 300mg due to weight gain ---Last - Jan 2024 700mg; Now Getting at [facility]; Inflectra ---Next - q8 weeks - 700mg; Overdue 3-4 months MTX: had stopped - non compliant and did not want to take ---but had been on >1 year previously (with Remicade) Current Symptoms ABD pain - No issues Stooling - Doing well ---2x per day ---No diarrhea ---No blood ---No waking to stool UO - Doing well N/V - No issues Appetite - Doing well ---eating very well and larger amounts Growth - No weight loss, per patient ---BMI - 21.8 Activity - Doing well ---Work - Patient has no restrictions; 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 Normal [facility] Alanine aminotransferase [En zymatic activity/volume] in Serum or PlasmaOrdered By: Chad Wren on 03-29-2023 ALT [Catalytic activity/Vol] 18 U/L 7-52 [facility] Albumin [Mass/volume] in Ser um or Plasma by Bromocresol green (BCG) dye binding methoOrdered By: Chad Wren on 03-29-2023 Albumin BCG dye [Mass/Vol] 4.2 g/dL 3.5-5.7 [facility] Alkaline phosphatase [Enzyma tic activity/volume] in Serum or PlasmaOrdered By: Chad Wren on 03-29-2023 ALP [Catalytic activity/Vol] 65 U/L 34-104 [facility] Aspartate aminotransferase [ Enzymatic activity/volume] in Serum or PlasmaOrdered By: Chad Wren on 03-29-2023 AST [Catalytic activity/Vol] 15 U/L 13-39 [facility] Basophils Auto (Bld) [#/Vol] Ordered By: Chad Wren on 03-29-2023 Basophils (Bld) [#/Vol] 0.0 10*3/uL 0.0-0.2 [facility] Basophils/100 WBC Auto (Bld) Ordered By: Chad Wren on 03-29-2023 Basophils/100 WBC (Bld) 0.2 % . F [facility] Bilirubin.total [Mass/volume ] in Serum or PlasmaOrdered By: Chad Wren on 03-29-2023 Bilirubin [Mass/Vol] 0.8 mg/dL 0.3-1.0 [facility] Calcium [Mass/volume] in Ser um or PlasmaOrdered By: Chad Wren on 03-29-2023 Calcium [Mass/Vol] 9.4 mg/dL 8.6-10.3 [facility] Carbon dioxide, total [Moles /volume] in Serum or PlasmaOrdered By: Chad Wren on 03-29-2023 CO2 [Moles/Vol] 30.2 mmol/L 21.0-31.0 [facility] Chloride [Moles/volume] in S mitzy or PlasmaOrdered By: Chad Wren on 03-29-2023 Chloride [Moles/Vol] 106 mmol/L 98-107 [facility] Cholesterol [Mass/volume] in Serum or PlasmaOrdered By: Chad Wren on 03-29-2023 Cholesterol [Mass/Vol] 152 mg/dL 140-200 [facility] Comment on above: Chol less than 200 m g/dl low riskChol 201-239 mg/dl borderline riskChol 240 mg/dl and greater high risk Cholesterol in LDL Calc [Mas s/Vol]Ordered By: Chad Wren on 03-29-2023 Cholesterol in LDL [Mass/Vol] 89 mg/dL 0-100 [facility] Comment on above: LDL ATP III CLASSIFI CATIONLDL less than 100 mg/dL OptimalLDL 100-129 mg/dL Near or above optimalLDL 130-159 mg/dL Borderline highLDL 160-189 mg/dL HighLDL greater than 189 mg/dL Very high Cholesterol in VLDL Calc [Ma ss/Vol]Ordered By: Chad Wren on 03-29-2023 Cholesterol in VLDL [Mass/Vol] 13 mg/dL [facility] Complete Blood Count no refl exon 03-29-2023 Basophils (Bld) [#/Vol] 0.0 10*3/uL Normal 0.0-0.2 [facility] Comment on above: Result Comment: PERF ORMED BY: [place] [address] PATHOLOGIST PHARMACY INFORMATICIST MARIO ALBERTO AGUIAR M.D. Performed By: #### C MP, CHC CBC, LIPID, TSH3, T4T #### [facility] [address] Basophils/100 WBC (Bld) 0.2 % Normal . [facility] Comment on above: Performed By: #### C MP, CHC CBC, LIPID, TSH3, T4T #### [address] Eosinophils (Bld) [#/Vol] 0.1 10*3/uL Normal 0.0-0.45 [facility] Comment on above: Performed By: #### C MP, CHC CBC, LIPID, TSH3, T4T #### [address] Eosinophils/100 WBC (Bld) 2.1 % Normal . [facility] Comment on above: Performed By: #### C MP, CHC CBC, LIPID, TSH3, T4T #### [address] Erythrocyte distribution width (RBC) [Ratio] 12.3 % Normal 12.0-14.8 [facility] Comment on above: Performed By: #### C MP, CHC CBC, LIPID, TSH3, T4T #### [address] Hematocrit (Bld) [Volume fraction] 45.7 % Normal 38.8-50.0 [facility] Comment on above: Performed By: #### C MP, CHC CBC, LIPID, TSH3, T4T #### [address] Hemoglobin (Bld) [Mass/Vol] 15.5 g/dL Normal 13.0-17.0 [facility] Comment on above: Performed By: #### C MP, CHC CBC, LIPID, TSH3, T4T #### [address] Lymphocytes (Bld) [#/Vol] 2.2 10*3/uL Normal 1.00-4.8 [facility] Comment on above: Performed By: #### C MP, CHC CBC, LIPID, TSH3, T4T #### [address] Lymphocytes/100 WBC (Bld) 40.9 % Normal . [facility] Comment on above: Performed By: #### C MP, CHC CBC, LIPID, TSH3, T4T #### [facility] [address] MCH (RBC) [Entitic mass] 30.7 pg Normal 27.5-35.2 [facility] Comment on above: Performed By: #### C MP, CHC CBC, LIPID, TSH3, T4T #### [address] MCV (RBC) [Entitic vol] 90.5 fL Normal 83.5-101 F [facility] Comment on above: Performed By: #### C MP, CHC CBC, LIPID, TSH3, T4T #### [address] Mean Corpuscular HGB Conc 33.9 g/dL Normal 32.5-35.6 [facility] Comment on above: Performed By: #### C MP, CHC CBC, LIPID, TSH3, T4T #### [address] Monocytes (Bld) [#/Vol] 0.4 10*3/uL Normal 0.0-0.8 [facility] Comment on above: Performed By: #### C MP, CHC CBC, LIPID, TSH3, T4T #### [address] Monocytes/100 WBC (Bld) 8.1 % Normal . [facility] Comment on above: Performed By: #### C MP, CHC CBC, LIPID, TSH3, T4T #### [address] Neutrophils (Bld) [#/Vol] 2.6 10*3/uL Normal 1.8-7.7 [facility] Comment on above: Performed By: #### C MP, CHC CBC, LIPID, TSH3, T4T #### [address] Neutrophils/100 WBC (Bld) 48.7 % Normal . [facility] Comment on above: Performed By: #### C MP, CHC CBC, LIPID, TSH3, T4T #### [address] NRBC% 0.2 /100{WBC} Normal 0-0.5 [facility] Comment on above: Performed By: #### C MP, CHC CBC, LIPID, TSH3, T4T #### [address] Platelet mean volume (Bld) [Entitic vol] 10.5 fL High 6.6-10.1 [facility] Comment on above: Performed By: #### C MP, CHC CBC, LIPID, TSH3, T4T #### [address] Platelets (Bld) [#/Vol] 188 10*3/uL Normal 150-450 [facility] Comment on above: Performed By: #### C MP, CHC CBC, LIPID, TSH3, T4T #### [address] RBC (Bld) [#/Vol] 5.05 10*6/uL Normal 3.90-5.60 [facility] Comment on above: Performed By: #### C MP, CHC CBC, LIPID, TSH3, T4T #### [address] WBC (Bld) [#/Vol] 5.4 10*3/uL Normal 4.1-10.5 [facility] Comment on above: Performed By: #### C MP, CHC CBC, LIPID, TSH3, T4T #### [facility] [address] [place] [address] Comprehensive Metabolic Pane rebel 03-29-2023 Albumin [Mass/Vol] 4.2 g/dL Normal 3.5-5.7 [facility] Comment on above: Performed By: #### C MP, CHC CBC, LIPID, TSH3, T4T #### [address] Albumin/Globulin [Mass ratio] 1.4 {ratio} Normal [facility] Comment on above: Performed By: #### C MP, CHC CBC, LIPID, TSH3, T4T #### [facility] [address] ALP [Catalytic activity/Vol] 65 U/L Normal 34-104 [facility] Comment on above: Performed By: #### C MP, CHC CBC, LIPID, TSH3, T4T #### [facility] [address] ALT [Catalytic activity/Vol] 18 U/L Normal 7-52 [facility] Comment on above: Performed By: #### C MP, CHC CBC, LIPID, TSH3, T4T #### [facility] [address] Anion gap [Moles/Vol] 7.9 mmol/L Normal 6.0-15.0 [facility] Comment on above: Performed By: #### C MP, CHC CBC, LIPID, TSH3, T4T #### [address] AST [Catalytic activity/Vol] 15 U/L Normal 13-39 [facility] Comment on above: Performed By: #### C MP, CHC CBC, LIPID, TSH3, T4T #### [facility] [address] [place] [address] Bilirubin [Mass/Vol] 0.8 mg/dL Normal 0.3-1.0 [facility] Comment on above: Performed By: #### C MP, CHC CBC, LIPID, TSH3, T4T #### [facility] [address] [place] [address] Calcium [Mass/Vol] 9.4 mg/dL Normal 8.6-10.3 [facility] Comment on above: Performed By: #### C MP, CHC CBC, LIPID, TSH3, T4T #### [facility] [address] [place] [address] [place] Chloride [Moles/Vol] 106 mmol/L Normal 98-107 [facility] Comment on above: Performed By: #### C MP, CHC CBC, LIPID, TSH3, T4T #### [facility] [address] [place] [address] [place] CO2 [Moles/Vol] 30.2 mmol/L Normal 21.0-31.0 [facility] Comment on above: Performed By: #### C MP, CHC CBC, LIPID, TSH3, T4T #### [address] Creatinine [Mass/Vol] 1.12 mg/dL Normal 0.70-1.30 [facility] Comment on above: Performed By: #### C MP, CHC CBC, LIPID, TSH3, T4T #### [address] GFR/1.73 sq M.predicted MDRD (S/P/Bld) [Vol rate/Area] mL/min/{1.73_m2} Normal [facility] Comment on above: Performed By: #### C MP, CHC CBC, LIPID, TSH3, T4T #### [address] Globulin (S) [Mass/Vol] 2.9 g/dL Normal [facility] Comment on above: Performed By: #### C MP, CHC CBC, LIPID, TSH3, T4T #### [address] Glucose [Mass/Vol] 84 mg/dL Normal 70-100 [facility] Comment on above: Result Comment: [facility] Glucose Reference Range is dependent on time and content of last meal. Glucose of more than 200 mg/dL in a nonstressed, ambulatory subject supports the diagnosis of Diabetes Mellitus. ADA recommended reference range Performed By: #### C MP, CHC CBC, LIPID, TSH3, T4T #### [address] Potassium [Moles/Vol] 4.1 mmol/L Normal 3.5-5.1 [facility] Comment on above: Performed By: #### C MP, CHC CBC, LIPID, TSH3, T4T #### [address] Protein [Mass/Vol] 7.1 g/dL Normal 6.4-8.9 [facility] Comment on above: Performed By: #### C MP, CHC CBC, LIPID, TSH3, T4T #### [facility] [address] [place] [address] [place] Sodium [Moles/Vol] 140 mmol/L Normal 136-145 [facility] Comment on above: Performed By: #### C MP, CHC CBC, LIPID, TSH3, T4T #### [facility] [address] [place] [address] [place] Urea nitrogen [Mass/Vol] 13 mg/dL Normal 7-25 [facility] Comment on above: Performed By: #### C MP, CHC CBC, LIPID, TSH3, T4T #### [facility] [address] [place] [address] [place] Creatinine [Mass/volume] in Serum or PlasmaOrdered By: Chad Wren on 03-29-2023 Creatinine [Mass/Vol] 1.12 mg/dL 0.70-1.30 [facility] Eosinophils Auto (Bld) [#/Vo l]Ordered By: Chad Wren on 03-29-2023 Eosinophils (Bld) [#/Vol] 0.1 10*3/uL 0.0-0.45 [facility] Eosinophils/100 WBC Auto (Bl d)Ordered By: Chad Wren on 03-29-2023 Eosinophils/100 WBC (Bld) 2.1 % . [facility] Erythrocyte distribution wid th Auto (RBC) [Ratio]Ordered By: Chad Wren on 03-29-2023 Erythrocyte distribution width (RBC) [Ratio] 12.3 % 12.0-14.8 [facility] Globulin Calc (S) [Mass/Vol] Ordered By: Chad Wren on 03-29-2023 Globulin (S) [Mass/Vol] 2.9 g/dL [facility] Glucose [Mass/volume] in Ser um or PlasmaOrdered By: Chad Wren on 03-29-2023 Glucose [Mass/Vol] 84 mg/dL 70-100 [facility] Comment on above: ADA recommended refe rence rangeRandom Glucose Reference Range is dependent on time and content of last meal. Glucose of more than 200 mg/dL in a nonstressed, ambulatory subject supports the diagnosis of Diabetes Mellitus. Hematocrit Auto (Bld) [Volum e fraction]Ordered By: Chad Wren on 03-29-2023 Hematocrit (Bld) [Volume fraction] 45.7 % 38.8-50.0 [facility] Hemoglobin [Mass/volume] in BloodOrdered By: Chad Wren on 03-29-2023 Hemoglobin (Bld) [Mass/Vol] 15.5 g/dL 13.0-17.0 [facility] Leukocytes [#/volume] correc ruben for nucleated erythrocytes in Blood by Automated counOrdered By: Chad Wren on 03-29-2023 WBC corrected for nucl RBC Auto (Bld) [#/Vol] 5.4 10*3/uL 4.1-10.5 [facility] Lipid Panelon 03-29-2023 Cholesterol [Mass/Vol] 152 mg/dL Normal 140-200 [facility] Comment on above: Result Comment: Chol less than 200 mg/dl low risk Chol 201-239 mg/dl borderline risk Chol 240 mg/dl and greater high risk Performed By: #### C MP, CHC CBC, LIPID, TSH3, T4T #### [facility] [address] [place] [id number] [place] Cholesterol in HDL [Mass/Vol] 50 mg/dL Normal 23-92 [facility] Comment on above: Result Comment: HDL CHOL ATP-III CLASSIFICATION Cardiovascular Risk HDL > or equal to 60 mg/dL LOW HDL < 40 mg/dL HIGH Performed By: #### C MP, CHC CBC, LIPID, TSH3, T4T #### [facility] [address] [place] [address] [place] Cholesterol.total/Freda sterol in HDL [Mass ratio] 3.0 {ratio} Normal <5.0 [facility] Comment on above: Performed By: #### C MP, CHC CBC, LIPID, TSH3, T4T #### [facility] [address] [place] [address] [place] LDL Cholesterol,Calculated 89 mg/dL Normal 0-100 [facility] Comment on above: Result Comment: LDL ATP III CLASSIFICATION LDL less than 100 mg/dL Optimal LDL 100-129 mg/dL Near or above optimal LDL 130-159 mg/dL Borderline high LDL 160-189 mg/dL High LDL greater than 189 mg/dL Very high Performed By: #### C MP, CHC CBC, LIPID, TSH3, T4T #### [facility] [address] Triglyceride w/Reflex 65 mg/dL Normal 0-149 [facility] [facility] Comment on above: Result Comment: TRIG ATP III CLASSIFICATION TRIG less than 150 mg/dL Normal TRIG 150-199 mg/dL Borderline high TRIG 200-500 mg/dL High TRIG greater than 500 mg/dL Very high Standard traceable to the Center for Disease Conrtrol and Prevention (CDC) test method. Performed By: #### C MP, CHC CBC, LIPID, TSH3, T4T #### [facility] [address] VLDL CHOLESTEROL 13 mg/dL Normal [facility] Comment on above: Performed By: #### C MP, CHC CBC, LIPID, TSH3, T4T #### [facility] [address] Lymphocytes Auto (Bld) [#/Vo l]Ordered By: Chad Wren on 03-29-2023 Lymphocytes (Bld) [#/Vol] 2.2 10*3/uL 1.00-4.8 [facility] Lymphocytes/100 WBC Auto (Bl d)Ordered By: Chad Wren on 03-29-2023 Lymphocytes/100 WBC (Bld) 40.9 % . [facility] MCH Auto (RBC) [Entitic mass ]Ordered By: Chad Wren on 03-29-2023 MCH (RBC) [Entitic mass] 30.7 pg 27.5-35.2 [facility] MCHC Auto (RBC) [Mass/Vol]Or dered By: Chad Wren on 03-29-2023 MCHC (RBC) [Mass/Vol] 33.9 g/dL 32.5-35.6 [facility] MCV Auto (RBC) [Entitic vol] Ordered By: Chad Wren on 03-29-2023 MCV (RBC) [Entitic vol] 90.5 fL 83.5-101 F [facility] Monocytes Auto (Bld) [#/Vol] Ordered By: Chad Wren on 03-29-2023 Monocytes (Bld) [#/Vol] 0.4 10*3/uL 0.0-0.8 [facility] Monocytes/100 WBC Auto (Bld) Ordered By: Chad Wren on 03-29-2023 Monocytes/100 WBC (Bld) 8.1 % . F [facility] Neutrophils Auto (Bld) [#/Vo l]Ordered By: Chad Wren on 03-29-2023 Neutrophils (Bld) [#/Vol] 2.6 10*3/uL 1.8-7.7 [facility] Neutrophils/100 WBC Auto (Bl d)Ordered By: Chad Wren on 03-29-2023 Neutrophils/100 WBC (Bld) 48.7 % . [facility] No Panel InformationOrdered By: Chad Wren on 03-29-2023 Estimated GFR (CKD-EPI) > 60.0 mL/Min [facility] Creatinine Clearance (Chem N/A [facility] Nucleated erythrocytes [Pres ence] in Blood by Automated countOrdered By: Chad Wren on 03-29-2023 Nucleated RBC Auto Ql (Bld) 0.2 /100{WBC} 0-0.5 [facility] Platelet mean volume Auto (B ld) [Entitic vol]Ordered By: Chad Wren on 03-29-2023 Platelet mean volume (Bld) [Entitic vol] 10.5 fL 6.6-10.1 [facility] Platelets Auto (Bld) [#/Vol] Ordered By: Chad Wren on 03-29-2023 Platelets (Bld) [#/Vol] 188 10*3/uL 150-450 [facility] Potassium [Moles/volume] in Serum or PlasmaOrdered By: Chad Wren on 03-29-2023 Potassium [Moles/Vol] 4.1 mmol/L 3.5-5.1 [facility] Protein [Mass/volume] in Ser um or PlasmaOrdered By: Chad Wren on 03-29-2023 Protein [Mass/Vol] 7.1 g/dL 6.4-8.9 [facility] RBC Auto (Bld) [#/Vol]Ordere d By: Chad Wren on 03-29-2023 RBC (Bld) [#/Vol] 5.05 10*6/uL 3.90-5.60 [facility] Serum or plasma albumin/glob ulin mass ratioOrdered By: Chad Wren on 03-29-2023 Albumin/Globulin [Mass ratio] 1.4 {ratio} [facility] Serum or plasma anion gap de terminationOrdered By: Chad Wren on 03-29-2023 Anion gap [Moles/Vol] 7.9 mmol/L 6.0-15.0 [facility] Serum or plasma high density lipoprotein (HDL) cholesterol measurementOrdered By: Chad Wren on 03-29-2023 Cholesterol in HDL [Mass/Vol] 50 mg/dL 23-92 [facility] Comment on above: HDL CHOL ATP-III CLA SSIFICATION Cardiovascular RiskHDL > or equal to 60 mg/dL LOWHDL < 40 mg/dL HIGH Serum or plasma total choles terol/high density lipoprotein (HDL) cholesterol mass ratOrdered By: Chad Wren on 03-29-2023 Cholesterol.total/Freda sterol in HDL [Mass ratio] 3.0 {ratio} <5.0 [facility] Sodium [Moles/volume] in Ser um or PlasmaOrdered By: Chad Wren on 03-29-2023 Sodium [Moles/Vol] 140 mmol/L 136-145 [facility] Thyroid Stimulating Hormoneo n 03-29-2023 TSH Qn 1.37 m[IU]/L Normal 0.45-5.33 [facility] Comment on above: Result Comment: PERF ORMED BY: [place] [address] PATHOLOGIST PHARMACY INFORMATICIST MARIO ALBERTO AGUIAR M.D. Performed By: #### C MP, CHC CBC, LIPID, TSH3, T4T #### [facility] [address] Thyrotropin [Units/volume] i n Serum or PlasmaOrdered By: Chad Wren on 03-29-2023 TSH Qn 1.37 m[IU]/L 0.45-5.33 [facility] Thyroxine (T4) Totalon 03-29 T4 [Mass/Vol] 7.37 ug/dL Normal 5.39-11.82 [facility] Comment on above: Performed By: #### C MP, CHC CBC, LIPID, TSH3, T4T #### [facility] [address] Thyroxine (T4) [Mass/volume] in Serum or PlasmaOrdered By: Chad Wren on 03-29-2023 T4 [Mass/Vol] 7.37 ug/dL 5.39-11.82 [facility] Triglyceride [Mass/volume] i n Serum or PlasmaOrdered By: Chad Wren on 03-29-2023 Triglyceride [Mass/Vol] 65 mg/dL 0-149 F [facility] Comment on above: TRIG ATP III CLASSIF ICATIONTRIG less than 150 mg/dL NormalTRIG 150-199 mg/dL Borderline highTRIG 200-500 mg/dL High TRIG greater than 500 mg/dL Very highStandard traceable to the Center for Disease Conrtrol and Prevention (CDC) test method. Urea nitrogen [Mass/volume] in Serum or PlasmaOrdered By: Chad Wren on 03-29-2023 Urea nitrogen [Mass/Vol] 13 mg/dL 7-25 [facility] WBC Auto (Bld) [#/Vol]Ordere d By: Chad Wren on 03-29-2023 WBC (Bld) [#/Vol] 5.4 10*3/uL 4.1-10.5 [facility] Bilirubin Test strip Ql (U)O rdered By: Garrett Dominguez on 03-28-2023 Bilirubin Ql (U) Negative Negative [facility] Color Auto (U)Ordered By: Sukh Dominguez on 03-28-2023 Color (U) Yellow Yellow [facility] Ketones Auto test strip (U) [Mass/Vol]Ordered By: Garrett Dominguez on 03-28-2023 Ketones (U) [Mass/Vol] Negative Negative [facility] Nitrite Test strip Ql (U)Ord ered By: Garrett Dominguez on 03-28-2023 Nitrite Ql (U) Negative Negative [facility] Protein Auto test strip (U) [Mass/Vol]Ordered By: Garrett Dominguez on 03-28-2023 Protein (U) [Mass/Vol] Negative Negative [facility] Specific gravity Auto test s trip (U) [Rel density]Ordered By: Garrett Dominguez on 03-28-2023 Specific gravity (U) [Rel density] 1.005 1.001-1.030 [facility] Urinalysison 03-28-2023 Appearance (U) Clear Normal Clear [facility] Comment on above: Order Comment: Name Collection Type:: Collection Method Unknown Performed By: #### U A #### [place] [address] [place] Bilirubin,Urine Negative Normal Negative [facility] Comment on above: Order Comment: Name Collection Type:: Collection Method Unknown Performed By: #### U A #### [facility] [address] [place] [address] [place] Color (U) Yellow Normal Yellow [facility] Comment on above: Order Comment: Name Collection Type:: Collection Method Unknown Performed By: #### U A #### [facility] [address] [place] [address] [place] Glucose Ql (U) Normal Normal Normal [facility] Comment on above: Order Comment: Name Collection Type:: Collection Method Unknown Performed By: #### U A #### [facility] [address] [place] [address] [place] Ketones Ql (U) Negative Normal Negative [facility] Comment on above: Order Comment: Name Collection Type:: Collection Method Unknown Performed By: #### U A #### [facility] [address] [place] [address] [place] Leukocyte esterase Test strip Ql (U) Negative Normal Negative [facility] Comment on above: Order Comment: Name Collection Type:: Collection Method Unknown Performed By: #### U A #### [facility] [address] [place] [address] [place] Nitrite,Urine Negative Normal Negative [facility] Comment on above: Order Comment: Name Collection Type:: Collection Method Unknown Performed By: #### U A #### [address] Occult Blood,Urine Negative Normal Negative [facility] Comment on above: Order Comment: Name Collection Type:: Collection Method Unknown Result Comment: PERF ORMED BY: [place] [address] PATHOLOGIST PHARMACY INFORMATICIST MARIO ALBERTO AGUIAR M.D. Performed By: #### U A #### [address] pH (U) 7.0 [pH] Normal 5.0-9.0 [facility] Comment on above: Order Comment: Name Collection Type:: Collection Method Unknown Performed By: #### U A #### [address] Protein,Urine Negative Normal Negative [facility] Comment on above: Order Comment: Name Collection Type:: Collection Method Unknown Performed By: #### U A #### [address] Specificy Rayle,Urine 1.005 Normal 1.001-1.030 [facility] Comment on above: Order Comment: Name Collection Type:: Collection Method Unknown Performed By: #### U A #### [address] Urobilinogen,Urine Normal Normal Normal [facility] Comment on above: Order Comment: Name Collection Type:: Collection Method Unknown Performed By: #### U A #### [address] Urine clarity by refractomet ry automatedOrdered By: Garrett Dominguez on 03-28-2023 Clarity Refractometry automated (U) Clear Clear [facility] Urine glucose measurement by automated test strip (mass/volume)Ordered By: Garrett Dominguez on 03-28-2023 Glucose Auto test strip (U) [Mass/Vol] Normal mg/dL Normal [facility] Urine hemoglobin detection b y automated test stripOrdered By: Garrett Dominguez on 03-28-2023 Hemoglobin Auto test strip Ql (U) Negative Negative [facility] Urine leukocyte esterase det ection by automated test stripOrdered By: Garrett Dominguez on 03-28-2023 Leukocyte esterase Auto test strip Ql (U) Negative Negative [facility] Urobilinogen Auto test strip (U) [Mass/Vol]Ordered By: Garrett Dominguez on 03-28-2023 Urobilinogen (U) [Mass/Vol] Normal mg/dL Normal [facility] XR chest 2V*on 03-28-2023 XR chest 2V* [facility] [place] [address] [place] [address] XRay Report Signed Patient: Bhavesh Kwong MR#: [id number] : 2000 Acct:[id number] Age/Sex: 22 / M ADM Date: 03/28/23 Loc: [place] Room: Type: [facility] Attending Dr: Garrett Dominguez Jr, DO Copies [...] Merry Richardson M.D.03/28/2023 3:27 PM Dictation Location: [place] [address] Transcribed By: [facility] 03/28/23 1527 Dictated By: Merry Richardson MD 03/28/23 1527 Signed By: 03/28/23 1527 Normal [facility] pH Auto test strip (U)Ordere d By: Garrett Dominguez on 03-28-2023 pH (U) 7.0 [pH] 5.0-9.0 [facility] Lab - Toxicology Resultson 0 03-27-2023 Lab - Toxicology Results [id number] 0OTGTIFF Normal Miscellaneouson 03-26-2023 Miscellaneous [id number] #[id number] Normal Consultation Noteon 01-28-20 Consultation Note [id number]#1 .00TIFF Normal [facility] CBC AUTO DIFFon 06-07-2022 BASO # 0.0 103/ul Normal 0.0-0.1 [facility] Comment on above: Performed By: #### C RP, LIVER, BMP #### [facility] [address] [place] [address] [address] Raymundo Rodriguez Basophils/100 WBC (Bld) 0.4 % Normal 0.2-2.0 [facility] Comment on above: Performed By: #### C RP, LIVER, BMP #### [facility] [address] [place] [address] [address] Raymundo Rodriguez EO # 0.1 103/ul Normal 0.0-0.7 [facility] Comment on above: Performed By: #### C RP, LIVER, BMP #### [facility] [address] [place] [address] [address] Raymundo Rodriguez Eosinophils/100 WBC (Bld) 1.4 % Normal 0.9-7.0 [facility] Comment on above: Performed By: #### C RP, LIVER, BMP #### [facility] [address] [place] [address] [address] Raymundo Rodriguez Erythrocyte distribution width (RBC) [Ratio] 12.1 % Normal 11.0-15.0 [facility] Comment on above: Performed By: #### C RP, LIVER, BMP #### [facility] [address] [address] [address] Raymundo Rodriguez Hematocrit (Bld) [Volume fraction] 46.2 % Normal 42.0-54.0 [facility] Comment on above: Performed By: #### C RP, LIVER, BMP #### [facility] [address] [place] [address] [address] Raymundo Rodriguez Hemoglobin (Bld) [Mass/Vol] 15.6 g/dL Normal 14.0-18.0 [facility] Comment on above: Performed By: #### C RP, LIVER, BMP #### [facility] [address] [place] [address] Dr. Raymundo Rodriguez IG # 0.01 10e3/ul Normal 0.00-0.03 [facility] Comment on above: Performed By: #### C RP, LIVER, BMP #### [facility] [address] [place] [address] Dr. Raymundo Rodriguez IG % 0.2 % Normal 0.0-0.5 [facility] Comment on above: Performed By: #### C RP, LIVER, BMP #### [facility] [address] [place] [address] Dr. Raymundo Rodriguez LYMPH # 1.0 103/ul Critically low 1.2-3.8 [facility] Comment on above: Performed By: #### C RP, LIVER, BMP #### [facility] [address] [place] [address] Dr. Raymundo Rodriguez Lymphocytes/100 WBC (Bld) 17.4 % Critically low 20.5-60.0 [facility] Comment on above: Performed By: #### C RP, LIVER, BMP #### [facility] [address] [place] [address] Dr. Raymundo Rodriguez MANUAL DIFF REQ NO Normal [facility] Comment on above: Performed By: #### C RP, LIVER, BMP #### [facility] [address] [place] [address] Dr. Raymundo Rodriguez MCH (RBC) [Entitic mass] 30.2 pg Normal 25.9-34.0 [facility] Comment on above: Performed By: #### C RP, LIVER, BMP #### [facility] [address] [place] [address] Dr. Raymundo Rodriguez MCHC (RBC) [Mass/Vol] 33.8 g/dL Normal 29.9-35.2 [facility] Comment on above: Performed By: #### C RP, LIVER, BMP #### [facility] [address] [place] [address] [address] Raymundo Rodriguez MCV (RBC) [Entitic vol] 89.5 fL Normal 80.0-94.0 [facility] Comment on above: Performed By: #### C RP, LIVER, BMP #### [facility] [address] [place] [address] Dr. Raymundo Rodriguez MONO # 0.5 103/ul Normal 0.3-0.8 [facility] Comment on above: Performed By: #### C RP, LIVER, BMP #### [facility] [address] [place] [address] Dr. Raymundo Rodriguez Monocytes/100 WBC (Bld) 8.8 % Normal 1.7-12.0 [facility] Comment on above: Performed By: #### C RP, LIVER, BMP #### [facility] [address] [place] [address] Dr. Raymundo Rodriguez NEUT # 4.0 103/ul Normal 1.4-6.5 [facility] Comment on above: Performed By: #### C RP, LIVER, BMP #### [facility] [address] [place] [address] Dr. Raymundo Rodriguez Neutrophils/100 WBC (Bld) 71.8 % Normal 43.0-75.0 [facility] Comment on above: Performed By: #### C RP, LIVER, BMP #### [facility] [address] [place] [address] Dr. Raymundo Rodriguez Platelet mean volume (Bld) [Entitic vol] 11.2 fL Normal 9.5-13.5 [facility] Comment on above: Performed By: #### C RP, LIVER, BMP #### [facility] [address] [place] [address] Dr. Raymundo Rodriguez PLT 214 103/ul Normal 150-450 [facility] Comment on above: Performed By: #### C RP, LIVER, BMP #### [facility] [address] [place] [address] Dr. Raymundo Rodriguez RBC 5.16 106/ul Normal 4.70-6.10 [facility] Comment on above: Performed By: #### C RP, LIVER, BMP #### [facility] [address] [place] [address] Dr. Raymundo Rodriguez WBC 5.6 103/ul Normal 4.0-11.0 [facility] Comment on above: Performed By: #### C RP, LIVER, BMP #### [facility] [address] [place] [address] Dr. Raymundo Rodriguez CRPon 06-07-2022 CRP [Mass/Vol] mg/L Normal <=1.0 [facility] Comment on above: Performed By: #### C RP, LIVER, BMP #### [facility] [address] [place] [address] Dr. Raymundo Rodriguez LIVER PROFILEon 06-07-2022 Albumin [Mass/Vol] 3.8 g/dL Normal 3.4-5.0 [facility] Comment on above: Performed By: #### C RP, LIVER, BMP #### [facility] [address] [place] [address] Dr. Raymundo Rodriguez Albumin/Globulin [Mass ratio] 1.0 {ratio} Normal [facility] Comment on above: Performed By: #### C RP, LIVER, BMP #### [facility] [address] [place] [address] Dr. Raymundo Rodriguez ALP [Catalytic activity/Vol] 83 U/L Normal 46-116 [facility] Comment on above: Performed By: #### C RP, LIVER, BMP #### [facility] [address] [place] [address] Dr. Raymundo Rodriguez ALT [Catalytic activity/Vol] 32 U/L Normal 16-63 [facility] Comment on above: Performed By: #### C RP, LIVER, BMP #### [facility] [address] [place] [address] Dr. Raymundo Rodriguez AST [Catalytic activity/Vol] 21 U/L Normal 15-37 [facility] Comment on above: Performed By: #### C RP, LIVER, BMP #### [facility] [address] [place] [address] Dr. Raymundo Rodriguez BILI, CONJUGATED 0.1 mg/dL Normal 0.0-0.2 [facility] Comment on above: Performed By: #### C RP, LIVER, BMP #### [facility] [address] [place] [address] Dr. Raymundo Rodriguez Bilirubin [Mass/Vol] 0.7 mg/dL Normal 0.2-1.0 [facility] Comment on above: Performed By: #### C RP, LIVER, BMP #### [facility] [address] [place] [address] Dr. Raymundo Rodriguez Globulin (S) [Mass/Vol] 3.9 g/dL Normal [facility] Comment on above: Performed By: #### C RP, LIVER, BMP #### [facility] [address] [place] [address] Dr. Raymundo Rodriguez Protein [Mass/Vol] 7.7 g/dL Normal 6.4-8.2 [facility] Comment on above: Performed By: #### C RP, LIVER, BMP #### [facility] [address] [place] [address] Dr. Raymundo Rodriguez PROF CHEM 8 (BAS METB)on Anion gap [Moles/Vol] 10.8 mmol/L Normal [facility] Comment on above: Performed By: #### C RP, LIVER, BMP #### [facility] [address] [place] [address] Dr. Raymundo Rodriguez Calcium [Mass/Vol] 9.1 mg/dL Normal 8.5-10.1 [facility] Comment on above: Performed By: #### C RP, LIVER, BMP #### [facility] [address] [place] [address] Dr. Raymundo Rodriguez Chloride [Moles/Vol] 103 mmol/L Normal 98-107 [facility] Comment on above: Performed By: #### C RP, LIVER, BMP #### [facility] [address] [place] [address] Dr. Raymundo Rodriguez CO2 [Moles/Vol] 32.1 mmol/L Critically high 21.0-32.0 [facility] Comment on above: Performed By: #### C RP, LIVER, BMP #### [facility] [address] [place] [address] [address] Raymundo Rodriguez Creatinine [Mass/Vol] 1.10 mg/dL Normal 0.70-1.30 [facility] Comment on above: Performed By: #### C RP, LIVER, BMP #### [facility] [address] [place] [address] [address] Raymundo Rodriguez EGFR-AF STATELESS >60 Normal >=60 [facility] Comment on above: Performed By: #### C RP, LIVER, BMP #### [facility] [address] [place] [address] [address] Raymundo Rodriguez EGFR-NON AF STATELESS >60 Normal >=60 [facility] Comment on above: Performed By: #### C RP, LIVER, BMP #### [facility] [address] [address] [address] Raymundo Rodriguez Glucose [Mass/Vol] 116 mg/dL Critically high 74-106 [facility] Comment on above: Performed By: #### C RP, LIVER, BMP #### [facility] [address] [address] [address] Raymundo Rodriguez Potassium [Moles/Vol] 3.9 mmol/L Normal 3.5-5.1 [facility] Comment on above: Performed By: #### C RP, LIVER, BMP #### [facility] [address] [address] [address] Raymundo Rodriguez Sodium [Moles/Vol] 142 mmol/L Normal 136-145 [facility] Comment on above: Performed By: #### C RP, LIVER, BMP #### [facility] [address] [address] [address] Raymundo Rodriguez Urea nitrogen [Mass/Vol] 14.0 mg/dL Normal 7.0-18.0 [facility] Comment on above: Performed By: #### C RP, LIVER, BMP #### [facility] [address] [address] [address] Raymundo Rodriguez Urea nitrogen/Creatinine [Mass ratio] 12.7 mg/mg Normal [facility] Comment on above: Performed By: #### C RP, LIVER, BMP #### [facility] [address] [place], [place] [address] Dr. Raymundo Rodriguez [facility] 5 mm/hr Normal <=15 [facility] Comment on above: Performed By: #### C RP, LIVER, BMP #### [facility] [id number] Raymundo Rodriguez Consultation Noteon 05-24-19 23 Consultation Note [id number] .[id number]:127 Normal [facility] Coding Summaryon 05-15-2022 Coding Summary HTMLBase 64 HnmqbwwrODt4tMg+PGhlY WQ+JP7LTOTpJ46qgHJvmR 3BB5lQJX9IUGANDECEIW5 EXZ3izSM8KQobG3VyckYx SfxujTYcTW47GIq1PKG9d QhtACillW2tjZCwI4z9Ng TpYI37gS92DTxmRKHpMrA 3LjZpbjsgbWFy E8vbVsTlvSPoLeb+PHRhY mxlIHdpZHRoPScxMDAlJy XevKpwFO4pRl8sDEWhAJB vbGxhcHNlOiBj l1jwBSQlUUkrLA6oxHlnS 1VltCI7QRIzt0x7Tz66dK I+WOFjVSC7lHuxFFmyo74 0BqUcf2cgYGS4 lUCgJHfmYGD8S08hx7V8E BPkAVKlHYH1dNO8oC9zyG iyihguL7GwdKLiJpE9BXV 0cHFlhH6jbEcp ufjuoU8pGsi+H01PTS7XT JGHGA3RLot7K1PlRmngxW I+XO48KLWrON67xXKcfUA zj7dzfVn5VmLq MQIvZVX1dQpjWMrvs0PlV AXpE43pgGMag1G2XPUfnQ hzvPIvUsVriEI8dR2tNPx peedlz9wxkkxn Ferfg9klyt35mR45W70eE RwuBYGfHCI2HQZhNUIxlB rswq6zeJ6gRa3+MUsgu5f ge8qblBf8TgAe QAXutbBouDirLDN9r5EuT i84C3ReqVljw5WpHeu7xs 90zEDwh7O5yMU2GNbrHMC xvD0lKHkdWoS7 AUFnVyWzrD88mKBmHYefD u7ytHlhuMteOQ0yWQNgtg unNSEnqD0xTCDzqFZslQf sMF4eQZTupgay t832ZjPnFAL5NQDrjVZnD 3NifA9iRxUcZNJaZNTwT4 TqgOMaBWqgL538YQxmEiU 4BCSgcpIgP8Jk LWQotEzgUzR0s7T4Nk3Ft 8JysvdyWAC9VOajJEXiPn S8FkFuVoI6O9YvJtg6UHK brMvxDS1vY6Pj NWDfoqprgmcdzVF8ETHyA BDzeV36gXZoYYdjWg1ax4 J8z165CYRdOXIlqU45No2 udDogMTBwdCBU pW8ycseng8nrjwnrLoXdH TObUDg7SPf2VEOpdLjfKt XdBHJ3VnK4HLP2tVXxxB9 bxEcmxmincD6y Oyc+X50myU8xHEY2LDC8n ftcWLJjebNcTJ24ED74U0 RyPjwvdGFibGU+PGRpdiB rfOnnIX5hZtMb z3cqd4QaPSmnS3GaGNHnI UepJzh1FEFzPFL4jDJ5mD 4fWZOzEEpxi3Z8uBA8O6D ovaKsjp8zq6hh AXOyMNqbP94jmTIzc8S8S WFnlJC3IOLqfDpvXwYnkV 93Oyc+BQNktStuh0BoOln ht3hzw0sszLs5 KwNySUDcqcFsxDzuJNG5w 4FbIh17E91rFVboXADiKM XjCMZiGVZamPessg7tjZ4 wIi8+PGNvbCB3 wZE3wN1gLLSbZtG5KYvvJ 482YuDegMKeDtriv2nzp9 sgnMq9SkJpTIQorqWwaFa rDQM4k6NnPd01 X80vGEdfXWLbLRItTGUeJ BQwhWiipf5ieA5zBi6+PC 0jl9jgrm27xB51uNC+PHR qWXF7nCnzXLag ANGgbO5zLZzsXjS8FWHeT mZduU76gRLrPPavIo6fvL agvNodOE7iNLGxvqhex36 4DfUdk0hoLJAv cUKkUTiwCYU4B10ss5H5I KOhGWUvWFZ6qTO5pS8udM lnbjogbGVmdDsgdmVydGl uNCeaDZvjL824 IHRvcDsnPlBhdGllbnQgT aLhXVv0Q0PuTxv4BMMcxM paPP7jjGDtSHxwIl7pzWz ehWslHY1yOJKa hmujw337XdGae8bcIIRst MGdIAvcRCK5J51ch9O2OV ZoKUEvRSD2oPV3vN2bhRf nbjogbGVmdDsg cpHqrTkdHJciDSdeE965E HRvcDsnPkJpcnRoIERhdG E9CK82EY65yCZbq8C5aSI 8G1MdFKFuxlzi szgmrUU2KHRiFBSieU14Y i3qoPowXj6pRGKrWBD9YH OxfBJaI5QkcI3eCpTsIOM rKSMuH4OrqRLa DZbdY320PYbcOiB5RXFji jMeF7GbDFBhgYxgTgP5f7 G4Ur6FV1M7CK97YO21tKV oz3N7tTD9U3Uk LJTjrkzjmlreoAE5DPKxG UHscH64Cn4eeImsHv2wHZ ZeMSB7IXNhxCMpY4LmxX3 yOiAjMDAwMDAw X2NcmZBiWJvbZ612SDjyB aE0CDOeusSlJ9BwPPHocO zxFyB9i7D4Gq1VFUv7AJ3 1YE62gPByo0H2 pYM6K5MaOVMxpudexyqro JG3SERrAVItbO59Dy5kaI ggKp8rKRFbZFG0LZMffNU nJ2NhzY7jXmIi OMAeUUWeK4HtgWIoFPpvF 525HDbeSnK6CDPsqyTkR2 WzFYYmqXooGoI3u7W2Ja9 LZSDhFB04IFO1 hTG7OE28EQ07N9DnWkang GFibGU+PHRhYmxlIHdpZH RoPScxMDAlJyBzdHlsZT0 jZm2xBQMkXPDe gXzjqUHcGrZrs7gqQDTdD HhrEM5okMcgE9BtqUD7RV Fhv7g6Ez96F52sH7BtsUK +XBNieGM7tTV8 lB2mXeGkJlP4VXuaH192C oJhgBGwAaths1oto7hluB y5OrH7OELpwqAuvQsvHVX 0m1JtAq63E52u IHdpZHRoPSIxNSUiIHZhb Omikp0jkB8dUq7+PGNvbC I9qNT8oU5xWrHiVsS0IWj qH475JxWioPVb Yhclz3yfu8zrxQj3SrZsD XLolyIkbNnmTSP2m3UfXd 19P6GurCfvy2TkGqu8gx5 6zGEgk8P4vCT8 Z1FxNMPylfkobIIerPhlC R6fGSRxpstjOWPmfF1tKD KvR7b7OgCqGdS0SXqxI8J tqrX5FZSkwCHo QHllLHX9P74in3D4YSGpV XKrRCX4uKX9uV9ciIljnn ogbGVmdDsgdmVydGljYWw iXJvcZ706OFBn tYyoRGIlbZ0yLYPdpSWdo AydBM8pLDAqazlcMnRIZV dBQiwgQlJBWURFTiBTVEF HIXGJTB76QB56 aUKcr1J3aRE1R7XdIOIwj msooxuyaPK0QICaDMOzpM 98tTEiCQfdOf9oj1V3v31 1LLQfNXFryK31 Rq4itZenNYMaaWYFeF6tc jlxr1bmtcnzWsSuDCNxUW g0JVy1BIPolNuvEwFkQGX 5ZuB4EFL0pJMr kY5cuDvptmqzmD5cAng+M DEvMTcvMjAwMzwvdGQ+PH DdYPX6dPciEHdaAOIpvD8 wEOToD1w9EfYh OnL1JOkaB0UvYFJlekofU j66eW3uWyEcOgD2GWzlV1 VehuV0CBMtxXHyFUjlZXN 6F63pd7D0CVWn XLPfMJL9oBY1dU8zgRfwz jogbGVmdDsgdmVydGljYW gjDXtxM032FAExmXcaZyM wYMvsDQGvBN98 VO35qVTyi7J3bTA6G5WlF CIzsvxjavwzqUQ8JHIyVC UeaA28tTWiJUjfZg6za1C 0g389ERYkMEQd pC74Ry4rxMwaGVOpeCXNt S5hlhrwd5hjvxjtZwPtUI WlRVq3OLv9DAPghUcmBsB zNRP7IjX0ROE8 cRVtzN6tgXuhxtwfqT0zH yc+TUFMRTwvdGQ+PHRkIH Z2mVjlWTjcRMTlfO2sYQE rF8q0KlFfOzU0 AKygW0EoNPNtagaiMr60b S6iRlAgUbF7KVonI3Rbtf U3FXPpiHLbFCjhSYW2V48 if0Z0PHKzYKJg XSI8hYG5aT4ggWihaftxx GVmdDsgdmVydGljYWwtYW vdR478WOLjbFdcBd9LNR5 3ID99A0RfAchy dGFibGU+PHRhYmxlIHdpZ HRoPScxMDAlJyBzdHlsZT 4pXe4rKXMgQXZaiLdixID iXbJop9noBHLm DQphEM2blLhhK1QyiGJ2U KLin3n0Uq97U51vB1AakN A+ICWlrWL1yJK5xK2tJbF bAdF6UHrjC624 UhMekUKjYnvtc7nxj5xkk Kp3NuUzXCAqxsYjoIrbWU Z5s7XoIl40I44nHHoiJOT oPSIyMCUiIHZh nXgfww8sxW0lUd8+PGNvb SW3cUI9xW8eRaElKaT7VQ qsU045IhXhrSHcQowtX15 xY0HwkJC+PHRy Dlr3VWVquLqpGY1knKZlO YleRg2iAQY7EtXyNpEtWY bnN4QgTPRurendvyltuEA 1YQQtKGOqiG33 Qr7lzRqtEc2sGHTsCEL0O UXkmIHpH0GmaD7vMzCbYW VhDSBbM4DgpDAlGKmgW60 2KJrtXwB0YSDm olTwR7ZpBAHjdEtjEyY4n 3Z0Ou0IkXnlmOShYN4lZa SpLCx6P0SrKsi5KKPjjMd bBW2hoBUoLBmp Tt0jsItksXkhDB6oTOOnw kbaw944LjJjq4syAZXbcI VrZOphQKO5L97pu5H0QVE eUEBaYEM7fLQ8 yD9lsAucbywkqPEinNutu uPcpXqeIFjxJUfuY734UN YxiHezNvULPuy6W5VeBlz 8BZFweTmkYT8o fWHyQVfpEg1gqJvusCuhJ D1eWRAkwmxms931KjEik1 sgSONbcDTqRFhgIJD6A71 qz5I3VZSdHOKd VRU8oBY2eD4dgLgyrfmnu GVmdDsgdmVydGljYWwtYW lvJ629DXGisAtuIp7XQyv 3E0BsJgg2EOKd uFshIC9uxEQsTUamDy5bt QhgoPsnLN0dPSCxuzsdd8 77XsAkt6izGJYccDGsDWf pVQV4V78tj8G8 LDCbVRIaLTR8uNB1cD6sl GlnbjogbGVmdDsgdmVydG xpRSfnHHxyN173TUIeqLp nPlBheWVyOjwv dGQ+KH02vp05B1JvZwgjX nh3MUVyRFC8jRG5bZ8lCN BgRNeky1O4gGB3F9RqblL jpq1cg0soVKAn ZTo (more content not included)... Normal ED Clinical Summaryon 2022 ED Clinical Summary ? Urgent Care [address] [place] [address] Clinical Summary PERSON INFORMATION Name: BHAVESH KWONG Age: 22 Years Sex: MALE : 2000 MRN: Acct#: Visit Reason: UC - Ear Problem; LEFT EAR PROBLEM Arrival: 05/12/2022 10:40:34 Discharge: 05/12/2022 12:08:00 LOS: 000 01:28 Check In: 05/12/2022 10:40:34 Checkout: 05/12/2022 12:08:00 Address: [address] [place] [address] PCP: Provider, None PROVIDER INFORMATION Provider Role Assigned Unassigned Virginia Llanes PA-C ED PA 05/12/2022 10:45:10 Mandeep RN, Sindy Perkins ED [...] Plan Diagnosis Impacted cerumen of both ears ([id number] H61.23, Discharge, Medical) Plan Condition: Stable. Disposition: [...] bhakti verbalizes understanding of instructions given Comment: [facility] ED Note - Provideron 023 ED Note - Provider Patient: BHAVESH KWONG Age: 22 years Sex: MALE : 2000 Associated Diagnoses: Impacted cerumen of both ears Author: Shraddha POSADA, Virginia Tucker Basic Information Time seen: Date & time [...] Plan Diagnosis Impacted cerumen of both ears ([id number] H61.23, Discharge, Medical) Plan Condition: Stable. Disposition: [...] on: 05/12/2022 12:05 EST] Virginia Llanes PA-C [facility] ED Patient Summaryon 023 ED Patient Summary ? Urgent Care [address] [place] [address] PATIENT DISCHARGE INSTRUCTIONS Patient Information Name: BHAVESH KWONG Age: 22 Years Date of : 2000 Reason For Visit: UC - Ear Problem; LEFT EAR PROBLEM Arrival Time: 05/12/2022 10:40:34 Primary Care Physician: Provider, None Attending Physician: Virginia Llanes PA-C Comment: Patient [...] Follow these instructions at home: ? Take whoc-jxf-nymdgss and prescription medicines only as told by [...] clean them according to instructions from the junior systems administrator and your health care provider. Contact a [...] care provider. (more content not included)... Normal [facility] 023 Urgent Care Record ? Urgent Care [address] [place] [address] PATIENT DISCHARGE INSTRUCTIONS Patient Information Name: BHAVESH KWONG Age: 22 Years Date of : 2000 Reason For Visit: UC - Ear Problem; LEFT EAR PROBLEM Arrival Time: 05/12/2022 10:40:34 Primary Care Physician: Provider, None Attending Physician: Virginia Llanes PA-C Comment: Visit Diagnosis: Diagnoses This Visit Impacted cerumen of both ears (H61.23) UC - Ear Problem ([id number]) If you received any narcotics, sedation, or [...] and treatment you received today in the [facility] were for an urgent problem and are not intended as complete care. It is important for you to follow up with a doctor, nurse practitioner, or physician?s plumber assistant for ongoing care. If your symptoms [...] so we can reach you if necessary. Urgent Care has provided you with a complete list of medications post discharge. Please inform your tin stacker/provider of your visit and for further instruction [...] or an itchy (more content not included)... Normal CBC AUTO DIFFon 03-16-2022 BASO # 0.0 103/ul Normal 0.0-0.1 [facility] Comment on above: Performed By: #### C RP, LIVER, BMP #### [facility] [address] [address] [address] Raymundo Rodriguez Basophils/100 WBC (Bld) 0.5 % Normal 0.2-2.0 [facility] Comment on above: Performed By: #### C RP, LIVER, BMP #### [facility] [address] [address] [address] Raymundo Rodriguez EO # 0.1 103/ul Normal 0.0-0.7 [facility] Comment on above: Performed By: #### C RP, LIVER, BMP #### [facility] [address] [address] [address] Raymundo Rodriguez Eosinophils/100 WBC (Bld) 2.5 % Normal 0.9-7.0 [facility] Comment on above: Performed By: #### C RP, LIVER, BMP #### [facility] [address] [address] [address] Raymundo Rodriguez Erythrocyte distribution width (RBC) [Ratio] 11.9 % Normal 11.0-15.0 [facility] Comment on above: Performed By: #### C RP, LIVER, BMP #### [facility] [address] [place] [address] Dr. Raymundo Rodriguez Hematocrit (Bld) [Volume fraction] 45.4 % Normal 42.0-54.0 [facility] Comment on above: Performed By: #### C RP, LIVER, BMP #### [facility] [address] [place] [address] Dr. Raymundo Rodriguez Hemoglobin (Bld) [Mass/Vol] 15.3 g/dL Normal 14.0-18.0 [facility] Comment on above: Performed By: #### C RP, LIVER, BMP #### [facility] [address] [place] [address] Dr. Raymundo Rodriguez IG # 0.01 10e3/ul Normal 0.00-0.03 [facility] Comment on above: Performed By: #### C RP, LIVER, BMP #### [facility] [address] [place] [address] Dr. Raymundo Rodriguez IG % 0.3 % Normal 0.0-0.5 [facility] Comment on above: Performed By: #### C RP, LIVER, BMP #### [facility] [address] [place] [address] Dr. Raymundo Rodriguez LYMPH # 1.2 103/ul Normal 1.2-3.8 [facility] Comment on above: Performed By: #### C RP, LIVER, BMP #### [facility] [address] [place] [address] Dr. Raymundo Rodriguez Lymphocytes/100 WBC (Bld) 29.1 % Normal 20.5-60.0 [facility] Comment on above: Performed By: #### C RP, LIVER, BMP #### [facility] [address] [place] [address] Dr. Raymundo Rodriguez MANUAL DIFF REQ NO Normal [facility] Comment on above: Performed By: #### C RP, LIVER, BMP #### [facility] [address] [place] [address] Dr. Raymundo Rodriguez MCH (RBC) [Entitic mass] 30.3 pg Normal 25.9-34.0 [facility] Comment on above: Performed By: #### C RP, LIVER, BMP #### [facility] [address] [place] [address] Dr. Raymundo Rodriguez MCHC (RBC) [Mass/Vol] 33.7 g/dL Normal 29.9-35.2 [facility] Comment on above: Performed By: #### C RP, LIVER, BMP #### [facility] [address] [place] [address] Dr. Raymundo Rodriguez MCV (RBC) [Entitic vol] 89.9 fL Normal 80.0-94.0 [facility] Comment on above: Performed By: #### C RP, LIVER, BMP #### [facility] [address] [place] [address] Dr. Raymundo Rodriguez MONO # 0.4 103/ul Normal 0.3-0.8 [facility] Comment on above: Performed By: #### C RP, LIVER, BMP #### [facility] [address] [place] [address] Dr. Raymundo Rodriguez Monocytes/100 WBC (Bld) 9.5 % Normal 1.7-12.0 [facility] Comment on above: Performed By: #### C RP, LIVER, BMP #### [facility] [address] [place] [address] Dr. Raymundo Rodriguez NEUT # 2.3 103/ul Normal 1.4-6.5 [facility] Comment on above: Performed By: #### C RP, LIVER, BMP #### [facility] [address] [place] [address] Dr. Raymundo Rodriguez Neutrophils/100 WBC (Bld) 58.1 % Normal 43.0-75.0 [facility] Comment on above: Performed By: #### C RP, LIVER, BMP #### [facility] [address] [place] [address] Dr. Raymundo Rodriguez Platelet mean volume (Bld) [Entitic vol] 11.0 fL Normal 9.5-13.5 [facility] Comment on above: Performed By: #### C RP, LIVER, BMP #### [facility] [address] [address] [address] Raymundo Rodriguez PLT 179 103/ul Normal 150-450 [facility] Comment on above: Performed By: #### C RP, LIVER, BMP #### [facility] [address] [place] [address] Dr. Raymundo Rodriguez RBC 5.05 106/ul Normal 4.70-6.10 [facility] Comment on above: Performed By: #### C RP, LIVER, BMP #### [facility] [address] [place] [address] Dr. Raymundo Rodriguez WBC 4.0 103/ul Normal 4.0-11.0 [facility] Comment on above: Performed By: #### C RP, LIVER, BMP #### [facility] [address] [place] [address] Dr. Raymundo Rodriguez CRPon 03-16-2022 CRP [Mass/Vol] mg/L Normal <=1.0 [facility] Comment on above: Performed By: #### C RP, LIVER, BMP #### [facility] [address] [place] [address] Dr. Raymundo Rodriguez LIVER PROFILEon 03-16-2022 Albumin [Mass/Vol] 3.5 g/dL Normal 3.4-5.0 [facility] Comment on above: Performed By: #### C RP, LIVER, BMP #### [facility] [address] [place] [address] Dr. Raymundo Rodriguez Albumin/Globulin [Mass ratio] 0.9 {ratio} Normal [facility] Comment on above: Performed By: #### C RP, LIVER, BMP #### [facility] [address] [place] [address] Dr. Raymundo Rodriguez ALP [Catalytic activity/Vol] 77 U/L Normal 46-116 [facility] Comment on above: Performed By: #### C RP, LIVER, BMP #### [facility] [address] [place] [address] Dr. Raymundo Rodriguez ALT [Catalytic activity/Vol] 21 U/L Normal 16-63 [facility] Comment on above: Performed By: #### C RP, LIVER, BMP #### [facility] [address] [place] [address] Dr. Raymundo Rodriguez AST [Catalytic activity/Vol] 18 U/L Normal 15-37 [facility] Comment on above: Performed By: #### C RP, LIVER, BMP #### [facility] [address] [place] [address] Dr. Raymundo Rodriguez BILI, CONJUGATED 0.1 mg/dL Normal 0.0-0.2 [facility] Comment on above: Performed By: #### C RP, LIVER, BMP #### [facility] [address] [place] [address] Dr. Raymundo Rodriguez Bilirubin [Mass/Vol] 0.6 mg/dL Normal 0.2-1.0 [facility] Comment on above: Performed By: #### C RP, LIVER, BMP #### [facility] [address] [place] [address] Dr. Raymundo Rodriguez Globulin (S) [Mass/Vol] 3.8 g/dL Normal [facility] Comment on above: Performed By: #### C RP, LIVER, BMP #### [facility] [address] [place] [address] Dr. Raymundo Rodriguez Protein [Mass/Vol] 7.3 g/dL Normal 6.4-8.2 [facility] Comment on above: Performed By: #### C RP, LIVER, BMP #### [facility] [address] [place] [address] Dr. Raymundo Rodriguez PROF CHEM 8 (BAS METB)on Anion gap [Moles/Vol] 9.3 mmol/L Normal [facility] Comment on above: Performed By: #### C RP, LIVER, BMP #### [facility] [address] [place] [address] Dr. Raymundo Rodriguez Calcium [Mass/Vol] 8.7 mg/dL Normal 8.5-10.1 [facility] Comment on above: Performed By: #### C RP, LIVER, BMP #### [facility] [address] [address] [address] Raymundo Rodriguez Chloride [Moles/Vol] 102 mmol/L Normal 98-107 [facility] Comment on above: Performed By: #### C RP, LIVER, BMP #### [facility] [address] [address] [address] Raymundo Rodriguez CO2 [Moles/Vol] 32.3 mmol/L Critically high 21.0-32.0 [facility] Comment on above: Performed By: #### C RP, LIVER, BMP #### [facility] [address] [address] [address] Raymundo Rodriguez Creatinine [Mass/Vol] 1.14 mg/dL Normal 0.70-1.30 [facility] Comment on above: Performed By: #### C RP, LIVER, BMP #### [facility] [address] [place] [address] Dr. Raymundo Rodriguez EGFR-AF STATELESS >60 Normal >=60 [facility] Comment on above: Performed By: #### C RP, LIVER, BMP #### [facility] [address] [place] [address] Dr. Raymundo Rodriguez EGFR-NON AF STATELESS >60 Normal >=60 [facility] Comment on above: Performed By: #### C RP, LIVER, BMP #### [facility] [address] [place] [address] Dr. Raymundo Rodriguez Glucose [Mass/Vol] 92 mg/dL Normal 74-106 [facility] Comment on above: Performed By: #### C RP, LIVER, BMP #### [facility] [address] [place] [address] Dr. Raymundo Rodriguez Potassium [Moles/Vol] 3.6 mmol/L Normal 3.5-5.1 [facility] Comment on above: Performed By: #### C RP, LIVER, BMP #### [facility] [address] [address] [address] Raymundo Rodriguez Sodium [Moles/Vol] 140 mmol/L Normal 136-145 [facility] Comment on above: Performed By: #### C RP, LIVER, BMP #### [facility] [address] [place] [address] Dr. Raymundo Rodriguez Urea nitrogen [Mass/Vol] 14.0 mg/dL Normal 6.4-19.3 [facility] Comment on above: Performed By: #### C RP, LIVER, BMP #### [facility] [address] [place] [address] Dr. Raymundo Rodriguez Urea nitrogen/Creatinine [Mass ratio] 12.3 mg/mg Normal [facility] Comment on above: Performed By: #### C RP, LIVER, BMP #### [facility] [address] [place] [address] Dr. Raymundo Rodriguez [facility] SED RATE 11 mm/hr Normal <=15 [facility] Comment on above: Performed By: #### S EDR #### [facility] [address] [place] [address] Dr. Raymundo Rodriguez CBC AUTO DIFFon 01-12-2022 BASO # 0.0 103/ul Normal 0.0-0.1 [facility] Comment on above: Performed By: #### C RP, LIVER, BMP #### [facility] [address] [place] [address] Dr. Raymundo Rodriguez Basophils/100 WBC (Bld) 0.6 % Normal 0.2-2.0 [facility] Comment on above: Performed By: #### C RP, LIVER, BMP #### [facility] [address] [place] [address] Dr. Raymundo Rodriguez EO # 0.1 103/ul Normal 0.0-0.7 [facility] Comment on above: Performed By: #### C RP, LIVER, BMP #### [facility] [address] [place] [address] Dr. Raymundo Rodriguez Eosinophils/100 WBC (Bld) 2.6 % Normal 0.9-7.0 [facility] Comment on above: Performed By: #### C RP, LIVER, BMP #### [facility] [address] [place] [address] Dr. Raymundo Rodriguez Erythrocyte distribution width (RBC) [Ratio] 12.4 % Normal 11.0-15.0 [facility] Comment on above: Performed By: #### C RP, LIVER, BMP #### [facility] [address] [place] [address] Dr. Raymundo Rodriguez Hematocrit (Bld) [Volume fraction] 45.0 % Normal 42.0-54.0 [facility] Comment on above: Performed By: #### C RP, LIVER, BMP #### [facility] [address] [place] [address] Dr. Raymundo Rodriguez Hemoglobin (Bld) [Mass/Vol] 15.3 g/dL Normal 14.0-18.0 [facility] Comment on above: Performed By: #### C RP, LIVER, BMP #### [facility] [address] [place] [address] Dr. Raymundo Rodriguez IG # 0.02 10e3/ul Normal 0.00-0.03 [facility] Comment on above: Performed By: #### C RP, LIVER, BMP #### [facility] [address] [place] [address] Dr. Raymundo Rodriguez IG % 0.4 % Normal 0.0-0.5 [facility] Comment on above: Performed By: #### C RP, LIVER, BMP #### [facility] [address] [place] [address] Dr. Raymundo Rodriguez LYMPH # 1.3 103/ul Normal 1.2-3.8 [facility] Comment on above: Performed By: #### C RP, LIVER, BMP #### [facility] [address] [place] [address] Dr. Raymundo Rodriguez Lymphocytes/100 WBC (Bld) 23.7 % Normal 20.5-60.0 [facility] Comment on above: Performed By: #### C RP, LIVER, BMP #### [facility] [address] [place] [address] Dr. Raymundo Rodriguez MANUAL DIFF REQ NO Normal [facility] Comment on above: Performed By: #### C RP, LIVER, BMP #### [facility] [address] [place] [address] Dr. Raymundo Rodriguez MCH (RBC) [Entitic mass] 30.5 pg Normal 25.9-34.0 [facility] Comment on above: Performed By: #### C RP, LIVER, BMP #### [facility] [address] [place] [address] Dr. Raymundo Rodriguez MCHC (RBC) [Mass/Vol] 34.0 g/dL Normal 29.9-35.2 [facility] Comment on above: Performed By: #### C RP, LIVER, BMP #### [facility] [address] [place] [address] Dr. Raymundo Rodriguez MCV (RBC) [Entitic vol] 89.6 fL Normal 80.0-94.0 [facility] Comment on above: Performed By: #### C RP, LIVER, BMP #### [facility] [address] [place] [address] Dr. Raymundo Rodriguez MONO # 0.5 103/ul Normal 0.3-0.8 [facility] Comment on above: Performed By: #### C RP, LIVER, BMP #### [facility] [address] [place] [address] Dr. Raymundo Rodriguez Monocytes/100 WBC (Bld) 9.0 % Normal 1.7-12.0 [facility] Comment on above: Performed By: #### C RP, LIVER, BMP #### [facility] [address] [place] [address] Dr. Raymundo Rodriguez NEUT # 3.4 103/ul Normal 1.4-6.5 [facility] Comment on above: Performed By: #### C RP, LIVER, BMP #### [facility] [address] [place] [address] Dr. Raymundo Rodriguez Neutrophils/100 WBC (Bld) 63.7 % Normal 43.0-75.0 [facility] Comment on above: Performed By: #### C RP, LIVER, BMP #### [facility] [address] [place] [address] Dr. Raymundo Rodriguez Platelet mean volume (Bld) [Entitic vol] 11.9 fL Normal 9.5-13.5 [facility] Comment on above: Performed By: #### C RP, LIVER, BMP #### [facility] [address] [place] [address] Dr. Raymundo Rodriguez PLT 184 103/ul Normal 150-450 [facility] Comment on above: Performed By: #### C RP, LIVER, BMP #### [facility] [address] [place] [address] Dr. Raymundo Rodriguez RBC 5.02 106/ul Normal 4.70-6.10 [facility] Comment on above: Performed By: #### C RP, LIVER, BMP #### [facility] [address] [place] [address] Dr. Raymundo Rodriguez WBC 5.3 103/ul Normal 4.0-11.0 [facility] Comment on above: Performed By: #### C RP, LIVER, BMP #### [facility] [address] [place] [address] Dr. Raymundo Rodriguez CRPon 01-12-2022 CRP [Mass/Vol] mg/L Normal <=1.0 [facility] Comment on above: Performed By: #### C RP, LIVER, BMP #### [facility] [address] [place] [address] Dr. Raymundo Rodriguez LIVER PROFILEon 01-12-2022 Albumin [Mass/Vol] 3.4 g/dL Normal 3.4-5.0 [facility] Comment on above: Performed By: #### C RP, LIVER, BMP #### [facility] [address] [place] [address] Dr. Raymundo Rodriguez Albumin/Globulin [Mass ratio] 0.9 {ratio} Normal [facility] Comment on above: Performed By: #### C RP, LIVER, BMP #### [facility] [address] [place] [address] Dr. Raymundo Rodriguez ALP [Catalytic activity/Vol] 95 U/L Normal 46-116 [facility] Comment on above: Performed By: #### C RP, LIVER, BMP #### [facility] [address] [place] [address] Dr. Raymundo Rodriguez ALT [Catalytic activity/Vol] 25 U/L Normal 16-63 [facility] Comment on above: Performed By: #### C RP, LIVER, BMP #### [facility] [address] [place] [address] Dr. Raymundo Rodriguez AST [Catalytic activity/Vol] 23 U/L Normal 15-37 [facility] Comment on above: Performed By: #### C RP, LIVER, BMP #### [facility] [address] [place] [address] Dr. Raymundo Rodriguez BILI, CONJUGATED 0.1 mg/dL Normal 0.0-0.2 [facility] Comment on above: Performed By: #### C RP, LIVER, BMP #### [facility] [address] [place] [address] Dr. Raymundo Rodriguez Bilirubin [Mass/Vol] 0.5 mg/dL Normal 0.2-1.0 [facility] Comment on above: Performed By: #### C RP, LIVER, BMP #### [facility] [address] [place] [address] Dr. Raymundo Rodriguez Globulin (S) [Mass/Vol] 3.8 g/dL Normal [facility] Comment on above: Performed By: #### C RP, LIVER, BMP #### [facility] [address] [place] [address] Dr. Raymundo Rodriguez Protein [Mass/Vol] 7.2 g/dL Normal 6.4-8.2 [facility] Comment on above: Performed By: #### C RP, LIVER, BMP #### [facility] [address] [place] [address] Dr. Raymundo Rodriguez PROF CHEM 8 (BAS METB)on Anion gap [Moles/Vol] 11.5 mmol/L Normal [facility] Comment on above: Performed By: #### C RP, LIVER, BMP #### [facility] [address] [place] [address] Dr. Raymundo Rodriguez Calcium [Mass/Vol] 8.4 mg/dL Critically low 8.5-10.1 [facility] Comment on above: Performed By: #### C RP, LIVER, BMP #### [facility] [address] [address] [address] Raymundo Rodriguez Chloride [Moles/Vol] 106 mmol/L Normal 98-107 [facility] Comment on above: Performed By: #### C RP, LIVER, BMP #### [facility] [address] [address] [address] Raymundo Rodriguez CO2 [Moles/Vol] 28.3 mmol/L Normal 21.0-32.0 [facility] Comment on above: Performed By: #### C RP, LIVER, BMP #### [facility] [address] [address] [address] Raymundo Rodriguez Creatinine [Mass/Vol] 1.01 mg/dL Normal 0.70-1.30 [facility] Comment on above: Performed By: #### C RP, LIVER, BMP #### [facility] [address] [place] [address] Dr. Raymundo Rodriguez EGFR-AF STATELESS >60 Normal >=60 [facility] Comment on above: Performed By: #### C RP, LIVER, BMP #### [facility] [address] [place] [address] Dr. Raymundo Rodriguez EGFR-NON AF STATELESS >60 Normal >=60 [facility] Comment on above: Performed By: #### C RP, LIVER, BMP #### [facility] [address] [place] [address] Dr. Raymundo Rodriguez Glucose [Mass/Vol] 80 mg/dL Normal 74-106 [facility] Comment on above: Performed By: #### C RP, LIVER, BMP #### [facility] [address] [address] [address] Raymundo Rodriguez Potassium [Moles/Vol] 3.8 mmol/L Normal 3.5-5.1 [facility] Comment on above: Performed By: #### C RP, LIVER, BMP #### [facility] [address] [address] [address] Raymundo Rodriguez Sodium [Moles/Vol] 142 mmol/L Normal 136-145 [facility] Comment on above: Performed By: #### C RP, LIVER, BMP #### [facility] [address] [place] [address] Dr. Raymundo Rodriguez Urea nitrogen [Mass/Vol] 12.0 mg/dL Normal 6.4-19.3 [facility] Comment on above: Performed By: #### C RP, LIVER, BMP #### [facility] [address] [place] [address] Dr. Raymundo Rodriguez Urea nitrogen/Creatinine [Mass ratio] 11.9 mg/mg Normal [facility] Comment on above: Performed By: #### C RP, LIVER, BMP #### [facility] [address] [place] [address] Dr. Raymundo Rodriguez [facility] 11 mm/hr Normal <=15 [facility] Comment on above: Performed By: #### C RP, LIVER, BMP #### [facility] [address] [place] [address] Dr. Raymundo Rodriguez CBC AUTO DIFFon 11-10-2021 BASO # 0.0 103/ul Normal 0.0-0.1 [facility] Comment on above: Performed By: #### C BC #### [facility] [address] [place] [address] Dr. Raymundo Rodriguez Basophils/100 WBC (Bld) 0.5 % Normal 0.2-2.0 [facility] Comment on above: Performed By: #### C BC #### [facility] [address] [place] [address] Dr. Raymundo Rodriguez EO # 0.1 103/ul Normal 0.0-0.7 [facility] Comment on above: Performed By: #### C BC #### [facility] [address] [place] [address] Dr. Raymundo Rodriguez Eosinophils/100 WBC (Bld) 2.3 % Normal 0.9-7.0 [facility] Comment on above: Performed By: #### C BC #### [facility] [address] [place] [address] Dr. Raymundo Rodriguez Erythrocyte distribution width (RBC) [Ratio] 11.8 % Normal 11.0-15.0 [facility] Comment on above: Performed By: #### C BC #### [facility] [address] [place] [address] Dr. Raymundo Rodriguez Hematocrit (Bld) [Volume fraction] 45.2 % Normal 42.0-54.0 [facility] Comment on above: Performed By: #### C BC #### [facility] [address] [place] [address] Dr. Raymundo Rodriguez Hemoglobin (Bld) [Mass/Vol] 15.3 g/dL Normal 14.0-18.0 [facility] Comment on above: Performed By: #### C BC #### [facility] [address] [place] [address] Dr. Raymundo Rodriguez IG # 0.01 10e3/ul Normal 0.00-0.03 [facility] Comment on above: Performed By: #### C BC #### [facility] [address] [place] [address] Dr. Raymundo Rodriguez IG % 0.2 % Normal 0.0-0.5 [facility] Comment on above: Performed By: #### C BC #### [facility] [address] [place] [address] Dr. Raymundo Rodriguez LYMPH # 1.6 103/ul Normal 1.2-3.8 [facility] Comment on above: Performed By: #### C BC #### [facility] [address] [place] [address] Dr. Raymundo Rodriguez Lymphocytes/100 WBC (Bld) 36.2 % Normal 20.5-60.0 [facility] Comment on above: Performed By: #### C BC #### [facility] [address] [place] [address] Dr. Raymundo Rodriguez MANUAL DIFF REQ NO Normal [facility] Comment on above: Performed By: #### C BC #### [facility] [address] [place] [address] Dr. Raymundo Rodriguez MCH (RBC) [Entitic mass] 30.9 pg Normal 25.9-34.0 [facility] Comment on above: Performed By: #### C BC #### [facility] [address] [address] [address] Raymundo Rodriguez MCHC (RBC) [Mass/Vol] 33.8 g/dL Normal 29.9-35.2 [facility] Comment on above: Performed By: #### C BC #### [facility] [address] [address] [address] Raymundo Rodriguez MCV (RBC) [Entitic vol] 91.3 fL Normal 80.0-94.0 [facility] Comment on above: Performed By: #### C BC #### [facility] [address] [place] [address] Dr. Raymundo Rodriguez MONO # 0.4 103/ul Normal 0.3-0.8 [facility] Comment on above: Performed By: #### C BC #### [facility] [address] [place] [address] Dr. Raymundo Rodriguez Monocytes/100 WBC (Bld) 8.9 % Normal 1.7-12.0 [facility] Comment on above: Performed By: #### C BC #### [facility] [address] [place] [address] Dr. Raymundo Rodriguez NEUT # 2.3 103/ul Normal 1.4-6.5 [facility] Comment on above: Performed By: #### C BC #### [facility] [address] [place] [address] Dr. Raymundo Rodriguez Neutrophils/100 WBC (Bld) 51.9 % Normal 43.0-75.0 [facility] Comment on above: Performed By: #### C BC #### [facility] [address] [address] [address] Raymundo Rodriguez Platelet mean volume (Bld) [Entitic vol] 11.5 fL Normal 9.5-13.5 [facility] Comment on above: Performed By: #### C BC #### [facility] [address] [place] [address] Dr. Raymundo Rodriguez PLT 157 103/ul Normal 150-450 [facility] Comment on above: Performed By: #### C BC #### [facility] [address] [place] [address] Dr. Raymundo Rodriguez RBC 4.95 106/ul Normal 4.70-6.10 [facility] Comment on above: Performed By: #### C BC #### [facility] [address] [place] [address] Dr. Raymundo Rodriguez WBC 4.4 103/ul Normal 4.0-11.0 [facility] Comment on above: Performed By: #### C BC #### [facility] [address] [place] [address] Dr. Raymundo Rodriguez CRPon 11-10-2021 CRP [Mass/Vol] mg/L Normal <=1.0 [facility] Comment on above: Performed By: #### C RP, LIVER, BMP #### [facility] [address] [place] [address] Dr. Raymundo Rodriguez LIVER PROFILEon 11-10-2021 Albumin [Mass/Vol] 3.5 g/dL Normal 3.4-5.0 [facility] Comment on above: Performed By: #### C RP, LIVER, BMP #### [facility] [address] [place] [address] Dr. Raymundo Rodriguez Albumin/Globulin [Mass ratio] 1.0 {ratio} Normal [facility] Comment on above: Performed By: #### C RP, LIVER, BMP #### [facility] [address] [place] [address] Dr. Raymundo Rodriguez ALP [Catalytic activity/Vol] 83 U/L Normal 46-116 [facility] Comment on above: Performed By: #### C RP, LIVER, BMP #### [facility] [address] [place] [address] Dr. Raymundo Rodriguez ALT [Catalytic activity/Vol] 22 U/L Normal 16-63 [facility] Comment on above: Performed By: #### C RP, LIVER, BMP #### [facility] [address] [place] [address] Dr. Raymundo Rodriguez AST [Catalytic activity/Vol] 16 U/L Normal 15-37 [facility] Comment on above: Performed By: #### C RP, LIVER, BMP #### [facility] [address] [place] [address] Dr. Raymundo Rodriguez BILI, CONJUGATED 0.1 mg/dL Normal 0.0-0.2 [facility] Comment on above: Performed By: #### C RP, LIVER, BMP #### [facility] [address] [place] [address] Dr. Raymundo Rodriguez Bilirubin [Mass/Vol] 0.3 mg/dL Normal 0.2-1.0 [facility] Comment on above: Performed By: #### C RP, LIVER, BMP #### [facility] [address] [place] [address] Dr. Raymundo Rodriguez Globulin (S) [Mass/Vol] 3.5 g/dL Normal [facility] Comment on above: Performed By: #### C RP, LIVER, BMP #### [facility] [address] [place] [address] Dr. Raymundo Rodriguez Protein [Mass/Vol] 7.0 g/dL Normal 6.4-8.2 [facility] Comment on above: Performed By: #### C RP, LIVER, BMP #### [facility] [address] [place] [address] Dr. Raymundo Rodriguez PROF CHEM 8 (BAS METB)on Anion gap [Moles/Vol] 11.8 mmol/L Normal [facility] Comment on above: Performed By: #### C RP, LIVER, BMP #### [facility] [address] [place] [address] Dr. Raymundo Rodriguez Calcium [Mass/Vol] 8.5 mg/dL Normal 8.5-10.1 [facility] Comment on above: Performed By: #### C RP, LIVER, BMP #### [facility] [address] [place] [address] Dr. Raymundo Rodriguez Chloride [Moles/Vol] 106 mmol/L Normal 98-107 [facility] Comment on above: Performed By: #### C RP, LIVER, BMP #### [facility] [address] [address] [address] Raymundo Rodriguez CO2 [Moles/Vol] 27.9 mmol/L Normal 21.0-32.0 [facility] Comment on above: Performed By: #### C RP, LIVER, BMP #### [facility] [address] [address] [address] Raymundo Rodriguez Creatinine [Mass/Vol] 1.22 mg/dL Normal 0.70-1.30 [facility] Comment on above: Performed By: #### C RP, LIVER, BMP #### [facility] [address] [address] [address] Raymundo Rodriguez EGFR-AF STATELESS >60 Normal >=60 [facility] Comment on above: Performed By: #### C RP, LIVER, BMP #### [facility] [address] [address] [address] Raymundo Rodriguez EGFR-NON AF STATELESS >60 Normal >=60 [facility] Comment on above: Performed By: #### C RP, LIVER, BMP #### [facility] [address] [place] [address] Dr. Raymundo Rodriguez Glucose [Mass/Vol] 108 mg/dL Critically high 74-106 [facility] Comment on above: Performed By: #### C RP, LIVER, BMP #### [facility] [address] [address] [address] Raymundo Rodriguez Potassium [Moles/Vol] 3.7 mmol/L Normal 3.5-5.1 [facility] Comment on above: Performed By: #### C RP, LIVER, BMP #### [facility] [address] [address] [address] Raymundo Rodriguez Sodium [Moles/Vol] 142 mmol/L Normal 136-145 [facility] Comment on above: Performed By: #### C RP, LIVER, BMP #### [facility] [address] [address] [address] Raymundo Rodriguez Urea nitrogen [Mass/Vol] 15.0 mg/dL Normal 6.4-19.3 [facility] Comment on above: Performed By: #### C RP, LIVER, BMP #### [facility] [address] [address] [address] Raymundo Rodriguez Urea nitrogen/Creatinine [Mass ratio] 12.3 mg/mg Normal [facility] Comment on above: Performed By: #### C RP, LIVER, BMP #### [facility] [address] [address] [address] Raymundo Rodriguez SED RATE WESTERGRENon 2021 SED RATE 8 mm/hr Normal <=15 [facility] Comment on above: Performed By: #### S EDR #### [facility] [address] [address] [address] Raymundo Rodriguez CBC AUTO DIFFon 09-08-2021 BASO # 0.0 103/ul Normal 0.0-0.1 [facility] Comment on above: Performed By: #### C RP, LIVER, BMP #### [facility] [address] [place] [address] Dr. Raymundo Rodriguez Basophils/100 WBC (Bld) 0.5 % Normal 0.2-2.0 [facility] Comment on above: Performed By: #### C RP, LIVER, BMP #### [facility] [address] [address] [address] Raymundo Rodriguez EO # 0.1 103/ul Normal 0.0-0.7 [facility] Comment on above: Performed By: #### C RP, LIVER, BMP #### [facility] [address] [address] [address] Raymundo Rodriguez Eosinophils/100 WBC (Bld) 1.6 % Normal 0.9-7.0 [facility] Comment on above: Performed By: #### C RP, LIVER, BMP #### [facility] [address] [address] [address] Raymundo Rodriguez Erythrocyte distribution width (RBC) [Ratio] 12.4 % Normal 11.0-15.0 [facility] Comment on above: Performed By: #### C RP, LIVER, BMP #### [facility] [address] [address] [address] Raymundo Rodriguez Hematocrit (Bld) [Volume fraction] 49.0 % Normal 42.0-54.0 [facility] Comment on above: Performed By: #### C RP, LIVER, BMP #### [facility] [address] [place] [address] Dr. Raymundo Rodriguez Hemoglobin (Bld) [Mass/Vol] 16.1 g/dL Normal 14.0-18.0 [facility] Comment on above: Performed By: #### C RP, LIVER, BMP #### [facility] [address] [place] [address] Dr. Raymundo Rodriguez IG # 0.01 10e3/ul Normal 0.00-0.03 [facility] Comment on above: Performed By: #### C RP, LIVER, BMP #### [facility] [address] [place] [address] Dr. Raymundo Rodriguez IG % 0.2 % Normal 0.0-0.5 [facility] Comment on above: Performed By: #### C RP, LIVER, BMP #### [facility] [address] [place] [address] Dr. Raymundo Rodriguez LYMPH # 0.9 103/ul Critically low 1.2-3.8 [facility] Comment on above: Performed By: #### C RP, LIVER, BMP #### [facility] [address] [place] [address] Dr. Raymundo Rodriguez Lymphocytes/100 WBC (Bld) 20.9 % Normal 20.5-60.0 [facility] Comment on above: Performed By: #### C RP, LIVER, BMP #### [facility] [address] [place] [address] Dr. Raymundo Rodriguez MANUAL DIFF REQ NO Normal [facility] Comment on above: Performed By: #### C RP, LIVER, BMP #### [facility] [address] [place] [address] Dr. Raymundo Rodriguez MCH (RBC) [Entitic mass] 30.7 pg Normal 25.9-34.0 [facility] Comment on above: Performed By: #### C RP, LIVER, BMP #### [facility] [address] [place] [address] Dr. Raymundo Rodriguez MCHC (RBC) [Mass/Vol] 32.9 g/dL Normal 29.9-35.2 [facility] Comment on above: Performed By: #### C RP, LIVER, BMP #### [facility] [address] [place] [address] Dr. Raymundo Rodriguez MCV (RBC) [Entitic vol] 93.5 fL Normal 80.0-94.0 [facility] Comment on above: Performed By: #### C RP, LIVER, BMP #### [facility] [address] [place] [address] Dr. Raymundo Rodriguez MONO # 0.5 103/ul Normal 0.3-0.8 [facility] Comment on above: Performed By: #### C RP, LIVER, BMP #### [facility] [address] [place] [address] Dr. Raymundo Rodriguez Monocytes/100 WBC (Bld) 11.2 % Normal 1.7-12.0 [facility] Comment on above: Performed By: #### C RP, LIVER, BMP #### [facility] [address] [place] [address] Dr. Raymundo Rodriguez NEUT # 2.9 103/ul Normal 1.4-6.5 [facility] Comment on above: Performed By: #### C RP, LIVER, BMP #### [facility] [address] [place] [address] Dr. Raymundo Rodriguez Neutrophils/100 WBC (Bld) 65.6 % Normal 43.0-75.0 [facility] Comment on above: Performed By: #### C RP, LIVER, BMP #### [facility] [address] [place] [address] Dr. Raymundo Rodriguez Platelet mean volume (Bld) [Entitic vol] 11.2 fL Normal 9.5-13.5 [facility] Comment on above: Performed By: #### C RP, LIVER, BMP #### [facility] [address] [place] [address] Dr. Raymundo Rodriguez PLT 174 103/ul Normal 150-450 [facility] Comment on above: Performed By: #### C RP, LIVER, BMP #### [facility] [address] [place] [address] Dr. Raymundo Rodriguez RBC 5.24 106/ul Normal 4.70-6.10 [facility] Comment on above: Performed By: #### C RP, LIVER, BMP #### [facility] [address] [place] [address] Dr. Raymundo Rodriguez WBC 4.4 103/ul Normal 4.0-11.0 [facility] Comment on above: Performed By: #### C RP, LIVER, BMP #### [facility] [address] [place] [address] Dr. Raymundo Rodriguez CRPon 09-08-2021 CRP [Mass/Vol] mg/L Normal <=1.0 [facility] Comment on above: Performed By: #### C RP, LIVER, BMP #### [facility] [address] [place] [address] Dr. Raymundo Rodriguez LIVER PROFILEon 09-08-2021 Albumin [Mass/Vol] 4.0 g/dL Normal 3.4-5.0 [facility] Comment on above: Performed By: #### C RP, LIVER, BMP #### [facility] [address] [place] [address] Dr. Raymundo Rodriguez Albumin/Globulin [Mass ratio] 1.0 {ratio} Normal [facility] Comment on above: Performed By: #### C RP, LIVER, BMP #### [facility] [address] [place] [address] Dr. Raymundo Rodriguez ALP [Catalytic activity/Vol] 104 U/L Normal 46-116 [facility] Comment on above: Performed By: #### C RP, LIVER, BMP #### [facility] [address] [place] [address] Dr. Raymundo Rodriguez ALT [Catalytic activity/Vol] 33 U/L Normal 16-63 [facility] Comment on above: Performed By: #### C RP, LIVER, BMP #### [facility] [address] [place] [address] Dr. Raymundo Rodriguez AST [Catalytic activity/Vol] 19 U/L Normal 15-37 [facility] Comment on above: Performed By: #### C RP, LIVER, BMP #### [facility] [address] [place] [address] Dr. Raymundo Rodriguez BILI, CONJUGATED 0.1 mg/dL Normal 0.0-0.2 [facility] Comment on above: Performed By: #### C RP, LIVER, BMP #### [facility] [address] [place] [address] Dr. Raymundo Rodriguez Bilirubin [Mass/Vol] 0.4 mg/dL Normal 0.2-1.0 [facility] Comment on above: Performed By: #### C RP, LIVER, BMP #### [facility] [address] [place] [address] Dr. Raymundo Rodriguez Globulin (S) [Mass/Vol] 3.9 g/dL Normal [facility] Comment on above: Performed By: #### C RP, LIVER, BMP #### [facility] [address] [place] [address] Dr. Raymundo Rodriguez Protein [Mass/Vol] 7.9 g/dL Normal 6.4-8.2 [facility] Comment on above: Performed By: #### C RP, LIVER, BMP #### [facility] [address] [place] [address] Dr. Raymundo Rodriguez PROF CHEM 8 (BAS METB)on Anion gap [Moles/Vol] 12.9 mmol/L Normal [facility] Comment on above: Performed By: #### C RP, LIVER, BMP #### [facility] [address] [place] [address] Dr. Raymundo Rodriguez Calcium [Mass/Vol] 9.1 mg/dL Normal 8.5-10.1 [facility] Comment on above: Performed By: #### C RP, LIVER, BMP #### [facility] [address] [place] [address] Dr. Raymundo Rodriguez Chloride [Moles/Vol] 106 mmol/L Normal 98-107 [facility] Comment on above: Performed By: #### C RP, LIVER, BMP #### [facility] [address] [address] [address] Raymundo Rodriguez CO2 [Moles/Vol] 27.9 mmol/L Normal 21.0-32.0 [facility] Comment on above: Performed By: #### C RP, LIVER, BMP #### [facility] [address] [address] [address] Raymundo Rodriguez Creatinine [Mass/Vol] 1.20 mg/dL Normal 0.70-1.30 [facility] Comment on above: Performed By: #### C RP, LIVER, BMP #### [facility] [address] [address] [address] Raymundo Rodriguez EGFR-AF STATELESS >60 Normal >=60 [facility] Comment on above: Performed By: #### C RP, LIVER, BMP #### [facility] [address] [place] [address] Dr. Raymundo Rodriguez EGFR-NON AF STATELESS >60 Normal >=60 [facility] Comment on above: Performed By: #### C RP, LIVER, BMP #### [facility] [address] [address] [address] Raymundo Rodriguez Glucose [Mass/Vol] 64 mg/dL Critically low 74-106 [facility] Comment on above: Performed By: #### C RP, LIVER, BMP #### [facility] [address] [address] [address] Raymundo Rodriguez Potassium [Moles/Vol] 3.8 mmol/L Normal 3.5-5.1 [facility] Comment on above: Performed By: #### C RP, LIVER, BMP #### [facility] [address] [address] [address] Raymundo Rodriguez Sodium [Moles/Vol] 143 mmol/L Normal 136-145 [facility] Comment on above: Performed By: #### C RP, LIVER, BMP #### [facility] [address] [address] [address] Raymundo Rodriguez Urea nitrogen [Mass/Vol] 13.0 mg/dL Normal 6.4-19.3 [facility] Comment on above: Performed By: #### C RP, LIVER, BMP #### [facility] [address] [place] [address] Dr. Raymundo Rodriguez Urea nitrogen/Creatinine [Mass ratio] 10.8 mg/mg Normal [facility] Comment on above: Performed By: #### C RP, LIVER, BMP #### [facility] [address] [place] [address] Dr. Raymundo Rodriguez SED RATE WESTERGRENon 2021 SED RATE 6 mm/hr Normal <=15 [facility] Comment on above: Performed By: #### C RP, LIVER, BMP #### [facility] [address] [place] [address] Dr. Raymundo Rodriguez BILIRUBIN CONJUGATED (DIRECT )on 07-07-2021 BILI, CONJUGATED 0.1 mg/dL Normal 0.0-0.3 [facility] Comment on above: Performed By: #### C RP, LIVER, BMP #### [facility] [address] [place] [address] Dr. Raymundo Rodriguez CBC AUTO DIFFon 07-07-2021 BASO # 0.0 103/ul Normal 0.0-0.1 [facility] Comment on above: Performed By: #### C BC #### [facility] [address] [place] [address] Dr. Raymundo Rodriugez Basophils/100 WBC (Bld) 0.4 % Normal 0.2-2.0 [facility] Comment on above: Performed By: #### C BC #### [facility] [address] [place] [address] Dr. Raymundo Rodriguez EO # 0.1 103/ul Normal 0.0-0.7 [facility] Comment on above: Performed By: #### C BC #### [facility] [address] [place] [address] Dr. Raymundo Rodriguez Eosinophils/100 WBC (Bld) 1.1 % Normal 0.9-7.0 [facility] Comment on above: Performed By: #### C BC #### [facility] [address] [place] [address] Dr. Raymundo Rodriguez Erythrocyte distribution width (RBC) [Ratio] 12.2 % Normal 11.0-15.0 [facility] Comment on above: Performed By: #### C BC #### [facility] [address] [place] [address] Dr. Raymundo Rodriguez Hematocrit (Bld) [Volume fraction] 46.7 % Normal 42.0-54.0 [facility] Comment on above: Performed By: #### C BC #### [facility] [address] [place] [address] Dr. Raymundo Rodriguez Hemoglobin (Bld) [Mass/Vol] 15.5 g/dL Normal 14.0-18.0 [facility] Comment on above: Performed By: #### C BC #### [facility] [address] [place] [address] Dr. Raymundo Rodriguez IG # 0.01 10e3/ul Normal 0.00-0.03 [facility] Comment on above: Performed By: #### C BC #### [facility] [address] [place] [address] Dr. Raymundo Rodriguez IG % 0.2 % Normal 0.0-0.5 [facility] Comment on above: Performed By: #### C BC #### [facility] [address] [place] [address] Dr. Raymundo Rodriguez LYMPH # 0.9 103/ul Critically low 1.2-3.8 [facility] Comment on above: Performed By: #### C BC #### [facility] [address] [place] [address] Dr. Raymundo Rodriguez Lymphocytes/100 WBC (Bld) 17.2 % Critically low 20.5-60.0 [facility] Comment on above: Performed By: #### C BC #### [facility] [address] [place] [address] Dr. Raymundo Rodriguez MANUAL DIFF REQ NO Normal [facility] Comment on above: Performed By: #### C BC #### [facility] [address] [place] [address] Dr. Raymundo Rodriguez MCH (RBC) [Entitic mass] 30.7 pg Normal 25.9-34.0 [facility] Comment on above: Performed By: #### C BC #### [facility] [address] [place] [address] Dr. Raymundo Rodriguez MCHC (RBC) [Mass/Vol] 33.2 g/dL Normal 29.9-35.2 [facility] Comment on above: Performed By: #### C BC #### [facility] [address] [place] [address] Dr. Raymundo Rodriguez MCV (RBC) [Entitic vol] 92.5 fL Normal 80.0-94.0 [facility] Comment on above: Performed By: #### C BC #### [facility] [address] [place] [address] Dr. Raymundo Rodriguez MONO # 0.5 103/ul Normal 0.3-0.8 [facility] Comment on above: Performed By: #### C BC #### [facility] [address] [place] [address] Dr. Raymundo Rodriguez Monocytes/100 WBC (Bld) 9.1 % Normal 1.7-12.0 [facility] Comment on above: Performed By: #### C BC #### [facility] [address] [place] [address] Dr. Raymundo Rodriguez NEUT # 3.9 103/ul Normal 1.4-6.5 [facility] Comment on above: Performed By: #### C BC #### [facility] [address] [place] [address] Dr. Raymundo Rodriguez Neutrophils/100 WBC (Bld) 72.0 % Normal 43.0-75.0 [facility] Comment on above: Performed By: #### C BC #### [facility] [address] [place] [address] Dr. Raymundo Rodriguez Platelet mean volume (Bld) [Entitic vol] 11.2 fL Normal 9.5-13.5 [facility] Comment on above: Performed By: #### C BC #### [facility] [address] [place] [address] Dr. Raymundo Rodriguez PLT 179 103/ul Normal 150-450 [facility] Comment on above: Performed By: #### C BC #### [facility] [address] [address] [address] Raymundo Rodriguez RBC 5.05 106/ul Normal 4.70-6.10 [facility] Comment on above: Performed By: #### C BC #### [facility] [address] [place] [address] Dr. Raymundo Rodriguez WBC 5.4 103/ul Normal 4.0-11.0 [facility] Comment on above: Performed By: #### C BC #### [facility] [address] [place] [address] Dr. Raymundo Rodriguez CRPon 07-07-2021 CRP [Mass/Vol] mg/L Normal <=1.0 [facility] Comment on above: Performed By: #### C RP, LIVER, BMP #### [facility] [address] [place] [address] Dr. Raymundo Rodriguez PROF 14(COMP METB)on 022 Albumin [Mass/Vol] 3.6 g/dL Normal 3.4-5.0 [facility] Comment on above: Performed By: #### C RP, LIVER, BMP #### [facility] [address] [place] [address] Dr. Raymundo Rodriguez Albumin/Globulin [Mass ratio] 1.0 {ratio} Normal [facility] Comment on above: Performed By: #### C RP, LIVER, BMP #### [facility] [address] [place] [address] Dr. Raymundo Rodriguez ALP [Catalytic activity/Vol] 97 U/L Normal 46-116 [facility] Comment on above: Performed By: #### C RP, LIVER, BMP #### [facility] [address] [place] [address] Dr. Raymundo Rodriguez ALT [Catalytic activity/Vol] 26 U/L Normal 16-63 [facility] Comment on above: Performed By: #### C RP, LIVER, BMP #### [facility] [address] [place] [address] Dr. Raymundo Rodriguez Anion gap [Moles/Vol] 12.4 mmol/L Normal [facility] Comment on above: Performed By: #### C RP, LIVER, BMP #### [facility] [address] [place] [address] Dr. Raymundo Rodriguez AST [Catalytic activity/Vol] 17 U/L Normal 15-37 [facility] Comment on above: Performed By: #### C RP, LIVER, BMP #### [facility] [address] [place] [address] Dr. Raymundo Rodriguez Bilirubin [Mass/Vol] 0.3 mg/dL Normal 0.2-1.3 [facility] Comment on above: Performed By: #### C RP, LIVER, BMP #### [facility] [address] [place] [address] Dr. Raymundo Rodriguez Calcium [Mass/Vol] 8.4 mg/dL Critically low 8.5-10.1 [facility] Comment on above: Performed By: #### C RP, LIVER, BMP #### [facility] [address] [place] [address] Dr. Raymundo Rodriguez Chloride [Moles/Vol] 104 mmol/L Normal 98-107 [facility] Comment on above: Performed By: #### C RP, LIVER, BMP #### [facility] [address] [place] [address] Dr. Raymundo Rodriguez CO2 [Moles/Vol] 29.9 mmol/L Normal 22.0-30.0 [facility] Comment on above: Performed By: #### C RP, LIVER, BMP #### [facility] [address] [place] [address] Dr. Raymundo Rodriguez Creatinine [Mass/Vol] 1.16 mg/dL Normal 0.66-1.25 [facility] Comment on above: Performed By: #### C RP, LIVER, BMP #### [facility] [address] [place] [address] Dr. Raymundo Rodriguez EGFR-AF STATELESS >60 Normal >=60 [facility] Comment on above: Performed By: #### C RP, LIVER, BMP #### [facility] [address] [place] [address] Dr. Raymundo Rodriguez EGFR-NON AF STATELESS >60 Normal >=60 [facility] Comment on above: Performed By: #### C RP, LIVER, BMP #### [facility] [address] [address] [address] Raymundo Rodriguez Globulin (S) [Mass/Vol] 3.6 g/dL Normal [facility] Comment on above: Performed By: #### C RP, LIVER, BMP #### [facility] [address] [place] [address] Dr. Raymundo Rodriguez Glucose [Mass/Vol] 88 mg/dL Normal 74-106 [facility] Comment on above: Performed By: #### C RP, LIVER, BMP #### [facility] [address] [place] [address] Dr. Raymundo Rodriguez Potassium [Moles/Vol] 4.3 mmol/L Normal 3.4-5.0 [facility] Comment on above: Performed By: #### C RP, LIVER, BMP #### [facility] [address] [place] [address] Dr. Raymundo Rodriguez Protein [Mass/Vol] 7.2 g/dL Normal 6.1-8.2 [facility] Comment on above: Performed By: #### C RP, LIVER, BMP #### [facility] [address] [place] [address] Dr. Raymundo Rodriguez Sodium [Moles/Vol] 142 mmol/L Normal 137-145 [facility] Comment on above: Performed By: #### C RP, LIVER, BMP #### [facility] [address] [place] [address] Dr. Raymundo Rodriguez Urea nitrogen [Mass/Vol] 15.0 mg/dL Normal 6.4-19.3 [facility] Comment on above: Performed By: #### C RP, LIVER, BMP #### [facility] [address] [place] [address] Dr. Raymundo Rodriguez Urea nitrogen/Creatinine [Mass ratio] 12.9 mg/mg Normal [facility] Comment on above: Performed By: #### C RP, LIVER, BMP #### [facility] [address] [id number] [address] Raymundo Rodriguez SED RATE [facility] 2021 SED RATE 5 mm/hr Normal <=15 [facility] Comment on above: Performed By: #### C RP, LIVER, BMP #### [facility] [address] [place], [place] [address] Dr. 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; IBD (inflammatory bowel disease); Immunosuppressed status Start: 11-04-2024 End: 11-04-2024 ambulatory JOSI MARIANO [facility] Start: 06-24-2024 End: 06-24-2024 [facility] Start: 03-30-2023 End: 03-30-2023 ambulatory Garrett Dominguez Facility:[facility] Start: 03-30-2023 End: 03-30-2023 ambulatory PHYSICIAN NO [facility] Work Phone: Start: 03-30-2023 End: 03-30-2023 Departed Referred PHYSICIAN NO [facility] Work Phone: Start: 03-29-2023 End: 03-29-2023 ambulatory PHYSICIAN NO FAMILY Facility:[facility] Start: 03-29-2023 End: 03-29-2023 ambulatory PHYSICIAN NO [facility] Work Phone: Start: 03-29-2023 End: 03-29-2023 Departed Referred PHYSICIAN NO [facility] [address] Work Phone: Start: 03-28-2023 End: 03-28-2023 ambulatory PHYSICIAN NO FAMILY Facility:[facility] Start: 03-28-2023 End: 03-28-2023 ambulatory PHYSICIAN NO [facility] Work Phone: Start: 03-28-2023 End: 03-28-2023 Departed Referred PHYSICIAN JOSE [facility] [address] Work Phone: Start: 03-26-2023 End: 03-27-2023 ambulatory None Provider Facility: Start: 03-15-2023 End: 03-15-2023 Subsequent hospital visit by physician Josi Mariano MD Work Phone: [facility] Comment on above: Arrived Start: 06-07-2022 End: 06-07-[address] BELLA MISAlirio Facility:[facility] Start: 05-12-2022 End: 05-12-2022 ambulatory None Provider Facility: Start: 03-15-2022 End: 03-16-[address] BELLA MISC Facility:[facility] Start: 01-12-2022 End: 01-12-[address] BELLA MISC Facility:[facility] Start: 11-10-2021 End: 11-10-[address] BELLA MISC Facility:[facility] Start: 09-08-2021 End: 09-08-[address] BELLA MISC Facility:[facility] Start: 07-07-2021 End: 07-07-[address] BELLA MISC Facility:[facility] Procedures Date Procedure Procedure Detail Performing Clinician Start: 11-04-2024 Basic metabolic pane l calcium total Josi Mariano MD Work Phone: Start: 11-04-2024 Hepatic function panel Josi Mariano MD Work Phone: Start: 03-28-2023 Plain chest X-ray PHYSI MONTY NO FAMILY Plan of Treatment Date Care Activity Detail Author Start: 08-28-2033 Tetanus Diphtheria and Pertussis Vaccines (8 - Td or Tdap) Tetanus Diphtheria and Pertussis Vaccines (8 - Td or Tdap) [facility] Start: 02-17-2025 End: 02-17-2025 Patient encounter procedure 02/17/2025 2:00 PM EST Office Visit Gastroenterology - [address] [address] Josi Mariano MD [address] [place] [id number] Follow up/IBD [facility] - [place] Comment on above: Follow up/IBD Start: 11-17-2024 FLU (#1) FLU (#1) [facility] Start: 11-17-2022 FLU (#1) FLU (#1) [facility] Start: 05-05-2020 Hepatitis A (2 of 2 - Risk 2-dose series) Hepatitis A (2 of 2 - Risk 2-dose series) [facility] Start: 2020 Hearing Screening Hearing Screening [facility] Start: 2020 PATH Education 18+ Years PATH Education 18+ Years [facility] Start: 12-01-2019 HPV (2 - Male 3-dose series) HPV (2 - Male 3-dose series) [facility] Start: 2018 MenB (1 of 2 - MenB 2-Dose Series Bexsero) MenB (1 of 2 - MenB 2-Dose Series Bexsero) [facility] Start: 2017 PATH Education 15-17+ Years PATH Education 15-17+ Years [facility] Start: 2017 Vision Screening Vision Screening [facility] Start: 2014 PATH Education 12-14+ Years PATH Education 12-14+ Years [facility] Start: 2014 PATH Transitional Assessment PATH Transitional Assessment [facility] Start: 2013 HPV (1 - Male 2-dose series) HPV (1 - Male 2-dose series) [facility] Start: 2009 Tetanus Diphtheria and Pertussis Vaccines (1 - Tdap) Tetanus Diphtheria and Pertussis Vaccines (1 - Tdap) [facility] Start: 2007 COVID-19 (#1) COVID-19 (#1) [facility] Start: 2003 MMR (1 of 1 - Standard series) MMR (1 of 1 - Standard series) [facility] Start: 2003 Varicella (1 of 2 - 2-dose childhood series) Varicella (1 of 2 - 2-dose childhood series) [facility] Start: 2002 Hepatitis B (1 of 3 - 3-dose series) Hepatitis B (1 of 3 - 3-dose series) [facility] End: 03-15-2023 Genetic Sendout Genetic Sendout Lab Routine For lab collect this frequency defaults to the next routine lab draw time. Routine times: 0600; 1100; 1400; 1900; 2200 for 1 Occurrences starting 03/15/2023 until 03/15/2023 [facility] Work Phone: Comment on above: For lab collect this frequency defaults to the next routine lab draw time. Routine times: 0600; 1100; 1400; 1900; 2200 for 1 Occurrences starting 03/15/2023 until 03/15/2023 Genetic Sendout: Genetic Sendout : Lab Routine 03/15/2023 12:00 PM EST [facility] End: 11-04-2024 Quantiferon TB Gold [facility] Work Phone: Comment on above: 1 Occurrences starting 11/04/2024 until 11/04/2024 Payers Date Payer Category Payer Self-pay 2015 Private Health Insurance [id number] 2002 Unknown [id number] 2002 Unknown [id number] 2002 Unknown [id number] 2002 Unknown [id number] 2002 Unknown [id number] 2002 Unknown [id number] 2002 Unknown [id number] 2002 Unknown [id number] 2002 Unknown [id number] 2002 Unknown [id number] 1959 Private Health Insurance [id number] Private Health Insurance [employer] [id number] Unknown [id number] Unknown [id number] Unknown [id number] Social History Date Type Detail Facility Start: 01-23-2019 End: 06-24-2024 Tobacco smoking status NHIS Never smoked tobacco [facility] Start: 01-23-2019 End: 06-24-2024 Tobacco use and exposure Smokeless tobacco non-user [facility] Start: 01-26-2023 End: 11-04-2024 Alcohol intake Current non-drinker of alcohol (finding) [facility] Start: 01-26-2023 End: 11-04-2024 Alcohol intake [facility] Start: 01-26-2023 Tobacco use panel [facility] Start: 2002 Sex Assigned At Not on file [facility] Start: 2002 Sex Assigned At Male [facility] Start: 05-04-2015 Sex Male (finding) [facility] NEGATED: Highlighted rowStart: NINF History of tobacco use Passive smoker [facility] Procedure note 03-30-2023 Note Date & Type Note Facility 03-30-2023 Procedure note [facility] Clinical Note 05-12-2022 Note Date & Type [...] Follow these instructions at home: ? Take rhbb-[id number]-bkxvept and prescription medicines only as told by [...] clean them according to instructions from the junior systems administrator and your health care provider. Contact a [...] provider. Document Revised: 06/22/2020 Document Reviewed: 06/22/2020 [employer] Patient Education ? 2021 [employer]. 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 (inflammatory bowel disease) Other and unspecified noninfectious gastroenteritis and colitis Immunosuppressed status Unspecified disorder of immune mechanism documented in this encounter [facility] Summary Purpose Family History No Family History [...] pe pre emp labs Chief Complaint [facility] police/ff pre emp pe pre emp labs FF/Police pre emp [place] [facility] Additional Source Comments (unrecognized sect ion and content) No Status Records FoundNo Status Records FoundNo Status Records FoundNo Status Records FoundNo Status Records Found INFORMATION SOURCE (unrecogn ized section and content) DATE CREATED AUTHOR 06/24/2022 [facility] DATE CREATED AUTHOR AUTHOR'S ORGANIZ ATION 01/28/2023 [facility] DATE CREATED AUTHOR AUTHOR'S ORGANIZ ATION 03/27/2023 [facility] [place] [facility] DATE CREATED AUTHOR AUTHOR'S ORGANIZ ATION 04/01/2023 [facility] DATE CREATED AUTHOR AUTHOR'S ORGANIZ ATION 11/10/2024 [facility] Care Teams (unrecognized sec tion and content) Linux Architect Relationship Specialty Start Date End Date Juan Pierre MD [address] [place] [address] [place] [address] PCP - General Pediatrics 05/04/15 Team Status: Active Member Role Status Dates PHYSICIAN NO FAMILY Primary Care Provider Active Team Status: Inactive Member Role Status Dates PHYSICIAN NO FAMILY Primary Care Provider Active Garrett Dominguez Jr, DO Attending Provider Active Team Status: Inactive Member Role Status Dates PHYSICIAN NO FAMILY Primary Care Provider Active Chad Wren DO [facility] Attending Provider Active Team Status: Inactive Member Role Status Dates Edward Radatz Jr, Attending Provider Active Josué Kimble MD Referring Provider Active PHYSICIAN NO FAMILY Primary Care Provider Active Linux Architect Relationship Specialty Start Date End Date Juan Pierre MD [address] [place] [address] [place] [address] PCP - General Pediatrics 05/04/15 Goals (unrecognized section and content) Goals may [...] BE BASED ON THE PRIMARY CLINICAL RECORDS. [employer] [facility]. provides no warranty or guarantee of the accuracy or completeness of information in this document.
[2024-12-22 09:30] LABS: Hematocrit 44.0 % (42.0-54.0); Hemoglobin 15.1 g/dL (14.0-18.0); Immature Granulocytes Abs Auto 0.01 10^3/uL (0.00-0.03); Immature Granulocytes Pct Auto 0.2 % (0.0-0.5); Lymphocytes Absolute Auto 2.0 10^3/uL (1.2-3.8); Mean Corpuscular HGB Conc 34.3 g/dL (29.9-35.2); Mean Corpuscular Hemoglobin 31.0 pg (25.9-34.0); Mean Corpuscular Volume 90.3 fL (80.0-94.0); Platelet Count 197 10^3/uL (150-450); Red Blood Count 4.87 10^6/uL (4.70-6.10); White Blood Count 5.3 10^3/uL (4.0-11.0)
[2024-12-22 10:12] LABS: Alanine Aminotransferase 39 U/L (16-63); Albumin Globulin Ratio 0.9; Albumin Level 3.5 g/dL (3.4-5.0); Alkaline Phosphatase 89 U/L (46-116); Anion Gap 9.5; Aspartate Amino Transferase 17 U/L (15-37); Blood Urea Nitrogen 14.0 mg/dL (7.0-18.0); Calcium 8.6 mg/dL (8.5-10.1); Carbon Dioxide 29.1 mmol/L (21.0-32.0); Chloride 105 mmol/L (98-107); Estimated GFR (African America >60 (>=60 mL/min/1.73m^2); Estimated GFR (Non-African Ame >60 (>=60 mL/min/1.73m^2); Globulin 3.7 g/dL; Glucose 147 mg/dL (74-106); Potassium 3.6 mmol/L (3.5-5.1); Sodium 140 mmol/L (136-145); Total Protein 7.2 g/dL (6.4-8.2)
== END 2024-12-22 09:12 | disposition home or self-care (01) ==
LOC: LAB 09:14
PROVIDERS: Visit Provider Pediatrics
DX: K52.9 Noninfective gastroenteritis and colitis, unspecified (principal); K51.00 Ulcerative (chronic) pancolitis without complications; D84.9 Immunodeficiency, unspecified
CPT/HCPCS: 36415; 80048; 80076; 85025; 86140